=== PATIENT | male | born 1930 | race Caucasian/White ===

== ENCOUNTER 2017-05-01 08:01 | Inpatient (IN) | payer MEDICARE, OTHER ==
[2017-05-01] VITALS (17 sets, daily range): BP systolic 125–164; BP diastolic 66–96
[~2017-05-01] VITALS: Ht 180.3 cm; Wt 80.3 kg
[~2017-05-01 08:01] MED LIST: AMLODIPINE10 MG PO; ASPIRIN 81MG TA81 MG PO; DAILY MULTIPLE1 T11 PO; IMDUR 30MG. TAB30 MG PO; LEVAQUIN500 MG PO; METOPROLOL25 MG PO; PLAVIX75 M1 PO
[2017-05-01 08:20] LABS: HEMOGLOBIN 11.6 g/dL (14.1-18.0); LYMPH # 1.7 K/mm3 (0.7-4.5); LYMPH % 12.5 % (10-50)
[2017-05-01] MEDS ORDERED: AMLO5TAB PO (08:28)
--- NOTE | 2017-05-01 08:33 | Emergency Room Report ---
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 PER PT REPORT FELL OUTSIDE MONDAY, STATED PT WAS ON THE COUCH AT HIS HOUSE UNTIL EARLY THIS MORNING WHEN HE "SLID" OFF THE COUCH WHILE FAMILY WAS HELPING HIM CHANGE HIS CLOTHES. PT REPORTS R HIP PAIN SINCE INITIAL FALL MONDAY. 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 N Clinical Suspician of Infection? N Mental Status: 1 - Regular (Normal Baseline) Sepsis Risk:Low Sepsis Risk Have you (or family members/close friends) recently traveled outside the [place]? N If Yes, where/when: Have you had exposure to infectious disease within the past month? N TB? Other? Specify: Patient accidentally tripped and fell outside his home 2.5 days ago with negative LOC, landing on his right hip. He has had pain, a rotated and shortened RLE since that time, and is unable to bear weight. His sons carried him inside and placed him on the sofa. He slid off the sofa this morning. He has been urinating using a bedside urinal but has not moved his bowels. He is [place]. He denies any numbness or tingling. He does not have a PCP, and was last seen by Dr. Schumacher. ALLERGIES Coded Allergies: BANANAS (FOOD) (05/01/17) Home Medications Reported Medications ASPIRIN (Aspirin) 81 MG PO DAILY MULTIVITAMIN (Daily Multiple Vitamin) 1 TAB PO DAILY Amlodipine Besylate (Amlodipine) 5 MG PO DAILY History Medical History General CAD? No Angina: No [place]: No Hypertension? Yes Hyperlipidemia? No CHF? No DVT? No PE? No COPD? No Asthma? No Anemia? No GERD? No Gastric ulcers? No GI Bleed? No Hernia? No Thyroid Problems? No Hypothyroidism? No CVA? No Seizures? No Diabetes? No Renal Insuffiency? No End Stage Renal Disease? No UTI? No Stones? No BPH? No GB Disease: No Nephritic Syndrome? No Asplenia? No Hepatitis? No Sickle Cell Disease? No Arthritis? No Migraines? No Cataracts? No Glaucoma? No MRSA? No HIV? No TB? No Anxiety? No Depression? No Cancer? No More? No Immunization Hx DT/Tetanus Unknown Flu Refused Pneumonia Refuses Surgical Hx Previous Surgery?Y MASTOID CAROTID CARDIAC STENTS X3 Family History Family Hx Diabetes Yes CAD Yes Hypertension Yes Hyperlipidemia Yes Cancer Yes TB No Social History Smoking Hx Smoker: Never Smoker Tobacco: No Alcohol Alcohol: No Review of Systems All Other Systems Reviewed and Negative Cardiovascular denies no symptoms reported (hx cardiac stents) Gastrointestinal see HPI, constipation Musculoskeletal see HPI, denies back pain, joint pain, denies neck pain Physical Exam Vital Signs Vital Signs Date Time Temp Pulse Resp B/P Pulse O2 O2 Flow FiO2 Ox Delivery Rate 05/01 1044 98.2 74 18 157/101 96 05/01 0935 67 18 153/87 95 05/01 0824 73 18 146/91 94 05/01 0820 18 05/01 0801 97.9 71 18 164/96 94 General Appearance normal appearance, WD/WN, no apparent distress Eye Exam - bilateral eye normal exam, bilateral eye PERRL, bilateral eye EOMI Neck normal inspection, non-tender, supple, full range of motion Respiratory Status Yes: trachea midline, chest symmetrical, non tender chest. No: respiratory distress, tender on palpation, use of accessory muscles, pain on inspiration, pain on expiration, productive cough, non productive cough. Lung Sounds bilateral: normal breath sounds, lungs clear. Cardiovascular normal exam, regular rate/rhythm, no peripheral edema, no gallop, no JVD, no murmur, no rub Peripheral Pulses Peripheral Pulses 2+ dorsalis pedis (R), 2+ dorsalis pedis (L) (DP and PT pulses full B) Gastrointestinal normal bowel sounds, normal exam, non tender, soft, no organomegaly, no pulsatile mass, no guarding, no rebound Back normal inspection, no vertebral tenderness, bowel/bladder continent, no vertebral tenderness, crepitus, deformity, or stepoffs noted. Patient arrived immobilized and backboarded per EMS. Extremities pelvis stable, Exquisite point tenderness, right trochanteric region ; RLE shortened and externally rotated; ROM not checked on right hip due to shortened/rotated limb and pain level, has good ROM distally with well perfused limbs. Strength 4 Lower Ext (R), 5 Upper Ext (L), 5 Upper Ext (R), 5 Lower Ext (L) Neurologic alert, normal exam, oriented x 3, Alert, conversant, very [place] baseline, diminished ROM right hip due to fall but otherwise nonfocal exam; speech clear and fluent. Glascow Coma Scale Glascow Coma Scale Response Value EYE response: 4 Spontaneously 4 MOTOR response: 6 OBEYS 6 VERBAL response: 5 Oriented & Converses 5 Total 15 Skin intact, normal color, warm/dry Lymphatic no adenopathy Medical Decision Making LABS/Meds/Orders Pt receiving controlled substance in ED? No Results/Orders Laboratory Tests 05/01/17 0930: Urine Color YELLOW, Urine Appearance CLEAR, Urine pH 5.5, Ur Specific [place] 1.025, Urine Protein 2+ H, Urine Ketones NEGATIVE, Urine Blood 2+ H, Urine Nitrate NEGATIVE, Urine Bilirubin NEGATIVE, Urine Urobilinogen 0.2, Ur Leukocyte Esterase NEGATIVE, Urine RBC 3-5, Urine WBC OCC, Ur Squamous Epith Cells OCC, Urine Bacteria 2+, Urine Glucose NEGATIVE 05/01/17 0810: Sodium 138, Potassium 4.1, Chloride 102, Carbon Dioxide 24, BUN 42 H, Creatinine 2.9 H, Estimated Creat Clear 23 L, Estimated GFR (MDRD) 21, Glucose 112 H, Calcium 9.2, Total Bilirubin 1.0, AST 56 H, ALT 19, Alkaline Phosphatase 78, Total Protein 8.1, Albumin 3.5, Globulin 4.6 H, Albumin/ Globulin Ratio 0.8 L, WBC 13.5 H, RBC 3.76 L, Hgb 11.6 L, Hct 34.4 L, MCV 91.7, RDW 14.5, Plt Count 229, MPV 8.0, Gran % 77.8, Gran # 10.5 H, Lymphocytes % 12.5, Monocytes % 6.4, Eosinophils % 2.4, Basophils % 0.8, Lymphocytes # 1.7, Monocytes # 0.9, Eosinophils # 0.3, Basophils # 0.1, PUBS MCHC 33.8, MCH 31.0 Current Medication Orders Sig/David Start time Last Medication Dose Route Stop Time Status Admin Amlodipine Besylate 5 MG DAILY 05/02 0900 DC PO Morphine Sulfate 2 MG Q2HP PRN 05/01 1015 DC 05/01 IV 1115 Ondansetron HCl 4 MG Q6HP PRN 05/01 1015 DC IV Sodium Chloride 10 ML PRN PRN 05/01 1015 DC IV Sodium Chloride 1,000 ML .[id number] 05/01 1015 AC 05/01 IV 05/01 2334 1119 Morphine Sulfate 2 MG ONCE ONE 05/01 0830 DC 05/01 IV 05/01 0831 0820 Ondansetron HCl 4 MG ONCE ONE 05/01 0830 DC 05/01 IV 05/01 0831 0821 Morphine Sulfate 0 .STK-MED ONE 05/01 08 DC .ROUTE Ondansetron HCl 0 .STK-MED ONE 05/01 0819 DC .ROUTE Sodium Chloride 10 ML PRN PRN 05/01 0815 DC IV 05/02 0803 Orders Procedure Date/time Status CULTURE, URINE 05/01 930 Active ECHO ADULT 05/01 09 Active Decision to admit 05/01 09 Active ELECTROCARDIOGRAM REQUEST 05/01 0853 Active URINARY CATHETER INSERT 05/01 0853 Active URINALYSIS/COMPLETE 05/01 0853 Complete IV SALINE LOCK 05/01 0804 Active CBC WITH AUTO DIFF 05/01 0804 Complete CHEM 12 PROFILE 05/01 0804 Complete ADMIT PATIENT 05/01 UNK Active 12 LEAD EKG-LISA (INITIAL) 05/01 UNK Active VITAL SIGNS 05/01 UNK Active IV SALINE LOCK 05/01 UNK Active GEN NSG/PT REQ (NOT FOR MEDS!) 05/01 UNK Active URINARY CATHETER INSERT 05/01 UNK Active CODE STATUS 05/01 UNK Active PATIENT ACTIVITY ORDER 05/01 UNK Active [facility] PHYS CONSULT 05/01 UNK Active CM/EKG CM/EKG EKG rate, NSR, rhythm, no evid. of ischemic chgs, no ectopy (rate 77;), normal QRS, normal AR, normal EKG (LVH, NSR w occ APC) XRAY/CT/US XRAY/CT/US XRAY chest, femur, hip XR interpretation by reviewed by me, discussed w/radiologist Xray Results intertrochanteric fracture with vertical extension to lesser trochanter Consult MD Physician Consult 1 Consult/PCP Dr. Caldwell recommending admit to PCP and consult cardiology for preop. Time Called 08 Reason Orthopedic eval/care Physician Consult 2 Time Called 907 Physician Consult 3 Consult/PCP Uday Ponce: obtain ECHO this AM;will see on floor. Time Called 911 Reason Cardiology eval/care Comments Cardiology preop consult per request from Dr. Caldwell prior to anticipated repair of intertrochanteric fracture on right. Progress ED Progress Notes Date 05/01/17 Time 1931 Comment Patient has apparently been seen by Dr. Sexton in the past, although he had stated he had no PCP. Admitting MD changed after update following admission with Dr. Sexton and Dr. Goldstein aware. Departure Departure Time of Disposition 912 Disposition Still a Patient Clinical Impression Primary Impression: Fracture, intertrochanteric, right femur Qualifiers: Encounter type: initial encounter Fracture type: closed Condition STABLE Referrals NO REFERRAL (PCP) ED Critical Care Critical Care No at [phone]
--- NOTE | 2017-05-01 09:27 | RADIOLOGY REPORT PS360 ---
CHEST-AP VIEW ONLY Ordering physician: Gayathri Hummel MD Age: 86 years Male INDICATION: chest symptomsFX HIP. Fall. Hip fracture Chest injury PROCEDURE: CHEST-AP VIEW ONLY/ AP portable CXR p FINDINGS: Prior P CXR 11/14/[address] obscuring detail particularly at chest wall. No rib fractures evident. No pneumothorax. No pleural effusion. . Granulomatous calcified hilar nodes bilaterally similar to prior studies. Lungs are clear with no active disease... No acute findings Borderline-mild cardiomegaly. Normal pulmonary vascularity. Hilar and mediastinal structures appear stable & satisfactory. Chest wall unremarkable... I would note that the right aspect of T10 vertebra is not is well delineated as adjacent vertebra however this appearance is unchanged since at 11/13/2016 portable chest film, may merely be projectional & related to the other changes at this level including the prominent marginal osteophytes to the right at T10-11. However there is back pain a would recommend a T-spine series long-standing significant lower thoracic pain consider further evaluation with CT chest/ CT T-spine Postsurgical changes base of right neck likely from previous thyroid surgery. IMPRESSION . lungs clear with nothing definitely acute. Patient on backboard Borderline -mild cardio megaly Cortex along Right aspect of T10 is not as well delineated as other vertebral bodies but I suspect this is stable since October. Question some vague soft tissue density along the right aspect of T10.. However if there should be lower back pain additional evaluation with at least a thoracic spine series when can be tolerated;, with low threshold for pursuing CT of chest or T-spine would be appropriate.--particularly If this appearance seems real and persist persist follow-up plain films T-spine
--- NOTE | 2017-05-01 09:27 | RADIOLOGY REPORT PS360 ---
FEMUR-RT-2 VIEWS HISTORY: fell, has shortened/externally rotated RLE;can't bear wt Right hip pain/fracture. Patient Age: 86 years: Male Ordering Physician: Gayathri Hummel MD TECHNIQUE: Limited AP view of proximal femur a lateral view of distal femur obtained. Patient on backboard. COMPARISON :Single view right hip from today FINDINGS Intertrochanteric fracture right hip, which extends oblique fashion patient to the cortex medial subtrochanteric region,, inferior to the lesser trochanter. Comminuted fracture of the lesser trochanter. Current views are limited not optimal. The right femoral head appears intact the hip joint spaces intact. IMPRESSION: Intertrochanteric fracture which extends to the subtrochanteric region medially , inferior to the comminuted lesser trochanteric fracture. Likely it is the vertical fracture line passing through the base of comminuted lesser trochanter fracture that extends to the subtrochanteric region.. . additional views of right hip pending
[2017-05-01 09:49] LABS: URINE BILIRUBIN - DIPSTICK NEGATIVE (NEG); URINE BLOOD 2+ (NEG)
[2017-05-01 10:15] LABS: URINE SQUAMOUS CELLS OCC #/hpf (OCC)
--- NOTE | 2017-05-01 12:06 | CONSULT NOTE ---
Standard Demographics Patient Demo Date of Consultation: 05/01/17 Referring Provider: Pepper Goldstein MD Reason for Consultation: Pre-op evaluation PRIMARY DIAGNOSIS: RIGHT HIP FRACTURE Problem list Problem list: 1. HTN A. Echocardiogram 11/14/16 EF 40-45% with moderate to severe MR 2. JESÚS A. Right CEA, about [id number] B. Carotid ultrasound, 11/14/16, 50-69%LICA stenosis, less than 20% RCA stenosis 3. Remote tobacco use, stopped about 40 yrs ago 4. Hyperlipidemia A. LDL 146, 10/2016 5. CKD, stage 4 with Cr 3.0 and GFR 20 6. Abdominal aortic aneurysm, 5 cm, aorta ultrasound 10/2016 7. Coronary artery disease A. Non-ST elevation myocardial infarction, 11/15/16 B. Cardiac catheterization 11/15/2016 showing distal 50-60 percent stenosis of the LEFT main, proximal 50-60 percent stenosis of the left anterior descending, mid vessel 40-50 percent stenosis, very distal sequential 80 percent stenosis with the left anterior descending wrapping around the apex. Nondominant circumflex gives rise to a large ramus with a proximal 30-40 percent nonflow limiting stenosis while the true circumflex has 30 percent mid vessel stenosis. RIGHT coronary artery is large dominant vessel with critical 90 percent ostial stenosis followed by complex 60-70 percent stenosis followed by additional complex long 90 percent stenosis both proximal and distal to the RV marginal followed by the additional complex 90 percent stenosis and distal 40 percent stenosis. LEFT atrial ejection fraction 55 percent. C. 3 drug-eluting stents placed to the RIGHT coronary artery, 11/15/2016. D. Patient initially placed on dual antiplatelet therapy but patient discontinued Plavix and is only taking an aspirin daily 8. Peripheral arterial disease A. RIGHT renal artery stenosis of 40-50 percent proximally, nonflow limiting. LEFT renal artery singular with a severe proximal complex long 80-90 percent stenosis. History of present illness: History of present illness: 86-year-old white male with multiple medical conditions including coronary artery disease, carotid artery stenosis, stage IV chronic kidney disease and abdominal aortic aneurysm was admitted through the emergency department today for RIGHT hip fracture. Patient states he fell on Monday without loss of consciousness and continued to have pain through yesterday. He did not want a running about his weekend but haven't come into the hospital so he waited until today. He denies any recent chest pain or shortness of breath with activity. Patient is admitted with plans for surgery today with cardiology consulted for preop evaluation. Past Medical History: General: Hypertension Yes CVA No Seizures Yes TB No COPD No Asthma No Diabetes No Angina No [place] No Hyperlipidemia No Urinary No Cancer No Rheumatic H.D. No Ulcers No MRSA No GB Disease No Past Surgical HX: Previous Surgery?Y MASTOID CAROTID CARDIAC STENTS X3 Allergies Coded Allergies: BANANAS (FOOD) (11/14/16) Home medications: Reported Medications ASPIRIN (Aspirin) 81 MG PO DAILY MULTIVITAMIN (Daily Multiple Vitamin) 1 TAB PO DAILY Amlodipine Besylate (Amlodipine) 5 MG PO DAILY Current Medications: Current Medications Amlodipine Besylate 5 MG DAILY PO Morphine Sulfate 0 .STK-MED ONE .ROUTE (DC) Sodium Chloride 1,000 ML .STK-MED ONE IV (DC) Morphine Sulfate 2 MG Q2HP PRN IV Ondansetron HCl 4 MG Q6HP PRN IV Sodium Chloride 10 ML PRN PRN IV Sodium Chloride 1,000 ML .[id number] IV Morphine Sulfate 2 MG ONCE ONE IV (DC) Ondansetron HCl 4 MG ONCE ONE IV (DC) Morphine Sulfate 0 .STK-MED ONE .ROUTE (DC) Ondansetron HCl 0 .STK-MED ONE .ROUTE (DC) Sodium Chloride 10 ML PRN PRN IV Immunization HX DT/Tetanus Unknown Flu Refused Pneumonia Refuses Family history Family HX Family Hx Insignificant No Diabetes Yes CAD Yes Hypertension Yes Hyperlipidemia Yes Cancer Yes TB No Social Hx: Smoking HX Tobacco No Are you/the child exposed to second-hand smoke: No Alcohol Alcohol: No Hx of Drug Use Drug Use? No Patien't marital status is Patient's support system is good Review of systems: Constitutional No: no symptoms reported. Respiratory No: no symptoms reported. Cardiovascular No no symptoms reported Gastrointestinal/Abdominal No no symptoms reported Genitourinary No: no symptoms reported. Musculoskeletal see HPI. Neurological Yes: seizure disorder. Exam: Admission Vital Signs: 1ST Vital Signs Result Date Time Pulse Ox 94 05/01 0801 B/P 164/96 05/01 0801 Temp 97.9 05/01 0801 Pulse 71 05/01 0801 Resp 18 05/01 0801 O2 Delivery ROOM AIR 05/01 1126 Last Vital Signs: Vital Signs Result Date Time Pulse Ox 96 05/01 1141 B/P 154/77 05/01 1141 O2 Delivery ROOM AIR 05/01 1141 Temp 97.1 05/01 1141 Pulse 75 05/01 114 Resp 20 05/01 1141 Exam General appearance: alert, awake, no acute distress Neck: carotid bruit Cardiovascular: regular rate & rhythm, regular rate and rhythm with frequent ectopy. Patient has a holosystolic grade 2 to 3/6 systolic ejection murmur noted at the apex.patient also has a murmur in the aortic area grade 2/6. Respiratory: clear to auscultation ABD: soft, no tenderness Extremities: RIGHT leg in traction. Trace edema with good pulses noted of the LEFT lower extremity. Neuro: alert, intact, oriented Laboratory data: Laboratory Tests 05/01/17929: Urine Color YELLOW, Urine Appearance CLEAR, Urine pH 5.5, Ur Specific [place] 1.025, Urine Protein 2+ H, Urine Ketones NEGATIVE, Urine Blood 2+ H, Urine Nitrate NEGATIVE, Urine Bilirubin NEGATIVE, Urine Urobilinogen 0.2, Ur Leukocyte Esterase NEGATIVE, Urine RBC 3-5, Urine WBC OCC, Ur Squamous Epith Cells OCC, Urine Bacteria 2+, Urine Glucose NEGATIVE 05/01/17 0810: Sodium 138, Potassium 4.1, Chloride 102, Carbon Dioxide 24, BUN 42 H, Creatinine 2.9 H, Estimated Creat Clear 23 L, Estimated GFR (MDRD) 21, Glucose 112 H, Calcium 9.2, Total Bilirubin 1.0, AST 56 H, ALT 19, Alkaline Phosphatase 78, Total Protein 8.1, Albumin 3.5, Globulin 4.6 H, Albumin/ Globulin Ratio 0.8 L, WBC 13.5 H, RBC 3.76 L, Hgb 11.6 L, Hct 34.4 L, MCV 91.7, RDW 14.5, Plt Count 229, MPV 8.0, Gran % 77.8, Gran # 10.5 H, Lymphocytes % 12.5, Monocytes % 6.4, Eosinophils % 2.4, Basophils % 0.8, Lymphocytes # 1.7, Monocytes # 0.9, Eosinophils # 0.3, Basophils # 0.1, PUBS MCHC 33.8, MCH 31.0 Microbiology Date/Time Procedure - Status Source Growth 05/01 930 Urine Culture - RECD URINE CATH Plan: Assessment: 1. RIGHT hip fracture with plans for surgical correction. 2. Coronary artery disease as noted above with recent drug-eluting stents placed in the RIGHT coronary artery in October of this year. Patient has been stable on aspirin therapy. Electrocardiogram today is sinus rhythm without acute ST segment changes. He has left ventricular hypertrophy with repolarization abnormalities. 3. Chronic kidney disease, stage IV 4. Carotid artery stenosis, moderate 5. Abdominal aortic aneurysm, 5 cm, clinically stable 6. Hypertension 7. History of medication noncompliance Recommendations: 1. Patient is at an increased but acceptable risk to proceed with surgical correction of his RIGHT hip fracture. Preliminary echocardiogram results shows preserved ejection fraction with continued moderate to severe mitral regurgitation without evidence of significant aortic stenosis. 2. Would recommend continuing aspirin and Norvasc. Pt's states he has not been taking coreg or isosorbide dinitrate for some time. at 1205
--- NOTE | 2017-05-01 12:42 | CONSULT NOTE ---
Consultation findings: Referring physician: Emergency department Date of examination: 05/01/17 Time of examination: 1100 Exam findings: The patient is an 86-year-old gentleman who fell while at home Monday. He states that he noted his "RIGHT leg did not look quite RIGHT" but decided not to come to the hospital until his family prompted him to today. The patient presents medical history of having had a non-STEMI cardio infarction back in October. He was given a stent at that time by Dr. Figueroa. The family states that the patient self discontinued Plavix but continued aspirin. He also has a history of having had multiple seizures and has been seen at [facility] for this but again, seems to self discontinued his seizure medications. He also gives a history of having had an abdominal aneurysm. This is believed to be 5 cm in size. The emergency department physician has documented this quite well as has his cardiology consult. These are reviewed and are not repeated here. Fred Cabrera shows the patient to be alert cooperative and fully cognizant. His RIGHT hip is shortened and externally rotated. He has 1+ pedal pulses bilaterally in the dorsalis pedis and posterior tibialis pulses. He is sensate to light touch. Mild edema present in the RIGHT foot. I protuberant abdomen is noted. I do not detect a pulsatile mass on exam. X-rays the RIGHT hip are reviewed. These show a three-part intertrochanteric hip fracture of the RIGHT. Femoral cortical bone appears excellent as far as mass.. Impression: Subtrochanteric RIGHT hip fracture Seizure disorder Non-STEMI myocardial infarction in October Medication noncompliance The laboratory studies show evidence of a urinary tract infection. Renal function is quite depressed as well. Recommendations: We like to proceed with the hip stabilization using a short gamma nail if possible. Interestingly, the patient's noncompliance with his anticoagulation medicines creates a window of opportunity here we could stabilize her fracture and getting back on his Plavix or other anticoagulants as his attending feels is appropriate. We'll plan on 2 g of Ancef secondary to the patient's size but will likely space the Ancef out much further than normally secondary to the renal clearance issues. I've spoken with the family regarding the surgical and nonsurgical options. They are in agreement that surgical treatment is indicated. at 1242
--- NOTE | 2017-05-01 12:48 | RADIOLOGY REPORT PS360 ---
HIP RT 2- view HISTORY: FALL, OUTWARD ROTATION OF RLE Patient Age: 86 years: Male Ordering Physician: Nasreen Goldstein MD TECHNIQUE: AP and crosstable lateral view of right hip performed. No AP pelvis was imaged as per typical protocol. COMPARISON :Right femur from today FINDINGS The intertrochanteric fracture is again identified as discussed on right femur study. In addition to the oblique fracture through the trochanteric region there is a vertical fracture to the base of the lesser trochanter ; with a mildly comminuted fracture involving the lesser trochanter. Slight medial displacement of the large entire lesser trochanteric fragment noted. The crosstable lateral view suggests mild angulation apex of fracture directed posteriorly. The right femoral head and neck remain intact. Right hip joint space well maintained. What is seen at the partially imaged right hemipelvis unremarkable. Sacrum is not well visualized and cannot exclude abnormalities sacrum on the current studies. IMPRESSION: Intertrochanteric fracture right hip Fracture line extends vertically through the base of the lesser trochanter to the subtrochanteric region Comminuted fracture involving the the lesser trochanter.
--- NOTE | 2017-05-01 15:15 | Anesthesia Record ---
Anesthesia Record Part I Total IV fluids: 1100 EBL (ml): 100 Urine Output: 400 Units of blood given: 0 B/P: 151/65 % SaO2: 94 Pulse: 83 Resps: 10 Temp: 98.1 Patient is: Awake, Stable Stable to PACU at: 1505 at 1510
--- NOTE | 2017-05-01 15:16 | Anesthesia Record ---
Anesthesia Record Part II Discharge time: 1535 Destination: Second Floor PACU nurse assessment review? Yes Patient is: Awake, Stable Anesthesia complications? No at 2473
--- NOTE | 2017-05-01 16:25 | HISTORY AND PHYSICAL REPORT ---
Demographics: Admit date: 05/01/17 Chief complaint: RIGHT hip pain PRIMARY DIAGNOSIS: RIGHT HIP FRACTURE Allergies: Coded Allergies: BANANAS (FOOD) (05/01/17) History of present illness: History of present illness: 86-year-old white male with multiple medical conditions including coronary artery disease, carotid artery stenosis, stage IV chronic kidney disease and abdominal aortic aneurysm was admitted through the emergency department today for RIGHT hip fracture. Patient states he fell on Monday without loss of consciousness and continued to have pain through yesterday. He did not want a running about his weekend but haven't come into the hospital so he waited until today. He denies any recent chest pain or shortness of breath with activity. Patient is admitted with plans for surgery today. The above per cardiology service Patient is now postop from RIGHT hip fracture repair. He denies pain. Notes have been reviewed and confirmed that the patient has not been taking medications as prescribed at discharge from his last hospitalization. Past medical history: Family HX Family Hx Insignificant No Diabetes No CAD Yes Hypertension Yes Hyperlipidemia Yes Cancer No TB No Immunization HX DT/Tetanus Unknown Flu Refused Pneumonia Refuses TB Test in last year No General CAD? No Angina: No PA: No Hypertension? Yes Hyperlipidemia? No CHF? No DVT? No PE? No COPD? No Asthma? No Anemia? No GERD? No Gastric ulcers? No GI Bleed? No Hernia? No Thyroid Problems? No Hypothyroidism? No CVA? No Seizures? Yes Diabetes? No Renal Insuffiency? No UTI? No Stones? No BPH? No GB Disease: No Nephritic Syndrome? No Asplenia? No Hepatitis? No Sickle Cell Disease? No Arthritis? No Migraines? No Cataracts? No Glaucoma? No MRSA? No HIV? No TB? No Anxiety? No Depression? No Cancer? No More? No Past Surgical HX Previous Surgery?Y MASTOID CAROTID CARDIAC STENTS X3 Current home meds: Reported Medications ASPIRIN (Aspirin) 81 MG PO DAILY MULTIVITAMIN (Daily Multiple Vitamin) 1 TAB PO DAILY Amlodipine Besylate (Amlodipine) 5 MG PO DAILY Social Hx: Smoking HX Tobacco No Are you/the child exposed to second-hand smoke: No Alcohol Alcohol: No Hx of Drug Use Drug Use? No Patien't marital status is Patient's support system is good Review of systems: Constitutional no symptoms reported. Respiratory no symptoms reported. Cardiovascular no symptoms reported Gastrointestinal/Abdominal no symptoms reported Genitourinary no symptoms reported. Musculoskeletal see HPI. Neurological Yes: no symptoms reported. Exam: Lab data for last 24 hours: Laboratory Tests 05/01/17929: Urine Color YELLOW, Urine Appearance CLEAR, Urine pH 5.5, Ur Specific [place] 1.025, Urine Protein 2+ H, Urine Ketones NEGATIVE, Urine Blood 2+ H, Urine Nitrate NEGATIVE, Urine Bilirubin NEGATIVE, Urine Urobilinogen 0.2, Ur Leukocyte Esterase NEGATIVE, Urine RBC 3-5, Urine WBC OCC, Ur Squamous Epith Cells OCC, Urine Bacteria 2+, Urine Glucose NEGATIVE 05/01/17809: Sodium 138, Potassium 4.1, Chloride 102, Carbon Dioxide 24, BUN 42 H, Creatinine 2.9 H, Estimated Creat Clear 23 L, Estimated GFR (MDRD) 21, Glucose 112 H, Calcium 9.2, Total Bilirubin 1.0, AST 56 H, ALT 19, Alkaline Phosphatase 78, Total Protein 8.1, Albumin 3.5, Globulin 4.6 H, Albumin/ Globulin Ratio 0.8 L, WBC 13.5 H, RBC 3.76 L, Hgb 11.6 L, Hct 34.4 L, MCV 91.7, RDW 14.5, Plt Count 229, MPV 8.0, Gran % 77.8, Gran # 10.5 H, Lymphocytes % 12.5, Monocytes % 6.4, Eosinophils % 2.4, Basophils % 0.8, Lymphocytes # 1.7, Monocytes # 0.9, Eosinophils # 0.3, Basophils # 0.1, PUBS MCHC 33.8, MCH 31.0 Microbiology 05/01 930 URINE CATH: Urine Culture - RECD Admission vital signs: 1ST Vital Signs Result Date Time Pulse Ox 94 05/01 801 B/P 164/96 05/01 801 Temp 97.9 05/01 801 Pulse 71 05/01 801 Resp 18 05/01 801 O2 Delivery ROOM AIR 05/01 1126 Exam General appearance: alert, active, awake, no acute distress Eyes: anicteric Cardiovascular: regular rate & rhythm Respiratory: clear to auscultation ABD: soft, no tenderness Extremities: neurovascularly intact in both feet Plan: Problem List 1. Fracture, intertrochanteric, right femur 2. Status post coronary artery stent placement Onset Date 11/15/16 3. Abdominal aortic aneurysm 4. Moderate mitral regurgitation 5. Chronic kidney disease 6. History of myocardial infarction 7. Medical non-compliance Plan: 1. Patient will be placed on his home medications. A statin and Plavix will be restarted. 2. PT and OT evaluations in a.m.
--- NOTE | 2017-05-01 17:38 | RADIOLOGY REPORT PS360 ---
HIP RT 2-3V W/PELVIS IF PERFOR HISTORY: Follow-up right hip ORIF. Follow-up fracture fx ORDERING PHYSICIAN: Flavio Sexton MD PATIENT AGE: 86 years COMPARISON: EXAM from the same day FINDINGS: Status post ORIF of the right hip. A gamma narrowing short intramedullary roland has been placed stabilizing the comminuted intertrochanteric fracture with mandaen of anatomic alignment and no significant displacement. Postsurgical changes are present with postsurgical gas and clips. IMPRESSION: Good alignment status post ORIF right comminuted intertrochanteric hip fracture
--- NOTE | 2017-05-01 17:38 | RADIOLOGY REPORT PS360 ---
HIP RT 2-3V W/PELVIS IF PERFOR HISTORY: Follow-up right hip ORIF. Follow-up fracture fx ORDERING PHYSICIAN: Flavio Sexton MD PATIENT AGE: 86 years COMPARISON: EXAM from the same day FINDINGS: Status post ORIF of the right hip. A gamma narrowing short intramedullary roland has been placed stabilizing the comminuted intertrochanteric fracture with confucianism of anatomic alignment and no significant displacement. Postsurgical changes are present with postsurgical gas and clips. IMPRESSION: Good alignment status post ORIF right comminuted intertrochanteric hip fracture
--- NOTE | 2017-05-01 17:40 | RADIOLOGY REPORT PS360 ---
FLUOROSCOPY CHARGE(<1 HR) CLINICAL INDICATION: RIGHT HIP GAMMA NAIL PLACEMENT ORDERING PHYSICIAN: Flavio Sexton MD PATIENT AGE: 86 years COMPARISON: Prereduction film of the same day FINDINGS: 4 images are submitted with the C-arm showing interval placement of a gamma nail and short intramedullary roland stabilizing comminuted right intertrochanteric hip fracture with good alignment. IMPRESSION: Good alignment status post ORIF right hip fracture
--- NOTE | 2017-05-01 21:42 | Operative Note ---
Procedure/Operative Record Date of Procedure: 05/01/17 Pre-op diagnosis: Right hip intertrochanteric fracture Post-op diagnosis: same Procedure performed: Gamma nail stabililzation of Right hip intertrochanteric fracture Surgeon: Castro Caldwell Anesthesia: spinal Indications: Pt presents with 3-part right hip intertrochanteric fracture. Surgical stabilization is considered standard of care and a life saving intervention to improve ambulation, decrease pain and morbidity/mortality associated with the fracture. Description of procedure: Pt was taken to the OR and a spinal administered. He was placed in the fracture table and traction and internal rotation used to reduce the hip fracture. He was then prepped and draped and C-arm used to locate the appropriate entry point for the guidewire for the [place] short gamma nail. The entry awl was placed followed by the wire, soft tissue protector and reamer. A 125 degree gamma nail was placed to provide stabililzation of the right hip intertrochanteric fracture , followed by lag screw placement, set screw placement, and crosslocking. C-arm confirmed appropriate placement of the gamma nail. Incisions (3) were irrigated and closed and dressings applied. The patient was transported to the recovery room in good condition. EBL (ml): 100 Implant: [place] 125 degree titanium Gamma nail with 100mm lag screw, set screw and crosslock screw Complications: none at 3711
--- NOTE | 2017-05-01 21:42 | Operative Note ---
Procedure/Operative Record Date of Procedure: 05/01/17 Pre-op diagnosis: Right hip intertrochanteric fracture Post-op diagnosis: same Procedure performed: Gamma nail stabililzation of Right hip intertrochanteric fracture Surgeon: Castro Caldwell Anesthesia: spinal Indications: Pt presents with 3-part right hip intertrochanteric fracture. Surgical stabilization is considered standard of care and a life saving intervention to improve ambulation, decrease pain and morbidity/mortality associated with the fracture. Description of procedure: Pt was taken to the OR and a spinal administered. He was placed in the fracture table and traction and internal rotation used to reduce the hip fracture. He was then prepped and draped and C-arm used to locate the appropriate entry point for the guidewire for the [place] short gamma nail. The entry awl was placed followed by the wire, soft tissue protector and reamer. A 125 degree gamma nail was placed to provide stabililzation of the right hip intertrochanteric fracture , followed by lag screw placement, set screw placement, and crosslocking. C-arm confirmed appropriate placement of the gamma nail. Incisions (3) were irrigated and closed and dressings applied. The patient was transported to the recovery room in good condition. EBL (ml): 100 Implant: [place] 125 degree titanium Gamma nail with 100mm lag screw, set screw and crosslock screw Complications: none at 5896
--- NOTE | 2017-05-01 21:46 | ACUTE CARE PROGRESS NOTE ---
Progress note Date: 05/01/17 Assessment: Seen at 2130 for post op check Sleeping but arouses easily. Coherent and states in minimal pain, but "wants morphine to sleep." Doesn't understant nurse call button and bed controller. Pedal pulses intact, moves both feet, sensate to light touch. Dressing clean and dry. Impression: 1. Fracture, intertrochanteric, right femur Qualifiers Encounter type: initial encounter Fracture type: closed 2. Status post coronary artery stent placement Onset Date: 11/15/16 3. Abdominal aortic aneurysm 4. Moderate mitral regurgitation 5. Chronic kidney disease 6. History of myocardial infarction 7. Medical non-compliance Plan: WBAT in a.m. Instructed on foot ankle movement tonight. OK to have SCD on both legs. Recommend strict decubitus precautions (anesthesia noted early breakdown of skin on buttocks during the spinal) at 7074
--- NOTE | 2017-05-01 21:55 | RADIOLOGY REPORT PS360 ---
PROCEDURE: 2-D M-mode and color Doppler study INDICATIONS FOR THE TEST: Chest pain COPD Heart Murmur Tobacco Smoking Palpitations Fatigue Syncope Edema HypertensionXDiabetes Mellitus Rheumatic Fever SOBXDOE Obesity Hyperlipidemia Family History HD Additional History PRE-OP HIP FX,CAD PATIENT INFORMATION HEIGHT: 70 WEIGHT:200 GENDER: Male B/P:153/87 2-D/M-MODE INTERPRETATION: 2-D MEASUREMENTS OBSERVED VALUES IN CMS Right Ventricular Dimension (RVDd) 1.8 Interventricular Septum (Thickness)(IVsd) 1.4 Left Ventricular Internal Dimensions(LVIDd) 5.7 Left Ventricular Posterior Wall (Thickness)(LVPWd) 1.2 Aortic Root 3.4 Aortic Cusp Separation .9 Left Atrial Dimensions (LAD) 4.4 2D 1. Left atrium is mildly enlarged, left ventricle is normal size, there is mild concentric left ventricular hypertrophy present, visually estimated ejection fraction approximately 50%, there appears to be mild hypokinesis involving the inferobasal and posterobasal wall, endocardial surfaces are somewhat poorly visualized. 2. The right atrium and right ventricle are normal size and contractility. 3. The aortic valve is thickened and calcified leaflet continue to display mobility. 4. The mitral valve has mitral calcification, which extends and both anterior and posterior mitral leaflet. 5. The pulmonic valve is poorly visualized. 6. No significant pericardial effusion noted. DOPPLER INTERROGATION: Doppler interrogation of the aortic, mitral and tricuspid valvular presence of moderate mitral and mild tricuspid regurgitation, tricuspid and jet velocity insufficient for calculation of the right ventricular systolic pressure, grade 2 diastolic dysfunction seen with tissue Doppler evidence of raised left atrial pressure. CONCLUSION: 1. Mildly enlarged left atrium, normal left ventricular size, mild concentric left ventricular hypertrophy, visually estimated ejection fraction 50% with segmental wall motion abnormality described above, grade 2 diastolic dysfunction seen with tissue Doppler evidence of raised left atrial pressure. 2. Thickened and calcified aortic valve without Doppler evidence of significant aortic stenosis, or aortic insufficiency. 3. Moderate mitral and mild tricuspid regurgitation. 4. No significant pericardial effusion noted.
[2017-05-02 03:56] VITALS: BP 150/70
--- NOTE | 2017-05-02 07:05 | ACUTE CARE PROGRESS NOTE (QUA) ---
Progress Notes Subjective Date 05/02/17 Time 0703 Note Patient has slept off and on overnight. His pain is well controlled. Vital signs reviewed. Patient appears comfortable. Lungs are clear. Heart has a regular rate and rhythm with a systolic murmur at the apex. Await labs this morning. Care management consult for post hospital care. PT OT consults today. Objective Findings Last VS-Temp:98.6 B/P:150/70 Pulse:76 Resp:20 SaO2:97 OXYGEN Last weight lbs:177 oz:1 K.315 Method:Bed Scales Assessment/Plan Problem List 1. Fracture, intertrochanteric, right femur Qualifiers: Encounter type: initial encounter Fracture type: closed 2. Status post coronary artery stent placement Onset Date: 11/15/16 3. Abdominal aortic aneurysm 4. Moderate mitral regurgitation 5. Chronic kidney disease 6. History of myocardial infarction 7. Medical non-compliance Patient condition Stable Plan: continue current care This inpt stay is expected to cross 2 MNs from start of care Yes at 0704
[2017-05-02 07:08] LABS: LYMPH # 1.7 K/mm3 (0.7-4.5); LYMPH % 13.4 % (10-50)
[2017-05-02 07:09] LABS: HEMOGLOBIN 9.7 g/dL (14.1-18.0)
[2017-05-02 07:47] VITALS: BP 153/67
[2017-05-02 08:30] VITALS: BP 140/72
--- NOTE | 2017-05-02 09:04 | ACUTE CARE PROGRESS NOTE (QUA) ---
Progress Notes Subjective Date 05/02/17 Time 0915 Note 86 yo WM in chair in NAD. Sore at surgery site. No chest pains. Objective Findings Last VS-Temp:98.3 B/P:153/67 Pulse:82 Resp:18 SaO2:98 OXYGEN Last weight lbs:177 oz:1 K.315 Method:Bed Scales Exam General appearance: alert, awake, no acute distress Cardiovascular: regular rate & rhythm Respiratory: clear to auscultation Reviewed: medications, vital signs, lab results Assessment/Plan Problem List 1. Fracture, intertrochanteric, right femur Qualifiers: Encounter type: initial encounter Fracture type: closed 2. Status post coronary artery stent placement Onset Date: 11/15/16 3. Abdominal aortic aneurysm 4. Moderate mitral regurgitation 5. Chronic kidney disease 6. History of myocardial infarction 7. Medical non-compliance Patient condition Stable Plan: continue current medications This inpt stay is expected to cross 2 MNs from start of care Yes at 0909
--- NOTE | 2017-05-02 09:09 | PHARMACY CLINIC NOTE ---
Patient Demographics Patient Demographics Admission date: 05/01/17 Date: 05/02/17 Time: 0909 Allergies Coded Allergies: BANANAS (FOOD) (05/01/17) HEIGHT- FT: 5 IN: 11.00 K.315 VTE General Information Labs: Laboratory Tests 05/02 0610 Hematology Hgb (14.1 - 18.0 g/dL) 9.7 L Hct (42.0 - 52.0 %) 29.5 L Plt Count (142 - 424 K/mm3) 198 Disclaimer The following section includes nursing documentation that has been pulled in for pharmacy review. Patient's VTE score: 1 Patient's VTE Risk: VERY LOW RISK Clinical trial participant? No VTE prophylaxis NQF [id number] VTE prophylaxis ordered? Yes Type of prophylaxis/treatment: NATALIIA at 0909
--- NOTE | 2017-05-02 11:37 | ACUTE CARE PROGRESS NOTE ---
Progress note Date: 05/02/17 Assessment: Patient is postop day #1--he is undergone short gamma nail stabilization for a three-part intertrochanteric RIGHT hip fracture. On examination he is awake, coherent, and appropriate. Complains of minimal pain. Pedal pulses intact RIGHT lower extremity. He is sensate to light touch. Moves foot and ankle to command. Hematocrit 29 percent, creatinine 3.1. Kay catheter in place. Decubitus precautions in place. Physical therapy seeing the patient now Impression: 1. Fracture, intertrochanteric, right femur Qualifiers Encounter type: initial encounter Fracture type: closed 2. Status post coronary artery stent placement Onset Date: 11/15/16 3. Abdominal aortic aneurysm 4. Moderate mitral regurgitation 5. Chronic kidney disease 6. History of myocardial infarction 7. Medical non-compliance Plan: Mobilize with weightbearing as tolerated. Cases been discussed with Dr. Goldstein who advises Dr. Sexton is the attending. From an orthopedic standpoint, he can be discharged at any time but likely will need rehabilitation. The Kay catheter can be discontinued unless it is desirable to keep it from a urinary tract infection point of view. We'll discuss merits of repeating Ancef with pharmacy based on his renal function. Also, from an orthopedic standpoint, DVT prophylaxis pharmaceutically would be appropriate as well. Typically ASA 325 daily would be sufficient or if reinstitution initiation of Plavix+ ASA 81 mg is warranted that would be satisfactory as well. at 0347
[2017-05-02 11:41] VITALS: BP 140/72
[2017-05-02 15:37] VITALS: BP 132/53
[2017-05-02 19:14] VITALS: BP 145/59
[2017-05-03 06:01] VITALS: BP 145/73
--- NOTE | 2017-05-03 06:36 | ACUTE CARE PROGRESS NOTE (QUA) ---
Progress Notes Subjective Date 05/03/17 Time 0634 Note Patient has no new complaints. He denies pain in the hip. His appetite is poor. He tells me it took him 30 minutes to ambulate about 10 feet yesterday. He was evaluated by both occupational therapy and physical therapy. He is awake and alert. Lungs are clear. Heart has a regular rate and rhythm with previously noted murmur. Abdomen is soft and nontender. Continue current care. Anticipate discharge to [facility] tomorrow. Await complete blood count this morning Objective Findings Last VS-Temp:98.4 B/P:145/73 Pulse:81 Resp:20 SaO2:96 ROOM AIR Last weight lbs:177 oz:1 K.315 Method:Bed Scales Assessment/Plan Problem List 1. Fracture, intertrochanteric, right femur Qualifiers: Encounter type: initial encounter Fracture type: closed 2. Status post coronary artery stent placement Onset Date: 11/15/16 3. Abdominal aortic aneurysm 4. Moderate mitral regurgitation 5. Chronic kidney disease 6. History of myocardial infarction 7. Medical non-compliance Patient condition Stable Plan: continue current care This inpt stay is expected to cross 2 MNs from start of care Yes at 0635
[2017-05-03 06:38] LABS: LYMPH # 1.3 K/mm3 (0.7-4.5); LYMPH % 10.4 % (10-50)
[2017-05-03 08:00] VITALS: BP 140/70
[2017-05-03 08:56] VITALS: BP 140/70
--- NOTE | 2017-05-03 11:26 | ACUTE CARE PROGRESS NOTE (QUA) ---
Progress Notes Subjective Date 05/03/17 Time 0915 Note 86 yo WM in chair in NAD. Denies any chest pains. Ambulating some in room with help. Objective Findings Last VS-Temp:98.5 B/P:140/70 Pulse:80 Resp:16 SaO2:93 ROOM AIR Last weight lbs:177 oz:1 K.315 Method:Bed Scales Exam General appearance: alert, awake, no acute distress Cardiovascular: regular rate & rhythm, murmur Respiratory: clear to auscultation Reviewed: medications, vital signs, lab results Assessment/Plan Problem List 1. Fracture, intertrochanteric, right femur Qualifiers: Encounter type: initial encounter Fracture type: closed 2. Status post coronary artery stent placement Onset Date: 11/15/16 3. Abdominal aortic aneurysm 4. Moderate mitral regurgitation 5. Chronic kidney disease 6. History of myocardial infarction 7. Medical non-compliance Patient condition Stable Plan: continue current care This inpt stay is expected to cross 2 MNs from start of care Yes at 8882
[2017-05-03 16:00] VITALS: BP 151/71
--- NOTE | 2017-05-03 16:01 | ACUTE CARE PROGRESS NOTE ---
Progress note Date: 05/03/17 Assessment: Awake alert no apparent distress. He does note that physical therapy is tiring. He moves his ankle and toes to command. Sensate to light touch. Pedal pulses intact. His calves are nontender no evidence of blood clots or DVT. Kay catheter is still in place and nursing staff says her about removing it. Dressings clean and dry. Hematocrit 27 percent. Impression: 1. Fracture, intertrochanteric, right femur Qualifiers Encounter type: initial encounter Fracture type: closed 2. Status post coronary artery stent placement Onset Date: 11/15/16 3. Abdominal aortic aneurysm 4. Moderate mitral regurgitation 5. Chronic kidney disease 6. History of myocardial infarction 7. Medical non-compliance Plan: Remove Kay today. Please change dressing when the patient is up out of the chair. Orthopedically will plan on seeing him back in 10-12 days at 1601
[2017-05-03 19:00] VITALS: BP 144/67
[2017-05-03 21:30] VITALS: BP 144/67
[2017-05-04 03:59] VITALS: BP 129/72
--- NOTE | 2017-05-04 07:03 | ACUTE CARE PROGRESS NOTE (QUA) ---
Progress Notes Subjective Date 05/04/17 Time 0701 Note Patient has no complaints. He preferred to sleep in the recliner overnight as this helped with overall musculoskeletal stiffness. Patient appears well. Lungs are clear. Heart has a regular rate and rhythm. Patient be discharged from [facility] today to continue rehab after hip fracture. Objective Findings Last VS-Temp:97.7 B/P:129/72 Pulse:78 Resp:16 SaO2:96 ROOM AIR Last weight lbs:177 oz:1 K.315 Method:Bed Scales Assessment/Plan Problem List 1. Fracture, intertrochanteric, right femur Qualifiers: Encounter type: initial encounter Fracture type: closed 2. Status post coronary artery stent placement Onset Date: 11/15/16 3. Abdominal aortic aneurysm 4. Moderate mitral regurgitation 5. Chronic kidney disease 6. History of myocardial infarction 7. Medical non-compliance Patient condition Improving Plan: initiate discharge plan This inpt stay is expected to cross 2 MNs from start of care Yes at 0702
--- NOTE | 2017-05-04 07:05 | Discharge Summary ---
Demographics Admit date: 05/01/17 Discharge date: 05/04/17 Discharge diagnoses Problem List 1. Fracture, intertrochanteric, right femur 2. Status post coronary artery stent placement Onset Date 11/15/16 3. Abdominal aortic aneurysm 4. Moderate mitral regurgitation 5. Chronic kidney disease 6. History of myocardial infarction 7. Medical non-compliance History of present illness History of present illness 86-year-old white male with multiple medical conditions including coronary artery disease, carotid artery stenosis, stage IV chronic kidney disease and abdominal aortic aneurysm was admitted through the emergency department today for RIGHT hip fracture. Patient states he fell on Monday without loss of consciousness and continued to have pain through yesterday. He did not want a running about his weekend but haven't come into the hospital so he waited until today. He denies any recent chest pain or shortness of breath with activity. Patient is admitted with plans for surgery today. The above per cardiology service Patient was admitted and underwent RIGHT hip fracture repair on the afternoon of May 01. Postoperative course was uncomplicated. On the second day of admission physical therapy and occupational therapy evaluated and began working with the patient. Patient had twice daily sessions with physical therapy the remainder of hospitalization. H and H was followed and trended down. Discharge hemoglobin was 9. On May 04 patient was discharged [facility] to continue rehab before returning home. Patient has a history of medical noncompliance. He has known coronary artery disease and with previous non-STEMI earlier this year. While platelet was supposed to be on dual antiplatelet therapy he stopped taking his Plavix a few months after discharge. He will remain on aspirin. Patient had also stopped taking his statin but atorvastatin will be continued at discharge. Rehab potential: Good Prognosis: Good Mental status: Average Medications Medications: Discharge meds are as noted. Follow up Follow up in office in: 2 WEEKS with: Castro Caldwell MD at 0705
[2017-05-04] MEDS ORDERED: NORCO 325 MG-51 TAB PO (07:07)
[2017-05-04] MEDS ORDERED: LIPITOR40 MG PO (07:07)
[2017-05-04 07:53] VITALS: BP 129/72; BP 149/73
[2017-05-04 08:08] VITALS: BP 149/73
[2017-05-04 10:19] VITALS: BP 149/73
== END 2017-05-04 10:20 | DRG 481 ==
LOC: ER 08:01 → 2ND 09:24 → ER 09:24 → 2ND 11:00
PROVIDERS: Emergency Medicine; Family Medicine; Orthopaedic Surgery
PROC: 0QH634Z Insertion of Internal Fixation Device into Right Upper Femur, Percutaneous Approach (ICD-10-PCS; principal; 2017-05-01 12:00)
DX: S72.141A Displaced intertrochanteric fracture of right femur, initial encounter for closed fracture (principal); N18.4 Chronic kidney disease, stage 4 (severe); Z95.1 Presence of aortocoronary bypass graft; I34.0 Nonrheumatic mitral (valve) insufficiency; W17.89XA Other fall from one level to another, initial encounter; I25.10 Atherosclerotic heart disease of native coronary artery without angina pectoris; I12.9 Hypertensive chronic kidney disease with stage 1 through stage 4 chronic kidney disease, or unspecified chronic kidney disease; Z87.891 Personal history of nicotine dependence; I71.4 Abdominal aortic aneurysm, without rupture; T45.526A Underdosing of antithrombotic drugs, initial encounter; Z91.128 Patient's intentional underdosing of medication regimen for other reason
CPT/HCPCS: C1713; J2405

== ENCOUNTER 2017-05-10 01:11 | Inpatient (IN) | payer MEDICARE, OTHER ==
[~2017-05-10] VITALS: Ht 180.3 cm; Wt 78.3 kg
[2017-05-10] VITALS (7 sets, daily range): BP systolic 114–138; BP diastolic 49–73
[~2017-05-10 01:11] MED LIST changes: +AMLO5TAB PO; +LIPITOR40 MG PO; +NORCO 325 MG-51 TAB PO
--- NOTE | 2017-05-10 01:40 | Emergency Room Report ---
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 STARTED ON FLAGYL RECENTLY. 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 N Clinical Suspician of Infection? N Mental Status: 1 - Regular (Normal Baseline) Sepsis Risk:Possible Sepsis Risk Have you (or family members/close friends) recently traveled outside the [place]? N If Yes, where/when: Have you had exposure to infectious disease within the past month? N TB? Other? Specify: Source patient, RN notes reviewed, family, EMS, long term records, old records Exam Limitations no limitations Comment pt with recent fall with fx femur and had orif and was at [facility] for rehab - tonight had reported t/c activity at [facility] and then was postictal- pt w/o chest pain but had recent stent in october - pt at baseline at this time - he also with recent dx of c diff and family reports had sz like activity in 04/06 and was at Cardiac Chest Pain Chest pain indicative of cardiac No Timing/Duration this evening Severity moderate ALLERGIES Coded Allergies: BANANAS (FOOD) (05/01/17) Home Medications Active Scripts Atorvastatin Calcium (Atorvastatin) 40 MG PO QHS #30 TAB Ref 11 Prov: 05/04/17 HYDROCODONE/ACETAMINOPHEN ([place] 5-325 Tablet) 1 TAB PO Q4HP PRN MODERATE TO SEVERE PAIN #120 TAB Prov: 05/04/17 Reported Medications ASPIRIN (Aspirin) 81 MG PO DAILY MULTIVITAMIN (Daily Multiple Vitamin) 1 TAB PO DAILY Amlodipine Besylate (Amlodipine) 5 MG PO DAILY History Medical History General CAD? No Angina: No [place]: No Hypertension? Yes Hyperlipidemia? No CHF? No DVT? No PE? No COPD? No Asthma? No Anemia? No GERD? No Gastric ulcers? No GI Bleed? No Hernia? No Thyroid Problems? No Hypothyroidism? No CVA? No Seizures? Yes Diabetes? No Renal Insuffiency? No End Stage Renal Disease? No UTI? No Stones? No BPH? No GB Disease: No Nephritic Syndrome? No Asplenia? No Hepatitis? No Sickle Cell Disease? No Arthritis? No Migraines? No Cataracts? No Glaucoma? No MRSA? No HIV? No TB? No Anxiety? No Depression? No Cancer? No More? No Immunization Hx DT/Tetanus Unknown Flu Refused Pneumonia Refuses Surgical Hx Previous Surgery?Y MASTOID CAROTID CARDIAC STENTS X3 Family History Family Hx Diabetes No CAD Yes Hypertension Yes Hyperlipidemia Yes Cancer No TB No Social History Smoking Hx Smoker: Former Smoker Tobacco: No Type Cigarettes Alcohol Alcohol: No Drugs none Review of Systems All Other Systems Reviewed and Negative Constitutional denies fever Eyes denies drainage ENT denies: ear discharge. Respiratory denies cough, denies shortness of breath Cardiovascular denies chest pain, denies syncope Gastrointestinal denies abdominal pain, denies diarrhea, denies vomiting Genitourinary denies: dysuria, frequency, hesitancy, hematuria. Musculoskeletal denies back pain, denies joint pain, denies joint swelling, denies neck pain Skin denies rash Psychiatric/Neurological see HPI, seizure Physical Exam Vital Signs Vital Signs Date Time Temp Pulse Resp B/P Pulse O2 O2 Flow FiO2 Ox Delivery Rate 05/10 0343 78 20 138/67 96 05/10 0308 14 05/10 0300 97.9 66 14 129/72 96 05/10 0221 66 20 116/63 96 05/10 0116 97.9 110 24 114/73 97 - WBC >12,000 or <4,000 or 10% bands? 2 or more SIRS Criteria Met? B/P:138/67 MAP:86 Creatinine >2.0? UA output<0.5ml/kg/hr for 2 hrs? Platelet count >100,000? Lactate >2.0mmol/1? INR >1.2 or PTT > than 60 sec? Evidence of Organ Dysfunction? Provider documented clinical suspician of infection? N Sepsis Criteria Count: 2 Sepsis Risk: Possible Sepsis Risk General Appearance no apparent distress Eye Exam Comment no acute changes Ear, Nose, Throat normal ENT inspection, no evid of tongue biting Neck limited range of motion Respiratory Status No: respiratory distress. Lung Sounds bilateral: decreased breath sounds. 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 No Results/Orders Laboratory Tests 05/10/17 0210: Sodium 135 L, Potassium 3.0 L, Chloride 103, Carbon Dioxide 22, BUN 56 H, Creatinine 3.0 H, Estimated Creat Clear 19 L, Estimated GFR (MDRD) 20, Glucose 116 H, Calcium 8.5, Total Bilirubin 0.9, AST 15, ALT 13, Alkaline Phosphatase 78, Creatine Kinase 48, CK-MB (CK-2) Rel Index 6.7 H, CK and CKMB Interp 3.2, Troponin I 0.61 H, Total Protein 6.3 L, Albumin 2.4 L, Globulin 3.9 H, Albumin/Globulin Ratio 0.6 L, WBC 9.9, RBC 3.02 L, Hgb 9.1 L, Hct 28.0 L, MCV 92.6, RDW 14.5, Plt Count 367, MPV 7.7, Gran % 81.0 H, Gran # 8.0, Lymphocytes % 10.1, Monocytes % 8.2, Eosinophils % 0.5, Basophils % 0.2, Lymphocytes # 1.0, Monocytes # 0.8, Eosinophils # 0.1, Basophils # 0.0, PUBS MCHC 32.4, MCH 30.0 Current Medication Orders Sig/David Start time Last Medication Dose Route Stop Time Status Admin Hydrocodone Bitart/ 1 TAB ONCE ONE 05/10 0300 DC 05/10 Acetaminophen PO 05/10 030 0308 Hydrocodone Bitart/ 0 .STK-MED ONE 05/10 025 DC Acetaminophen PO Hydrocodone Bitart/ 0 .STK-MED ONE 05/10 0255 DC Acetaminophen PO Sodium Chloride 10 ML PRN PRN 05/10 0130 AC IV 05/11 0120 Orders Procedure Date/time Status DIET-NOTHING BY MOUTH 05/10 B Active Decision to admit 05/10 0353 Active ANTI HIV (SUDS) 05/10 0340 Active ANTI HIV 05/10 034 Active HEPATITUS C VIRUS AB 05/10 034 Active HEPATITUS B SURFACE ANTIGEN 05/10 034 Active HEPATITUS B COR AB 05/10 034 Active ELECTROCARDIOGRAM REQUEST 05/[address] HEAD W/O CONTRAST 05/[address] SCAN REQ 05/10 012 Complete IV SALINE LOCK 05/10 012 Active URINALYSIS/COMPLETE 05/10 120 Active COMPLETE METABOLIC PANEL 05/10 120 Complete CBC WITH AUTO DIFF 05/10 120 Complete CARDIAC ENZYMES 05/10 120 Complete 12 LEAD EKG-LISA (INITIAL) 05/10 UNK Active CM/EKG CM/padder cushion Rhythm Normal Sinus Rhythm EKG compared w/(date of old), non-spec. ST/Twave chgs XRAY/CT/US XRAY/CT/US CT head CT interpretation by discussed w/radiologist Time results known: 030 CT Results normal/NAD Departure Departure Time of Disposition 0407 Disposition Still a Patient Clinical Impression Primary Impression: Non-STEMI (non-ST elevated myocardial infarction) Secondary Impressions: Anemia Qualifiers: Anemia type: unspecified type Qualified Code: D64.9 - Anemia, unspecified C. difficile colitis CRF (chronic renal failure) Qualifiers: Chronic kidney disease stage: unspecified stage Qualified Code: N18.9 - Chronic kidney disease, unspecified Seizure Condition STABLE ED Critical Care Critical Care No at 0409
--- NOTE | 2017-05-10 01:40 | Emergency Room Report ---
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 STARTED ON FLAGYL RECENTLY. 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 N Clinical Suspician of Infection? N Mental Status: 1 - Regular (Normal Baseline) Sepsis Risk:Possible Sepsis Risk Have you (or family members/close friends) recently traveled outside the [place]? N If Yes, where/when: Have you had exposure to infectious disease within the past month? N TB? Other? Specify: Source patient, RN notes reviewed, family, EMS, halfway records, old records Exam Limitations no limitations Comment pt with recent fall with fx femur and had orif and was at [facility] for rehab - tonight had reported t/c activity at [facility] and then was postictal- pt w/o chest pain but had recent stent in october - pt at baseline at this time - he also with recent dx of c diff and family reports had sz like activity in 04/06 and was at Cardiac Chest Pain Chest pain indicative of cardiac No Timing/Duration this evening Severity moderate ALLERGIES Coded Allergies: BANANAS (FOOD) (05/01/17) Home Medications Active Scripts Atorvastatin Calcium (Atorvastatin) 40 MG PO QHS #30 TAB Ref 11 Prov: 05/04/17 HYDROCODONE/ACETAMINOPHEN ([place] 5-325 Tablet) 1 TAB PO Q4HP PRN MODERATE TO SEVERE PAIN #120 TAB Prov: 05/04/17 Reported Medications ASPIRIN (Aspirin) 81 MG PO DAILY MULTIVITAMIN (Daily Multiple Vitamin) 1 TAB PO DAILY Amlodipine Besylate (Amlodipine) 5 MG PO DAILY History Medical History General CAD? No Angina: No [place]: No Hypertension? Yes Hyperlipidemia? No CHF? No DVT? No PE? No COPD? No Asthma? No Anemia? No GERD? No Gastric ulcers? No GI Bleed? No Hernia? No Thyroid Problems? No Hypothyroidism? No CVA? No Seizures? Yes Diabetes? No Renal Insuffiency? No End Stage Renal Disease? No UTI? No Stones? No BPH? No GB Disease: No Nephritic Syndrome? No Asplenia? No Hepatitis? No Sickle Cell Disease? No Arthritis? No Migraines? No Cataracts? No Glaucoma? No MRSA? No HIV? No TB? No Anxiety? No Depression? No Cancer? No More? No Immunization Hx DT/Tetanus Unknown Flu Refused Pneumonia Refuses Surgical Hx Previous Surgery?Y MASTOID CAROTID CARDIAC STENTS X3 Family History Family Hx Diabetes No CAD Yes Hypertension Yes Hyperlipidemia Yes Cancer No TB No Social History Smoking Hx Smoker: Former Smoker Tobacco: No Type Cigarettes Alcohol Alcohol: No Drugs none Review of Systems All Other Systems Reviewed and Negative Constitutional denies fever Eyes denies drainage ENT denies: ear discharge. Respiratory denies cough, denies shortness of breath Cardiovascular denies chest pain, denies syncope Gastrointestinal denies abdominal pain, denies diarrhea, denies vomiting Genitourinary denies: dysuria, frequency, hesitancy, hematuria. Musculoskeletal denies back pain, denies joint pain, denies joint swelling, denies neck pain Skin denies rash Psychiatric/Neurological see HPI, seizure Physical Exam Vital Signs Vital Signs Date Time Temp Pulse Resp B/P Pulse O2 O2 Flow FiO2 Ox Delivery Rate 05/10 0343 78 20 138/67 96 05/10 0308 14 05/10 0300 97.9 66 14 129/72 96 05/10 0221 66 20 116/63 96 05/10 0116 97.9 110 24 114/73 97 - WBC >12,000 or <4,000 or 10% bands? 2 or more SIRS Criteria Met? B/P:138/67 MAP:86 Creatinine >2.0? UA output<0.5ml/kg/hr for 2 hrs? Platelet count >100,000? Lactate >2.0mmol/1? INR >1.2 or PTT > than 60 sec? Evidence of Organ Dysfunction? Provider documented clinical suspician of infection? N Sepsis Criteria Count: 2 Sepsis Risk: Possible Sepsis Risk General Appearance no apparent distress Eye Exam Comment no acute changes Ear, Nose, Throat normal ENT inspection, no evid of tongue biting Neck limited range of motion Respiratory Status No: respiratory distress. Lung Sounds bilateral: decreased breath sounds. 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 No Results/Orders Laboratory Tests 05/10/17 0210: Sodium 135 L, Potassium 3.0 L, Chloride 103, Carbon Dioxide 22, BUN 56 H, Creatinine 3.0 H, Estimated Creat Clear 19 L, Estimated GFR (MDRD) 20, Glucose 116 H, Calcium 8.5, Total Bilirubin 0.9, AST 15, ALT 13, Alkaline Phosphatase 78, Creatine Kinase 48, CK-MB (CK-2) Rel Index 6.7 H, CK and CKMB Interp 3.2, Troponin I 0.61 H, Total Protein 6.3 L, Albumin 2.4 L, Globulin 3.9 H, Albumin/Globulin Ratio 0.6 L, WBC 9.9, RBC 3.02 L, Hgb 9.1 L, Hct 28.0 L, MCV 92.6, RDW 14.5, Plt Count 367, MPV 7.7, Gran % 81.0 H, Gran # 8.0, Lymphocytes % 10.1, Monocytes % 8.2, Eosinophils % 0.5, Basophils % 0.2, Lymphocytes # 1.0, Monocytes # 0.8, Eosinophils # 0.1, Basophils # 0.0, PUBS MCHC 32.4, MCH 30.0 Current Medication Orders Sig/David Start time Last Medication Dose Route Stop Time Status Admin Hydrocodone Bitart/ 1 TAB ONCE ONE 05/10 0300 DC 05/10 Acetaminophen PO 05/10 030 0308 Hydrocodone Bitart/ 0 .STK-MED ONE 05/10 025 DC Acetaminophen PO Hydrocodone Bitart/ 0 .STK-MED ONE 05/10 0255 DC Acetaminophen PO Sodium Chloride 10 ML PRN PRN 05/10 0130 AC IV 05/11 0120 Orders Procedure Date/time Status DIET-NOTHING BY MOUTH 05/10 B Active Decision to admit 05/10 0353 Active ANTI HIV (SUDS) 05/10 0340 Active ANTI HIV 05/10 034 Active HEPATITUS C VIRUS AB 05/10 034 Active HEPATITUS B SURFACE ANTIGEN 05/10 034 Active HEPATITUS B COR AB 05/10 034 Active ELECTROCARDIOGRAM REQUEST 05/[address] HEAD W/O CONTRAST 05/[address] SCAN REQ 05/10 012 Complete IV SALINE LOCK 05/10 012 Active URINALYSIS/COMPLETE 05/10 120 Active COMPLETE METABOLIC PANEL 05/10 120 Complete CBC WITH AUTO DIFF 05/10 120 Complete CARDIAC ENZYMES 05/10 120 Complete 12 LEAD EKG-LISA (INITIAL) 05/10 UNK Active CM/EKG CM/mica sizer Rhythm Normal Sinus Rhythm EKG compared w/(date of old), non-spec. ST/Twave chgs XRAY/CT/US XRAY/CT/US CT head CT interpretation by discussed w/radiologist Time results known: 030 CT Results normal/NAD Departure Departure Time of Disposition 0407 Disposition Still a Patient Clinical Impression Primary Impression: Non-STEMI (non-ST elevated myocardial infarction) Secondary Impressions: Anemia Qualifiers: Anemia type: unspecified type Qualified Code: D64.9 - Anemia, unspecified C. difficile colitis CRF (chronic renal failure) Qualifiers: Chronic kidney disease stage: unspecified stage Qualified Code: N18.9 - Chronic kidney disease, unspecified Seizure Condition STABLE ED Critical Care Critical Care No at 0409
[2017-05-10 02:44] LABS: HEMOGLOBIN 9.1 g/dL (14.1-18.0); LYMPH % 10.1 % (10-50)
--- NOTE | 2017-05-10 05:32 | RADIOLOGY REPORT PS360 ---
CT HEAD W/O CONTRAST HISTORY: POSSIBLE SZ ORDERING PHYSICIAN: Flavio Sexton MD PATIENT AGE: 86 years COMPARISON: 09/19/2010 TECHNIQUE: Axial images obtained without contrast. Brain and bone windows reviewed. FINDINGS: No midline shift, mass effect, intracranial hemorrhage, hydrocephalus, or extra-axial fluid collection is evident. There is atrophy with diffuse periventricular and subcortical hypoattenuation consistent with ischemic gliotic change from microvascular disease. 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 Mild mucosal thickening paranasal sinuses. IMPRESSION: 1. Atrophy with chronic ischemic changes. 2. No acute intracranial findings. 3. Left mastoid sinus disease. Suspect prior left mastoid surgery with opacification of the left mastoid sinus and left middle ear
[2017-05-10] MEDS ORDERED: FLAGYL 500MG.500 MG PO (05:43)
[2017-05-10] MEDS ORDERED: CARVEDILOL3.125 M1 PO (06:09)
[2017-05-10] MEDS ORDERED: PLAVIX75 M1 PO (06:09)
--- NOTE | 2017-05-10 07:18 | PHARMACY CLINIC NOTE ---
Patient Demographics Patient Demographics Admission date: 05/10/17 Date: 05/10/17 Time: 0718 Allergies Coded Allergies: BANANAS (FOOD) (05/01/17) HEIGHT- FT: 5 IN: 11.00 K.274 VTE General Information Labs: Laboratory Tests 05/10 021 Hematology Hgb (14.1 - 18.0 g/dL) 9.1 L Hct (42.0 - 52.0 %) 28.0 L Plt Count (142 - 424 K/mm3) 367 Disclaimer The following section includes nursing documentation that has been pulled in for pharmacy review. Patient's VTE score: 2 Patient's VTE Risk: VERY LOW RISK Clinical trial participant? No VTE prophylaxis NQF [id number] VTE prophylaxis ordered? Yes Type of prophylaxis/treatment: NATALIIA Charles at 0718
--- NOTE | 2017-05-10 07:27 | HISTORY AND PHYSICAL REPORT ---
Demographics: Admit date: 05/10/17 Chief complaint: Confusion PRIMARY DIAGNOSIS: NON STEMI Allergies: Coded Allergies: BANANAS (FOOD) (05/01/17) Cantaloupe (05/10/17) watermelon (05/10/17) History of present illness: History of present illness: 86-year-old male who is a current resident at [facility] rehabilitating from recent RIGHT hip fracture was brought to the emergency department early this morning after the patient was found confused. There was some concern over an unwitnessed seizure and it was believed he may be post ictal. He was brought to the emergency department for evaluation. The patient cannot provide any additional information. He does confirm he was taken to the [facility] approximately a month ago when he had what he describes as a syncopal event. Patient was evaluated at and released the same day. On his workup in the emergency department he was found to have an elevated troponin. He has been admitted for cardiology consultation. Patient has recently been diagnosed with C. difficile contamination in his stool and is currently on Flagyl. Patient has known coronary artery disease with non-STEMI and subsequent stenting in October of this year. Drug-eluting stents were used but patient discontinued his Plavix after a few months due to noncompliance. Past medical history: Family HX Diabetes No CAD Yes Hypertension Yes Hyperlipidemia Yes Cancer No TB No Immunization HX DT/Tetanus Unknown Flu Refused Pneumonia Refuses TB Test in last year Yes Result Negative General CAD? No Angina: No [place]: No Hypertension? Yes Hyperlipidemia? No CHF? No DVT? No PE? No COPD? No Asthma? No Anemia? No GERD? No Gastric ulcers? No GI Bleed? No Hernia? No Thyroid Problems? No Hypothyroidism? No CVA? No Seizures? Yes Diabetes? No Renal Insuffiency? No UTI? No Stones? No BPH? No GB Disease: No Nephritic Syndrome? No Asplenia? No Hepatitis? No Sickle Cell Disease? No Arthritis? No Migraines? No Cataracts? No Glaucoma? No MRSA? No HIV? No TB? No Anxiety? No Depression? No Cancer? No More? No Past Surgical HX Previous Surgery?Y MASTOID CAROTID CARDIAC STENTS X3 Current home meds: Active Scripts Atorvastatin Calcium (Atorvastatin) 40 MG PO QHS #30 TAB Ref 11 Prov: 05/04/17 HYDROCODONE/ACETAMINOPHEN ([place] 5-325 Tablet) 1 TAB PO Q4HP PRN MODERATE TO SEVERE PAIN #120 TAB Prov: 05/04/17 Reported Medications METRONIDAZOLE (Metronidazole) 500 MG PO TID ASPIRIN (Aspirin) 81 MG PO DAILY MULTIVITAMIN (Daily Multiple Vitamin) 1 TAB PO DAILY Amlodipine Besylate (Amlodipine) 5 MG PO DAILY Social Hx: Smoking HX Tobacco No Type Cigarettes Packs/day < 1 PACK Are you/the child exposed to second-hand smoke: No Alcohol Alcohol: No Hx of Drug Use Drug Use? No Patien't marital status is Patient's support system is good Review of systems: Constitutional No: chills, diaphoresis, fever. Respiratory no symptoms reported. Cardiovascular No chest pain, No palpitations Gastrointestinal/Abdominal no symptoms reported Genitourinary no symptoms reported. Musculoskeletal joint pain (RIGHT hip). Neurological Yes: no symptoms reported. Exam: Lab data for last 24 hours: Laboratory Tests 05/10/17 0435: HIV 1&2 Antibody NEGATIVE 05/10/17 0210: Triglycerides 57, Cholesterol 98, LDL Cholesterol 50.6, VLDL Cholesterol 11.4, HDL Cholesterol 36.0 L 05/10/17 0210: Sodium 135 L, Potassium 3.0 L, Chloride 103, Carbon Dioxide 22, BUN 56 H, Creatinine 3.0 H, Estimated Creat Clear 19 L, Estimated GFR (MDRD) 20, Glucose 116 H, Calcium 8.5, Total Bilirubin 0.9, AST 15, ALT 13, Alkaline Phosphatase 78, Creatine Kinase 48, CK-MB (CK-2) Rel Index 6.7 H, CK and CKMB Interp 3.2, Troponin I 0.61 H, Total Protein 6.3 L, Albumin 2.4 L, Globulin 3.9 H, Albumin/Globulin Ratio 0.6 L, WBC 9.9, RBC 3.02 L, Hgb 9.1 L, Hct 28.0 L, MCV 92.6, RDW 14.5, Plt Count 367, MPV 7.7, Gran % 81.0 H, Gran # 8.0, Lymphocytes % 10.1, Monocytes % 8.2, Eosinophils % 0.5, Basophils % 0.2, Lymphocytes # 1.0, Monocytes # 0.8, Eosinophils # 0.1, Basophils # 0.0, PUBS MCHC 32.4, MCH 30.0 Admission vital signs: 1ST Vital Signs Result Date Time Pulse Ox 97 05/10 116 B/P 114/73 05/10 116 Temp 97.9 05/10 0116 Pulse 110 05/10 0116 Resp 24 05/10 116 O2 Delivery ROOM AIR 05/10 0455 Additional information: Patient appears tired. 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 Oropharynx is moist. Heart has a regular rate and rhythm with a 3/6 systolic murmur heard at the apex. Lungs are clear to auscultation. Abdomen is soft, nontender with mild distention and active bowel sounds. RIGHT hip incision is clean dry and intact. Patient is neurovascularly intact in the RIGHT foot. He has no focal neurologic deficits. Plan: Problem List 1. Status post coronary artery stent placement Onset Date 11/15/16 2. C. difficile colitis 3. Anemia 4. CRF (chronic renal failure) 5. Medical non-compliance 6. History of myocardial infarction 7. Non-ST elevation myocardial infarction (NSTEMI) 8. Chronic kidney disease Plan: 1. Patient has been admitted for cardiology consultation. I have given the patient loading dose of Plavix. His atorvastatin has been ordered. Due to his noncompliance medical management is likely the best course of action. I do not believe he has had obstruction of his stent as he is symptom-free. 2. Continue by mouth Flagyl
--- NOTE | 2017-05-10 09:06 | CONSULT NOTE ---
Standard Demographics Patient Demo Date of Consultation: 05/10/17 Referring Provider: Flavio Sexton MD Reason for Consultation: NSTEMI PRIMARY DIAGNOSIS: NON STEMI Problem list Problem list: 1. HTN A. Echocardiogram, 11/14/16, EF 40-45% with moderate to severe MR B. Echo, 05/01/2017, Mildly enlarged left atrium, normal left ventricular size, mild concentric left ventricular hypertrophy, visually estimated ejection fraction 50% with segmental wall motion abnormality described above, grade 2 diastolic dysfunction seen with tissue Doppler evidence of raised left atrial pressure. Thickened and calcified aortic valve without Doppler evidence of significant aortic stenosis, or aortic insufficiency. Moderate mitral and mild tricuspid regurgitation. No significant pericardial effusion noted. 2. JESÚS A. Right CEA, about [id number] B. Carotid ultrasound, 11/14/16, 50-69% LICA stenosis, less than 20% RCA stenosis 3. Remote tobacco use, stopped about 40 yrs ago 4. Hyperlipidemia A. LDL 146, 10/2016 5. CKD, stage 4 with Cr 3.0 and GFR 20 6. Abdominal aortic aneurysm, 5 cm, aorta ultrasound 10/2016 7. Coronary artery disease A. Non-ST elevation myocardial infarction, 11/15/16 B. Cardiac catheterization 11/15/2016 showing distal 50-60 percent stenosis of the LEFT main, proximal 50-60 percent stenosis of the left anterior descending, mid vessel 40-50 percent stenosis, very distal sequential 80 percent stenosis with the left anterior descending wrapping around the apex. Nondominant circumflex gives rise to a large ramus with a proximal 30-40 percent nonflow limiting stenosis while the true circumflex has 30 percent mid vessel stenosis. RIGHT coronary artery is large dominant vessel with critical 90 percent ostial stenosis followed by complex 60-70 percent stenosis followed by additional complex long 90 percent stenosis both proximal and distal to the RV marginal followed by the additional complex 90 percent stenosis and distal 40 percent stenosis. LEFT atrial ejection fraction 55 percent. C. 3 drug-eluting stents placed to the RIGHT coronary artery, 11/15/2016. D. Patient initially placed on dual antiplatelet therapy but patient discontinued Plavix and is only taking an aspirin daily 8. Peripheral arterial disease A. RIGHT renal artery stenosis of 40-50% proximally, nonflow limiting. LEFT renal artery singular with a severe proximal complex long 80-90% stenosis. 9. Right hip Fx and fall, s/p surgical correction, 04/2017 History of present illness: History of present illness: 86-year-old male who is a current resident [place] [facility] [place] recent RIGHT hip fracture was brought to the emergency department early this morning after the patient was found confused. There was some concern over an unwitnessed seizure and it was believed he may be post ictal. He was brought to the emergency department for evaluation. The patient cannot provide any additional information. He does confirm he was taken to the [facility] approximately a month ago when he had what he describes as a syncopal event. Patient was evaluated at and released the same day. On his workup in the emergency department he was found to have an elevated troponin. He has been admitted for cardiology consultation. Patient has recently been diagnosed with C. difficile contamination in his stool and is currently on Flagyl. Patient has known coronary artery disease with non-STEMI and subsequent stenting in October of this year. Drug-eluting stents were used but patient discontinued his Plavix after a few months due to noncompliance. The above per Dr. Sexton Pt is difficult historian due to hard of hearing. Main complaint is increased right hip and leg pain over the last 48 hrs and just not feeling well. Denies any chest pain specifically but states he is "tired of feeling bad...can't you just give me a shot and let me go." Past Medical History: General: Hypertension Yes CVA No Seizures Yes TB No COPD No Asthma No Diabetes No Angina No AR No Hyperlipidemia No Urinary No Cancer No Rheumatic H.D. No Ulcers No MRSA No GB Disease No Past Surgical HX: Previous Surgery?Y MASTOID CAROTID CARDIAC STENTS X3 Allergies Coded Allergies: BANANAS (FOOD) (05/01/17) Home medications: Active Scripts Atorvastatin Calcium (Atorvastatin) 40 MG PO QHS #30 TAB Ref 11 Prov: 05/04/17 HYDROCODONE/ACETAMINOPHEN ([place] 5-325 Tablet) 1 TAB PO Q4HP PRN MODERATE TO SEVERE PAIN #120 TAB Prov: 05/04/17 Reported Medications METRONIDAZOLE (Metronidazole) 500 MG PO TID ASPIRIN (Aspirin) 81 MG PO DAILY MULTIVITAMIN (Daily Multiple Vitamin) 1 TAB PO DAILY Amlodipine Besylate (Amlodipine) 5 MG PO DAILY Current Medications: Current Medications Atorvastatin Calcium 40 MG QHS PO Amlodipine Besylate 5 MG DAILY PO Enoxaparin Sodium 80 MG DAILY SC Levetiracetam 500 MG BID PO Polyethylene Glycol 17 GM DAILY PO Sodium Chloride 10 ML PRN PRN IV Clopidogrel Bisulfate 300 MG ONCE ONE PO (DC) Metronidazole 500 MG Q8 PO Acetaminophen 650 MG Q4HP PRN PO Hydrocodone Bitart/Acetaminophen 1 TAB Q4HP PRN PO Ondansetron HCl 4 MG Q6HP PRN IV Sodium Chloride 1,000 ML .Q20H IV Aspirin 0 .STK-MED ONE .ROUTE (DC) Aspirin 324 MG ONCE ONE PO (DC) Hydrocodone Bitart/Acetaminophen 1 TAB ONCE ONE PO (DC) Hydrocodone Bitart/Acetaminophen 0 .STK-MED ONE PO (DC) Hydrocodone Bitart/Acetaminophen 0 .STK-MED ONE PO (DC) Sodium Chloride 10 ML PRN PRN IV Immunization HX DT/Tetanus Unknown Flu Refused Pneumonia Refuses TB Test in last year Yes Result Negative Family history Family HX Family Hx Insignificant No Diabetes No CAD Yes Hypertension Yes Hyperlipidemia Yes Cancer No TB No Social Hx: Smoking HX Tobacco No Type Cigarettes Packs/day < 1 PACK Are you/the child exposed to second-hand smoke: No Alcohol Alcohol: No Hx of Drug Use Drug Use? No Patien't marital status is Review of systems: Constitutional weakness. Respiratory SOB with excertion. Cardiovascular No no symptoms reported Gastrointestinal/Abdominal No no symptoms reported Genitourinary No: no symptoms reported. Musculoskeletal see HPI. Neurological Yes: seizure disorder. Exam: Admission Vital Signs: 1ST Vital Signs Result Date Time Pulse Ox 97 05/10 0116 B/P 114/73 05/10 0116 Temp 97.9 05/10 0116 Pulse 110 05/10 0116 Resp 24 05/10 0116 O2 Delivery ROOM AIR 05/10 0455 Last Vital Signs: Vital Signs Result Date Time Pulse Ox 99 05/10 0742 B/P 133/55 05/10 0742 Temp 97.1 05/10 0742 Pulse 71 05/10 0742 Resp 20 05/10 0742 O2 Delivery ROOM AIR 05/10 0513 Exam General appearance: awake, no acute distress Neck: carotid bruit Cardiovascular: regular rate & rhythm, murmur Respiratory: Fair effort without rales or wheezing appreciated. ABD: soft, no tenderness Extremities: moves all, no peripheral edema Neuro: awakens to verbal but drifts to sleep easily. Laboratory data: Laboratory Tests 05/10/17 0435: HIV 1&2 Antibody NEGATIVE 05/10/17 0210: Triglycerides 57, Cholesterol 98, LDL Cholesterol 50.6, VLDL Cholesterol 11.4, HDL Cholesterol 36.0 L 05/10/17 0210: Sodium 135 L, Potassium 3.0 L, Chloride 103, Carbon Dioxide 22, BUN 56 H, Creatinine 3.0 H, Estimated Creat Clear 19 L, Estimated GFR (MDRD) 20, Glucose 116 H, Calcium 8.5, Total Bilirubin 0.9, AST 15, ALT 13, Alkaline Phosphatase 78, Creatine Kinase 48, CK-MB (CK-2) Rel Index 6.7 H, CK and CKMB Interp 3.2, Troponin I 0.61 H, Total Protein 6.3 L, Albumin 2.4 L, Globulin 3.9 H, Albumin/Globulin Ratio 0.6 L, WBC 9.9, RBC 3.02 L, Hgb 9.1 L, Hct 28.0 L, MCV 92.6, RDW 14.5, Plt Count 367, MPV 7.7, Gran % 81.0 H, Gran # 8.0, Lymphocytes % 10.1, Monocytes % 8.2, Eosinophils % 0.5, Basophils % 0.2, Lymphocytes # 1.0, Monocytes # 0.8, Eosinophils # 0.1, Basophils # 0.0, PUBS MCHC 32.4, MCH 30.0 Plan: Assessment: 1. Elevated troponin consistent with NSTEMI. Will repeat cardiac enzymes but plan medical therapy due to confusion and CKD stage 4 with declining health. Add plavix and continue ASA and statin. No ELINOR due to CKD. Previously stopped beta marie due to fatigue. Only continued norvasc for BP due to no side effects. 2. CAD with recent PANCHITO in 10/2016 with noncompliance with DAPT after 2-3 months 3. Confusion 4. Hypokalemia 5. CKD, stage 4 with Cr 3.0 and GFR 19 6. Cardiac murmurs due to Aortic calcification without stenosis and Moderate MR by echo this month 7. Recent traumatic hip fx with surgical correction Recommendations: Discussed with Dr. Figueroa. See above. at 1200
[2017-05-11 00:02] VITALS: BP 132/65
[2017-05-11 03:56] VITALS: BP 135/57
[2017-05-11 06:57] LABS: LYMPH # 1.1 K/mm3 (0.7-4.5); LYMPH % 13.8 % (10-50)
[2017-05-11 07:25] VITALS: BP 136/57
--- NOTE | 2017-05-11 07:50 | ACUTE CARE PROGRESS NOTE (QUA) ---
Progress Notes Subjective Date 05/11/17 Time 0748 Note Patient denies complaints. He denies chest pain or shortness of breath. Nursing staff reports patient slept in a chair overnight. He is in no distress. Lungs are clear. Heart has a regular rate and rhythm with previously mentioned murmur. Abdomen is soft and nontender with active bowel sounds. Discharge back to [facility] today to continue rehabilitation for his RIGHT hip fracture. New Medications are carvedilol and Plavix. Patient will also be given potassium Objective Findings Last VS-Temp:97.7 B/P:136/57 Pulse:66 Resp:18 SaO2:97 ROOM AIR Last weight lbs:172 oz:9 K.[id number] Method:Bed Scales Assessment/Plan Problem List 1. Status post coronary artery stent placement Onset Date: 11/15/16 2. C. difficile colitis 3. Anemia Qualifiers: Anemia type: unspecified type Qualified Code: D64.9 - Anemia, unspecified 4. CRF (chronic renal failure) Qualifiers: Chronic kidney disease stage: unspecified stage Qualified Code: N18.9 - Chronic kidney disease, unspecified 5. Medical non-compliance 6. History of myocardial infarction 7. Non-ST elevation myocardial infarction (NSTEMI) 8. Chronic kidney disease Patient condition Improving This inpt stay is expected to cross 2 MNs from start of care Yes at 0749
--- NOTE | 2017-05-11 07:51 | ACUTE CARE PROGRESS NOTE (QUA) ---
Progress Notes Subjective Date 05/11/17 Time 0749 Note 86-year-old white male in bed in no acute distress. Denies any chest pain, pressure or tightness. Objective Findings Last VS-Temp:97.7 B/P:136/57 Pulse:66 Resp:18 SaO2:97 ROOM AIR Last weight lbs:172 oz:9 K.274 Method:Bed Scales Exam General appearance: alert, awake, no acute distress Cardiovascular: regular rate & rhythm, murmur Respiratory: clear to auscultation Extremities: moves all, no peripheral edema Neuro: alert, non-focal Reviewed: medications, vital signs, lab results Assessment/Plan Problem List 1. Status post coronary artery stent placement Onset Date: 11/15/16 2. C. difficile colitis 3. Anemia Qualifiers: Anemia type: unspecified type Qualified Code: D64.9 - Anemia, unspecified 4. CRF (chronic renal failure) Qualifiers: Chronic kidney disease stage: unspecified stage Qualified Code: N18.9 - Chronic kidney disease, unspecified 5. Medical non-compliance 6. History of myocardial infarction 7. Non-ST elevation myocardial infarction (NSTEMI) Assessment/Plan: Medical therapy recommended due to multiple comorbidities. Plavix has been restarted in conjunction with continuing his aspirin therapy. 8. Chronic kidney disease Patient condition Guarded Plan: continue current care, agree with discharge or transfer back to nursing facility. This inpt stay is expected to cross 2 MNs from start of care Yes at 0751
--- NOTE | 2017-05-11 07:51 | Discharge Summary ---
Demographics Admit date: 05/10/17 Discharge date: 05/11/17 Discharge diagnoses Problem List 1. Non-ST elevation myocardial infarction (NSTEMI) 2. Status post coronary artery stent placement Onset Date 11/15/16 3. C. difficile colitis 4. Anemia 5. CRF (chronic renal failure) 6. Medical non-compliance 7. History of myocardial infarction 8. Chronic kidney disease History of present illness History of present illness 86-year-old male who is a current resident at [facility] rehabilitating from recent RIGHT hip fracture was brought to the emergency department early this morning after the patient was found confused. There was some concern over an unwitnessed seizure and it was believed he may be post ictal. He was brought to the emergency department for evaluation. The patient cannot provide any additional information. He does confirm he was taken to the [facility] approximately a month ago when he had what he describes as a syncopal event. Patient was evaluated at and released the same day. On his workup in the emergency department he was found to have an elevated troponin. He has been admitted for cardiology consultation. Patient has recently been diagnosed with C. difficile contamination in his stool and is currently on Flagyl. Patient has known coronary artery disease with non-STEMI and subsequent stenting in October of this year. Drug-eluting stents were used but patient discontinued his Plavix after a few months due to noncompliance. The above per Dr. Sexton Pt is difficult historian due to hard of hearing. Main complaint is increased right hip and leg pain over the last 48 hrs and just not feeling well. Denies any chest pain specifically but states he is "tired of feeling bad...can't you just give me a shot and let me go." Patient was admitted. Serial troponins were performed both of which were abnormal with troponin being 0.9. Cardiology was consult to. They felt it was best for medical management of this patient due to underlying comorbidities. Patient was started on Plavix and carvedilol. Renal function will prohibited use of ELINOR inhibitor. Patient was continued on Flagyl while an inpatient because of his C. difficile. Patient remained stable over his 24-hour admission. He was discharged back to [facility] on the . He will need to continue rehabilitation for his recent RIGHT hip fracture. Rehab potential: Fair Prognosis: Fair Mental status: Average Medications Medications: Discharge meds are as noted. Follow up Follow up in office in: one month with: Flavio Sexton MD at 0756
[2017-05-11] MEDS ORDERED: KLOR-CON M2020 ME1 PO (07:52)
[2017-05-11 08:41] VITALS: BP 136/57
[2017-05-11 08:46] LABS: HBsAg Screen Negative (Negative); HIV Screen 4th Generation wRfx Non Reactive (Non Reactive); Hep B Core Ab, Tot Negative (Negative); Hep C Virus Ab <0.1 (0.0-0.9)
[2017-05-11 10:57] VITALS: BP 136/57
== END 2017-05-11 10:45 | DRG 281 ==
LOC: ER 01:11 → 2ND 03:59
PROVIDERS: Emergency Medicine
DX: I21.3 ST elevation (STEMI) myocardial infarction of unspecified site (principal); A04.7 Enterocolitis due to Clostridium difficile; D64.9 Anemia, unspecified; I10 Essential (primary) hypertension; I25.2 Old myocardial infarction; Z72.0 Tobacco use; Z95.5 Presence of coronary angioplasty implant and graft; I12.9 Hypertensive chronic kidney disease with stage 1 through stage 4 chronic kidney disease, or unspecified chronic kidney disease; N18.9 Chronic kidney disease, unspecified; Z91.19 Patient's noncompliance with other medical treatment and regimen
CPT/HCPCS: G0432

== ENCOUNTER → 2017-05-19 | Outpatient (CLI) | payer MEDICARE, OTHER ==
--- NOTE | 2017-05-19 12:30 | RADIOLOGY REPORT PS360 ---
HIP RT 2-3V W/PELVIS IF PERFOR HISTORY: Follow-up ORIF/fracture POST OP A ORDERING PHYSICIAN: Castro Caldwell MD PATIENT AGE: 86 years FINDINGS: Femoral decompression screw and short intramedullary roland remains in place stabilizing the comminuted right humeral neck fracture which remains in good alignment. There is some medial displacement of the lesser trochanteric fracture fragment. Skin clips are once again noted. No evidence of dislocation. No significant callus formation. IMPRESSION: Status post ORIF right intertrochanteric fracture with good alignment
== END ==
LOC: RAD 09:43
DX: Z48.89 Encounter for other specified surgical aftercare (principal); M25.551 Pain in right hip

== ENCOUNTER 2017-05-27 22:40 | Emergency (ER) | payer MEDICARE, OTHER ==
[~2017-05-27] VITALS: Ht 180.3 cm; Wt 74.8 kg
[~2017-05-27 22:40] MED LIST changes: +CARVEDILOL3.125 M1 PO; +FLAGYL 500MG.500 MG PO; +KLOR-CON M2020 ME1 PO
--- NOTE | 2017-05-27 23:28 | Emergency Room Report ---
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 N Clinical Suspician of Infection? N Mental Status: 1 - Regular (Normal Baseline) Sepsis Risk:Low Sepsis Risk Have you (or family members/close friends) recently traveled outside the [place]? N If Yes, where/when: Have you had exposure to infectious disease within the past month? N TB? Other? Specify: Source patient, RN notes reviewed, family, EMS, assisted records, old records Exam Limitations no limitations Comment wm who was sent from f with change in mental status with confusion has been on new med- buspar- no trauma/rash/fever/ no other neuro sx Cardiac Chest Pain Chest pain indicative of cardiac No Timing/Duration this evening Severity moderate ALLERGIES Coded Allergies: BANANAS (FOOD) (05/01/17) Cantaloupe (05/10/17) watermelon (05/10/17) Home Medications Active Scripts Atorvastatin Calcium (Atorvastatin) 40 MG PO QHS #30 TAB Ref 11 Prov: 05/04/17 HYDROCODONE/ACETAMINOPHEN ([place] 5-325 Tablet) 1 TAB PO Q4HP PRN MODERATE TO SEVERE PAIN #120 TAB Prov: 05/04/17 Carvedilol 3.125 MG PO BID #60 TAB Ref 2 Prov: 05/10/17 Clopidogrel Bisulfate (Plavix) 75 MG PO DAILY #30 TAB Ref 5 Prov: 05/10/17 Potassium Chloride (Klor-Con M20) 20 MEQ PO BID #60 TER Ref 2 Prov: 05/11/17 Reported Medications METRONIDAZOLE (Metronidazole) 500 MG PO TID ASPIRIN (Aspirin) 81 MG PO DAILY MULTIVITAMIN (Daily Multiple Vitamin) 1 TAB PO DAILY Amlodipine Besylate (Amlodipine) 5 MG PO DAILY History Medical History General CAD? No Angina: No AR: No Hypertension? Yes Hyperlipidemia? No CHF? No DVT? No PE? No COPD? No Asthma? No Anemia? No GERD? No Gastric ulcers? No GI Bleed? No Hernia? No Thyroid Problems? No Hypothyroidism? No CVA? No Seizures? Yes Diabetes? No Renal Insuffiency? No End Stage Renal Disease? No UTI? No Stones? No BPH? No GB Disease: No Nephritic Syndrome? No Asplenia? No Hepatitis? No Sickle Cell Disease? No Arthritis? No Migraines? No Cataracts? No Glaucoma? No MRSA? No HIV? No TB? No Anxiety? No Depression? No Cancer? No More? No Immunization Hx DT/Tetanus Unknown Flu Refused Pneumonia Refuses Surgical Hx Previous Surgery?Y MASTOID CAROTID CARDIAC STENTS X3 Family History Family Hx Diabetes No CAD Yes Hypertension Yes Hyperlipidemia Yes Cancer No TB No Social History Smoking Hx Smoker: Never Smoker Tobacco: No Type Cigarettes Packs/day < 1 Pack Alcohol Alcohol: No Drugs none Review of Systems All Other Systems Reviewed and Negative Constitutional see HPI, denies fever, other Eyes denies drainage ENT denies: ear discharge, epistaxis, throat pain. Respiratory denies cough, denies shortness of breath, denies wheezing Cardiovascular denies chest pain, denies palpitations, denies syncope Gastrointestinal denies abdominal pain, denies diarrhea, denies vomiting Genitourinary denies: dysuria, frequency, hesitancy, hematuria. Musculoskeletal denies back pain, denies joint pain, denies joint swelling, denies neck pain Skin denies rash Psychiatric/Neurological see HPI, denies seizure, other Physical Exam Vital Signs Vital Signs Date Time Temp Pulse Resp B/P Pulse O2 O2 Flow FiO2 Ox Delivery Rate 05/28 0136 79 20 146/62 96 05/28 0053 77 20 142/59 96 05/27 2331 71 20 146/67 97 05/27 2245 97.9 72 20 128/46 96 - WBC >12,000 or <4,000 or 10% bands? 2 or more SIRS Criteria Met? B/P:146/62 MAP:73 Creatinine >2.0? UA output<0.5ml/kg/hr for 2 hrs? Platelet count >100,000? Lactate >2.0mmol/1? INR >1.2 or PTT > than 60 sec? Evidence of Organ Dysfunction? Provider documented clinical suspician of infection? N Sepsis Criteria Count: 1 Sepsis Risk: Low Sepsis Risk General Appearance no apparent distress Eye Exam - bilateral eye PERRL, bilateral eye EOMI Ear, Nose, Throat normal ENT inspection, no tongue biting Neck non-tender Respiratory Status No: respiratory distress. Lung Sounds bilateral: decreased breath sounds. 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 No Results/Orders Laboratory Tests 05/28/17 0020: Sodium 139, Potassium 4.8, Chloride 108 H, Carbon Dioxide 20 L, BUN 39 H, Creatinine 2.5 H, Estimated Creat Clear 22 L, Estimated GFR (MDRD) 25, Glucose 107 H, Calcium 8.7, Total Bilirubin 0.5, AST 27, ALT 14, Alkaline Phosphatase 108, Creatine Kinase 28 L, CK-MB (CK-2) Rel Index 3.6, CK and CKMB Interp 1.0, Troponin I 0.59 H, Total Protein 6.5, Albumin 2.6 L, Globulin 3.9 H, Albumin/ Globulin Ratio 0.7 L, WBC 7.3, RBC 2.99 L, Hgb 9.1 L, Hct 28.9 L, MCV 96.7, RDW 15.5, Plt Count 189, MPV 9.2, Gran % 67.0, Gran # 4.9, Lymphocytes % 18.1, Monocytes % 9.1, Eosinophils % 4.8, Basophils % 1.0, Lymphocytes # 1.3, Monocytes # 0.7, Eosinophils # 0.4, Basophils # 0.1, PUBS MCHC 31.5 L, MCH 30.5 Current Medication Orders Sig/David Start time Last Medication Dose Route Stop Time Status Admin Sodium Chloride 10 ML PRN PRN 05/27 2330 AC IV 05/28 2317 Orders Procedure Date/time Status ELECTROCARDIOGRAM REQUEST 05/28 143 Active IV SALINE LOCK 05/27 2317 Active URINALYSIS/COMPLETE 05/27 2317 Active COMPLETE METABOLIC PANEL 05/27 2317 Complete CBC WITH AUTO DIFF 05/27 2317 Complete CARDIAC ENZYMES 05/27 2317 Complete CM/EKG 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 ST/Twave chgs Departure Departure Time of Disposition 0204 Disposition DC Home or Self Care(routine) Clinical Impression Primary Impression: Acute delirium Secondary Impressions: Anemia Qualifiers: Anemia type: unspecified type Qualified Code: D64.9 - Anemia, unspecified Elevated troponin Renal insufficiency Condition STABLE Referrals Ameena BAUTISTA,Nicanor Nava (Family) discussed with dr schwartz Patient Instructions Delirium Additional Instructions stop buspar and resume prev treatment Discharge Counseling Counseled pt/family regarding diagnosis, test results, follow up needs ED Critical Care Critical Care No at 0211
--- NOTE | 2017-05-27 23:28 | Emergency Room Report ---
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 N Clinical Suspician of Infection? N Mental Status: 1 - Regular (Normal Baseline) Sepsis Risk:Low Sepsis Risk Have you (or family members/close friends) recently traveled outside the [place]? N If Yes, where/when: Have you had exposure to infectious disease within the past month? N TB? Other? Specify: Source patient, RN notes reviewed, family, EMS, alf records, old records Exam Limitations no limitations Comment wm who was sent from f with change in mental status with confusion has been on new med- buspar- no trauma/rash/fever/ no other neuro sx Cardiac Chest Pain Chest pain indicative of cardiac No Timing/Duration this evening Severity moderate ALLERGIES Coded Allergies: BANANAS (FOOD) (05/01/17) Cantaloupe (05/10/17) watermelon (05/10/17) Home Medications Active Scripts Atorvastatin Calcium (Atorvastatin) 40 MG PO QHS #30 TAB Ref 11 Prov: 05/04/17 HYDROCODONE/ACETAMINOPHEN (Friend 5-325 Tablet) 1 TAB PO Q4HP PRN MODERATE TO SEVERE PAIN #120 TAB Prov: 05/04/17 Carvedilol 3.125 MG PO BID #60 TAB Ref 2 Prov: 05/10/17 Clopidogrel Bisulfate (Plavix) 75 MG PO DAILY #30 TAB Ref 5 Prov: 05/10/17 Potassium Chloride (Klor-Con M20) 20 MEQ PO BID #60 TER Ref 2 Prov: 05/11/17 Reported Medications METRONIDAZOLE (Metronidazole) 500 MG PO TID ASPIRIN (Aspirin) 81 MG PO DAILY MULTIVITAMIN (Daily Multiple Vitamin) 1 TAB PO DAILY Amlodipine Besylate (Amlodipine) 5 MG PO DAILY History Medical History General CAD? No Angina: No [place]: No Hypertension? Yes Hyperlipidemia? No CHF? No DVT? No PE? No COPD? No Asthma? No Anemia? No GERD? No Gastric ulcers? No GI Bleed? No Hernia? No Thyroid Problems? No Hypothyroidism? No CVA? No Seizures? Yes Diabetes? No Renal Insuffiency? No End Stage Renal Disease? No UTI? No Stones? No BPH? No GB Disease: No Nephritic Syndrome? No Asplenia? No Hepatitis? No Sickle Cell Disease? No Arthritis? No Migraines? No Cataracts? No Glaucoma? No MRSA? No HIV? No TB? No Anxiety? No Depression? No Cancer? No More? No Immunization Hx DT/Tetanus Unknown Flu Refused Pneumonia Refuses Surgical Hx Previous Surgery?Y MASTOID CAROTID CARDIAC STENTS X3 Family History Family Hx Diabetes No CAD Yes Hypertension Yes Hyperlipidemia Yes Cancer No TB No Social History Smoking Hx Smoker: Never Smoker Tobacco: No Type Cigarettes Packs/day < 1 Pack Alcohol Alcohol: No Drugs none Review of Systems All Other Systems Reviewed and Negative Constitutional see HPI, denies fever, other Eyes denies drainage ENT denies: ear discharge, epistaxis, throat pain. Respiratory denies cough, denies shortness of breath, denies wheezing Cardiovascular denies chest pain, denies palpitations, denies syncope Gastrointestinal denies abdominal pain, denies diarrhea, denies vomiting Genitourinary denies: dysuria, frequency, hesitancy, hematuria. Musculoskeletal denies back pain, denies joint pain, denies joint swelling, denies neck pain Skin denies rash Psychiatric/Neurological see HPI, denies seizure, other Physical Exam Vital Signs Vital Signs Date Time Temp Pulse Resp B/P Pulse O2 O2 Flow FiO2 Ox Delivery Rate 05/28 0136 79 20 146/62 96 05/28 0053 77 20 142/59 96 05/27 2331 71 20 146/67 97 05/27 2245 97.9 72 20 128/46 96 - WBC >12,000 or <4,000 or 10% bands? 2 or more SIRS Criteria Met? B/P:146/62 MAP:73 Creatinine >2.0? UA output<0.5ml/kg/hr for 2 hrs? Platelet count >100,000? Lactate >2.0mmol/1? INR >1.2 or PTT > than 60 sec? Evidence of Organ Dysfunction? Provider documented clinical suspician of infection? N Sepsis Criteria Count: 1 Sepsis Risk: Low Sepsis Risk General Appearance no apparent distress Eye Exam - bilateral eye PERRL, bilateral eye EOMI Ear, Nose, Throat normal ENT inspection, no tongue biting Neck non-tender Respiratory Status No: respiratory distress. Lung Sounds bilateral: decreased breath sounds. 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 No Results/Orders Laboratory Tests 05/28/17 0020: Sodium 139, Potassium 4.8, Chloride 108 H, Carbon Dioxide 20 L, BUN 39 H, Creatinine 2.5 H, Estimated Creat Clear 22 L, Estimated GFR (MDRD) 25, Glucose 107 H, Calcium 8.7, Total Bilirubin 0.5, AST 27, ALT 14, Alkaline Phosphatase 108, Creatine Kinase 28 L, CK-MB (CK-2) Rel Index 3.6, CK and CKMB Interp 1.0, Troponin I 0.59 H, Total Protein 6.5, Albumin 2.6 L, Globulin 3.9 H, Albumin/ Globulin Ratio 0.7 L, WBC 7.3, RBC 2.99 L, Hgb 9.1 L, Hct 28.9 L, MCV 96.7, RDW 15.5, Plt Count 189, MPV 9.2, Gran % 67.0, Gran # 4.9, Lymphocytes % 18.1, Monocytes % 9.1, Eosinophils % 4.8, Basophils % 1.0, Lymphocytes # 1.3, Monocytes # 0.7, Eosinophils # 0.4, Basophils # 0.1, PUBS MCHC 31.5 L, MCH 30.5 Current Medication Orders Sig/David Start time Last Medication Dose Route Stop Time Status Admin Sodium Chloride 10 ML PRN PRN 05/27 2330 AC IV 05/28 2317 Orders Procedure Date/time Status ELECTROCARDIOGRAM REQUEST 05/28 143 Active IV SALINE LOCK 05/27 2317 Active URINALYSIS/COMPLETE 05/27 2317 Active COMPLETE METABOLIC PANEL 05/27 2317 Complete CBC WITH AUTO DIFF 05/27 2317 Complete CARDIAC ENZYMES 05/27 2317 Complete CM/EKG CM/green chain marker Rhythm Normal Sinus Rhythm EKG compared w/(date of old), non-spec. ST/Twave chgs Departure Departure Time of Disposition 0204 Disposition DC Home or Self Care(routine) Clinical Impression Primary Impression: Acute delirium Secondary Impressions: Anemia Qualifiers: Anemia type: unspecified type Qualified Code: D64.9 - Anemia, unspecified Elevated troponin Renal insufficiency Condition STABLE Referrals Ameena BAUTISTA,Nicanor Nava (Family) discussed with dr schwartz Patient Instructions Delirium Additional Instructions stop buspar and resume prev treatment Discharge Counseling Counseled pt/family regarding diagnosis, test results, follow up needs ED Critical Care Critical Care No at 0211
[2017-05-28 00:33] LABS: HEMOGLOBIN 9.1 g/dL (14.1-18.0); LYMPH # 1.3 K/mm3 (0.7-4.5); LYMPH % 18.1 % (10-50)
[2017-05-28 02:49] VITALS: BP 141/63
--- OUTSIDE RECORDS SUMMARY | 2017-06-02 17:07 | External Medical Summary Rpt | CCD ---
Author Author , MARIA Organization MARIA Address Unknown Phone [email or web address] Purpose Continuity of Care Document - 03-29-2017 through 2016 Results Labs Lab Lab Date Result Refere Interp Status Commen Order Detail nces retati t Range on Urinalysis dipstick W Reflex Microscopic panel in Urine (05-01-2017 09:30) Bacteri 2+ O complet a 017 ed [Presen 09:30 ce] in Urine sedimen t by Light microsc opy Erythro 3-5 0 complet cytes 017 ed [Presen 09:30 ce] in Urine sedimen t by Light microsc opy Epithel OCC OCC complet ial 017 ed cells.s 09:30 quamous [Presen ce] in Urine sedimen t by Microsc opy high power field Urinalysis dipstick W Reflex Microscopic panel in Urine (05-01-2017 09:30) Appeara CLEAR CLEAR complet nce of 017 ed Urine 09:30 Bilirub NEGATIV NEG complet in 017 E ed [Presen 09:30 ce] in Urine by Test strip Erythro 2+ NEG Abnorma complet cytes 017 l ed [Presen 09:30 ce] in Urine Color YELLOW YELLOW complet of 017 ed Urine 09:30 Ketones NEGATIV NEG complet 017 E ed [Presen 09:30 ce] in Urine by Automat ed test strip Mucus NEGATIV NEG complet [Presen 017 E ed ce] in 09:30 Urine sedimen t by Light microsc opy Nitrite NEGATIV NEG complet 017 E ed [Presen 09:30 ce] in Urine by Test strip Urobili 0.2 NEG complet nogen 017 ed [Presen 09:30 ce] in Urine by Test strip CK SerPl-cCnc (03-30-2017 15:26) CK 77 U/L 49-320 complet SerPl-c 017 ed Cnc 15:26 NT-proBNP SerPl-mCnc (03-29-2017 10:53) NT-proB 4620 0-1799 complet POLICE RESERVES COMMANDER 017 pg/mL ed SerPl-m 10:53 Cnc Lipase SerPl-cCnc (03-29-2017 10:53) Lipase 28 U/L 19-63 complet SerPl-c 017 ed Cnc 10:53
--- OUTSIDE RECORDS SUMMARY | 2017-06-02 17:07 | External Medical Summary Rpt | Continuity of Care Document ---
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
--- OUTSIDE RECORDS SUMMARY | 2017-06-02 17:07 | External Medical Summary Rpt | Continuity of Care Document ---
Author Author Organization Address Unknown Phone Unavailable Care Team Providers Care Analog Ic Design Architect Name Role Phone , Unavailable Unavailable EMS Current Medications Section EMS Allergies and Adverse Reactions EMS Past Medical History Medications Administered Section EMS Procedures Performed EMS Vital Signs EMS Patient Care Report Narrative EC-[address] [facility] for a patient that is unresponsive. Upon arrival EC-2 found an 86 year old male sitting up in the bed. Nursing staff on scene stated that the patient had seizure like activity non stop for two to three minutes and then went unresponsive. Anatomy And Physiology Instructor Christiano asked the nursing staff how long the patient has been unresponsive and they stated he still is unresponsive while EMS was present. Patient is a resident of this facility receiving manager long term care care. Patient has a history of a recent right femur fracture, AAA, SD and mitral regurgitation. Patient was alert and orientated times four, gcs of 15, PERRLA, skin was pink, warm and dry, lung sounds were clear and equal bilaterally, abdomen was soft and non tender and all four extremities were unremarkable. Patient was placed on EMS stretcher via draw sheet, placed in a position of comfort and secured with seat belts. Patient was placed in ambulance and 4 lead, 12 lead and base lines vitals were all obtained. IV was established for possible medication and fluid administration. 4 lead showed a sinus rhythm and 12 lead showed a sinus rhythm with LVH. No SD was suspected. Patient was transported without incident to [facility] ER. Upon arrival, patient was placed on ER facility bed via draw sheet and secured with side rails up. Care, report and paperwork were all transferred to Sharmin Hull RN. All times in this report are approximate. End report. LorrieAlvarado NRKeanu Patient was transported by EMS in an emergent situation due to possible sepsis that required possible hospital admission. [facility] and a higher level of care was required.
--- OUTSIDE RECORDS SUMMARY | 2017-06-02 17:07 | External Medical Summary Rpt | CCD ---
Demographics Preferred Language Kinyarwanda Marital Status Unknown Restorationism Affiliation Unknown Race Unknown Ethnic Group Unknown Author Author , VIOLETTA SHIPLEY Address Unknown Phone Immunization No patient found.
--- OUTSIDE RECORDS SUMMARY | 2017-06-02 17:07 | External Medical Summary Rpt | Continuity of Care Document ---
Author Author Organization Address Unknown Phone Unavailable Care Team Providers Care Network Developer Name Role Phone , Unavailable Unavailable EMS Current Medications Section EMS Allergies and Adverse Reactions EMS Past Medical History Medications Administered Section EMS Procedures Performed EMS Vital Signs EMS Patient Care Report Narrative EMS DISPATCHED TO RESPOND TO RESIDENCE OF MALE WHO COULDN'T GET UP OUT OF BED UPON ARRIVAL CURTIS CO BONER MEAT ON SCENE WITH PATIENT PATIENT LAYING IN [...] CARE AND REPORT OVER TO STAFF AT [facility]
--- OUTSIDE RECORDS SUMMARY | 2017-06-02 17:07 | External Medical Summary Rpt | CCD ---
Demographics Preferred Language Lithuanian Marital Status Unknown Gnosticist Affiliation Unknown Race Unknown Ethnic Group Unknown Author Author , VIOLETTA SHIPLEY Address Unknown Phone Immunization No patient found.
--- OUTSIDE RECORDS SUMMARY | 2017-06-02 17:07 | External Medical Summary Rpt | Continuity of Care Document ---
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
--- OUTSIDE RECORDS SUMMARY | 2017-06-02 17:07 | External Medical Summary Rpt | Continuity of Care Document ---
Author Author Organization Address Unknown Phone Unavailable Care Team Providers Care Speech Therapist Technician Name Role Phone , Unavailable Unavailable EMS Current Medications Section EMS Allergies and Adverse Reactions EMS Past Medical History Medications Administered Section EMS Procedures Performed EMS Vital Signs EMS Patient Care Report Narrative EMS DISPATCHED TO RESPOND TO RESIDENCE OF MALE WHO COULDN'T GET UP OUT OF BED UPON ARRIVAL CURTIS CO DETONATOR MAKER ON SCENE WITH PATIENT PATIENT LAYING IN [...] CARE AND REPORT OVER TO STAFF AT [facility]
--- OUTSIDE RECORDS SUMMARY | 2017-06-02 17:07 | External Medical Summary Rpt | CCD ---
Author Author , MARIA Organization MARIA Address Unknown Phone [email or web address] Purpose Continuity of Care Document - 03-29-2017 [...] SerPl-mCnc (03-29-2017 10:53) NT-proB 4620 0-1799 complet DEPUTY EDITOR IN CHIEF 017 pg/mL ed SerPl-m 10:53 Cnc Lipase SerPl-cCnc (03-29-2017 10:53) Lipase 28 U/L 19-63 complet SerPl-c 017 ed Cnc 10:53
--- OUTSIDE RECORDS SUMMARY | 2017-06-02 17:07 | External Medical Summary Rpt | Continuity of Care Document ---
Author Author Organization Address Unknown Phone Unavailable Care Team Providers Care Structural Steel Fitter Name Role Phone , Unavailable Unavailable EMS Current Medications Section EMS Allergies and Adverse Reactions EMS Past Medical History Medications Administered Section EMS Procedures Performed EMS Vital Signs EMS Patient Care Report Narrative EMS DISPATCHED TO RESPOND TO RESIDENCE OF MALE WHO COULDN'T GET UP OUT OF BED UPON ARRIVAL CURTIS CO CALL CENTER SUPPORT REPRESENTATIVE ON SCENE WITH PATIENT PATIENT LAYING IN [...] CARE AND REPORT OVER TO STAFF AT [facility]
--- OUTSIDE RECORDS SUMMARY | 2017-06-02 17:07 | External Medical Summary Rpt | Continuity of Care Document ---
Author Author Organization Address Unknown Phone Unavailable Care Team Providers Care Lead Pharmacy Technician Name Role Phone , Unavailable Unavailable EMS Current Medications Section EMS Allergies and Adverse Reactions EMS Past Medical History Medications Administered Section EMS Procedures Performed EMS Vital Signs EMS Patient Care Report Narrative EMS DISPATCHED TO RESPOND TO RESIDENCE OF MALE WHO COULDN'T GET UP OUT OF BED UPON ARRIVAL CURTIS CO FENCE LABORER ON SCENE WITH PATIENT PATIENT LAYING IN [...] CARE AND REPORT OVER TO STAFF AT [facility]
--- OUTSIDE RECORDS SUMMARY | 2017-06-02 17:07 | External Medical Summary Rpt | Continuity of Care Document ---
Author Author Organization Address Unknown Phone Unavailable Care Team Providers Care Sheet Metal Operator Name Role Phone , Unavailable Unavailable EMS Current Medications Section EMS Allergies and Adverse Reactions EMS Past Medical History Medications Administered Section EMS Procedures Performed EMS Vital Signs EMS Patient Care Report Narrative EMS DISPATCHED TO RESPOND TO RESIDENCE OF MALE WHO COULDN'T GET UP OUT OF BED UPON ARRIVAL CURTIS CO PUMPING STATION SUPERVISOR ON SCENE WITH PATIENT PATIENT LAYING IN [...] CARE AND REPORT OVER TO STAFF AT [facility]
--- OUTSIDE RECORDS SUMMARY | 2017-06-02 17:07 | External Medical Summary Rpt | Continuity of Care Document ---
Author Author Organization Address Unknown Phone Unavailable Care Team Providers Care Manager School Name Role Phone , Unavailable Unavailable EMS Current Medications Section EMS Allergies and Adverse Reactions EMS Past Medical History Medications Administered Section EMS Procedures Performed EMS Vital Signs EMS Patient Care Report Narrative EMS DISPATCHED TO RESPOND TO RESIDENCE OF MALE WHO COULDN'T GET UP OUT OF BED UPON ARRIVAL CURTIS CO CHARGE POSTER ON SCENE WITH PATIENT PATIENT LAYING IN [...] REPORT OVER TO STAFF AT [facility]
--- OUTSIDE RECORDS SUMMARY | 2017-06-02 17:07 | External Medical Summary Rpt | Continuity of Care Document ---
Author Author Organization Address Unknown Phone Unavailable Care Team Providers Care Aquatic Habitat Biologist Name Role Phone , Unavailable Unavailable EMS Current Medications Section EMS Allergies and Adverse Reactions EMS Past Medical History Medications Administered Section EMS Procedures Performed EMS Vital Signs EMS Patient Care Report Narrative EC-2 was dispatched to [facility] for a patient that is unresponsive. Upon arrival EC-2 found an 86 year old male sitting up in the bed. Nursing staff on scene stated that the patient had seizure like activity non stop for two to three minutes and then went unresponsive. Assistant Professor Of Drama Christiano asked the nursing staff how long the patient has been unresponsive and they stated he still is unresponsive while EMS was present. 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 Patient has a history of a recent right femur fracture, AAA, IA and mitral regurgitation. Patient was alert and [...] showed a sinus rhythm with LVH. No IA was suspected. Patient was transported without incident to [facility] ER. Upon arrival, patient was placed [...] possible hospital admission. Tests were unavailable at half-way and a higher level of care was required.
--- OUTSIDE RECORDS SUMMARY | 2017-06-02 17:08 | External Medical Summary Rpt ---
Author Author ARMENYON Elissa, [employer] Address Unknown Phone Unavailable Results Basic metabolic panel in Blood Observa Value Referen Units Interpr Notes Date tion ce etation Range Urea 7 - 18 mg/dL High No Sep 21 nitrogen informati 2017 6:30 [Mass/vol on in AM ume] in source Serum or data Plasma Calcium 8.5 - mg/dL Low No Sep 21 [Mass/vol 10.1 informati 2017 6:30 ume] in on in AM Serum or source Plasma data Chloride 98 - 107 mmoL/L Normal No Sep 21 [Moles/vo informati 2017 6:30 lume] in on in AM Serum or source Plasma data Carbon 21.0 - mmoL/L Low No Sep 21 dioxide, 32.0 informati 2017 6:30 total on in AM [Moles/vo source lume] in data Serum or Plasma Creatinin 0.70 - mg/dL High No Sep 21 e 1.30 informati 2017 6:30 [Mass/vol on in AM ume] in source Serum or data Plasma Creatinin 50 - 200 ML/MIN Low No Sep 21 e renal informati 2017 6:30 clearance on in AM source predicted data by Cockcroft -Gault formula Estimated >60 ML/MIN No REFERENCE Sep 21 informati RANGE: 2017 6:30 glomerula on in >60 AM r source ML/MIN/1. filtratio data 73 SQUARE n rate METERSIf (GF this patient is -A merican, then multiply theresult by 1.210. Glucose 74 - 106 mg/dL Normal No Sep 21 [Mass/vol informati 2017 6:30 ume] in on in AM Serum or source Plasma data Potassium 3.5 - 5.1 mmoL/L Low alert Sep 21 2017 6:30 [Moles/vo CRITICAL AM lume] in RESULTS Serum or Plasma RESU LTS CALLED TO: RAHUL 05/11/17 0707 Nasreen Forrest e Sodium 136 - 145 mmoL/L Normal No Sep 21 [Moles/vo informati 2017 6:30 lume] in on in AM Serum or source Plasma data CBC W Auto Differential panel in Blood Observa Value Referen Units Interpr Notes Date tion ce etation Range Basophils 0 - 0.2 K/MM3 Normal No Sep 21 informati 2017 6:30 [#/volume on in AM ] in source Blood by data Automated count Basophils 0.1 - 2.0 % Normal No Sep 21 /100 informati 2017 6:30 leukocyte on in AM s in source Blood by data Automated count Eosinophi 0.0 - 0.4 K/mm3 Normal No Sep 21 ls informati 2017 6:30 [#/volume on in AM ] in source Blood by data Automated count Eosinophi 0.1 - % Normal No Sep 21 ls/100 12.0 informati 2017 6:30 leukocyte on in AM s in source Blood by data Automated count Granulocy 1.3 - 8.0 K/mm3 Normal No Sep 21 jefe informati 2017 6:30 [#/volume on in AM ] in source Blood by data Automated count Granulocy 37.0 - % Normal No Sep 21 jefe/100 80.0 informati 2017 6:30 leukocyte on in AM s in source Blood by data Automated count Hematocri 42.0 - % Low No Sep 21 t [Volume 52.0 informati 2017 6:30 on in AM Fraction] source of Blood data Hemoglobi 14.1 - g/dL Low No Sep 21 n 18.0 informati 2017 6:30 [Mass/vol on in AM ume] in source Blood data Lymphocyt 0.7 - 4.5 K/mm3 Normal No Sep 21 es informati 2017 6:30 [#/volume on in AM ] in source Unspecifi data ed specimen by Automated count Lymphocyt 10 - 50 % Normal No Sep 21 es informati 2017 6:30 [#/volume on in AM ] in source Unspecifi data ed specimen by Automated count Erythrocy 27 - 31.2 pg Normal No Sep 21 te mean informati 2017 6:30 corpuscul on in AM ar source hemoglobi data n [Entitic mass] Erythrocy 31.8 - g/dl Normal No Sep 21 te mean 35.4 informati 2016 6:30 corpuscul on in AM ar source hemoglobi data n concentra tion [Mass/vol ume] by Automated count Erythrocy 82.2 - fl Normal No Sep 21 te mean 97.8 informati 2016 6:30 corpuscul on in AM ar volume source [Entitic data volume] by Automated count Monocytes 0.1 - 1.0 K/mm3 Normal No Sep 21 informati 2016 6:30 [#/volume on in AM ] in source Blood by data Automated count Monocytes 1.7 - 9.3 % Normal No Sep 21 /100 informati 2017 6:30 leukocyte on in AM s in source Blood by data Automated count Platelet 7.4 - fl Normal No Sep 21 mean 10.4 informati 2017 6:30 volume on in AM [Entitic source volume] data in Blood by Automated count Platelets 142 - 424 K/mm3 Normal No Sep 21 informati 2017 6:30 [#/volume on in AM ] in source Blood data Erythrocy 4.6 - 6.2 M/mm3 Low No Sep 21 jefe informati 2016 6:30 [#/volume on in AM ] in source Amniotic data fluid Erythrocy 11.5 - % Normal No Sep 21 te 17.5 informati 2016 6:30 distribut on in AM ion width source [Entitic data volume] by Automated count Leukocyte 4.8 - K/MM3 Normal No Sep 21 s 10.8 informati 2016 6:30 [#/volume on in AM ] in source Blood data Cardiac enzymes Observa Value Referen Units Interpr Notes Date tion ce etation Range Creatine 0 - 4.0 U/L High No Sep 20 kinase.MB alert informati 2017 8:50 /Creatine on in AM source kinase.to data natalie [Ratio] in Serum or Plasma Creatine 0.0 - 3.6 ng/mL High No Sep 20 kinase.MB informati 2017 8:50 on in AM [Mass/vol source ume] in data Serum or Plasma Creatine 39 - 308 U/L Normal No Sep 20 kinase informati 2017 8:50 [Enzymati on in AM c source activity/ data volume] in Serum or Plasma Troponin 0.00 - ng/mL High Sep 20 I.cardiac 0.06 2016 8:50 CRITICAL AM [Mass/vol RESULTS ume] in Serum or RESU Plasma LTS CALLED TO: BRIGHT 05/10/17 0937 Jacinta Elo> 0.5 IS CONSISTEN T WITH MYOCARDIA L ISCHEMIA OR INFARCTIO N Lipid 1996 panel in Serum or Plasma Observa Value Referen Units Interpr Notes Date tion ce etation Range COMMENTS TO SANITARIAN AIDE: PER MT PROTOCOL Cholester < 200 mg/dL No No Sep 20 ol informati informati 2017 2:10 [Moles/vo on in on in AM lume] in source source Unspecifi data data ed specimen Cholester 40 - 60 MG/DL Low No Sep 20 ol in HDL informati 2017 2:10 on in AM [Mass/vol source ume] in data Serum or Plasma Cholester 0 - 130 mg/dL Normal No Sep 20 ol in LDL informati 2017 2:10 on in AM [Mass/vol source ume] in data Serum or Plasma by calculati on Triglycer 30 - 200 mg/dL Normal No Sep 20 jaja informati 2017 2:10 [Moles/vo on in AM lume] in source Serum or data Plasma Cholester 0 - 40 No Normal No Sep 20 ol in informati informati 2017 2:10 VLDL on in on in AM [Mass/vol source source ume] in data data Serum or Plasma Cardiac enzymes Observa Value Referen Units Interpr Notes Date tion ce etation Range Creatine 0 - 4.0 U/L High No Sep 20 kinase.MB informati 2017 2:10 /Creatine on in AM source kinase.to data natalie [Ratio] in Serum or Plasma Creatine 0.0 - 3.6 ng/mL Normal No Sep 20 kinase.MB informati 2017 2:10 on in AM [Mass/vol source ume] in data Serum or Plasma Creatine 39 - 308 U/L Normal No Sep 20 kinase informati 2017 2:10 [Enzymati on in AM c source activity/ data volume] in Serum or Plasma Troponin 0.00 - ng/mL High Sep 20 I.cardiac 0.06 2016 2:10 CRITICAL AM [Mass/vol RESULTS ume] in Serum or RESU Plasma LTS CALLED TO: ADDIS Rose 05/10/17 0320 Harshil,V ictoria> 0.5 IS CONSISTEN T WITH MYOCARDIA L ISCHEMIA OR INFARCTIO N Comprehensive metabolic 2000 panel in Serum or Plasma Observa Value Referen Units Interpr Notes Date tion ce etation Range Albumin/G 1.1 - 1.8 No Low No Sep 20 lobulin informati informati 2017 2:10 [Mass on in on in AM ratio] in source source Serum or data data Plasma Albumin 3.4 - 5.0 gm/dL Low No Sep 20 [Mass/vol informati 2017 2:10 ume] in on in AM Serum or source Plasma data Alkaline 46 - 116 U/L Normal No Sep 20 phosphata informati 2017 2:10 se on in AM [Enzymati source c data activity/ volume] in Serum or Plasma Bilirubin 0.2 - 1.0 mg/dL Normal No Sep 20 .total informati 2017 2:10 [Mass/vol on in AM ume] in source Serum or data Plasma Urea 7 - 18 mg/dL High No Sep 20 nitrogen informati 2017 2:10 [Mass/vol on in AM ume] in source Serum or data Plasma Calcium 8.5 - mg/dL Normal No Sep 20 [Mass/vol 10.1 informati 2017 2:10 ume] in on in AM Serum or source Plasma data Chloride 98 - 107 mmoL/L Normal No Sep 20 [Moles/vo informati 2017 2:10 lume] in on in AM Serum or source Plasma data Carbon 21.0 - mmoL/L Normal No Sep 20 dioxide, 32.0 informati 2017 2:10 total on in AM [Moles/vo source lume] in data Serum or Plasma Creatinin 0.70 - mg/dL High No Sep 20 e 1.30 informati 2017 2:10 [Mass/vol on in AM ume] in source Serum or data Plasma Creatinin 50 - 200 ML/MIN Low No Sep 20 e renal informati 2017 2:10 clearance on in AM source predicted data by Cockcroft -Gault formula Estimated >60 ML/MIN No REFERENCE Sep 20 informati RANGE: 2016 2:10 glomerula on in >60 AM r source ML/MIN/1. filtratio data 73 SQUARE n rate METERSIf (GF this patient is -A merican, then multiply theresult by 1.210. Globulin 1.3 - 3.2 gm/dL High No Sep 20 [Mass/vol informati 2017 2:10 ume] in on in AM Serum source data Glucose 74 - 106 mg/dL High No Sep 20 [Mass/vol informati 2017 2:10 ume] in on in AM Serum or source Plasma data Potassium 3.5 - 5.1 mmoL/L Low Sep 20 2016 2:10 [Moles/vo CRITICAL AM lume] in RESULTS Serum or Plasma RESU LTS CALLED TO: ADDIS Rose 05/10/17 0320 Rita Chua ictoria Sodium 136 - 145 mmoL/L Low No Sep 20 [Moles/vo informati 2017 2:10 lume] in on in AM Serum or source Plasma data Aspartate 15 - 37 U/L Normal No Sep 20 informati 2016 2:10 aminotran on in AM sferase source [Enzymati data c activity/ volume] in Serum or Plasma Alanine 12 - 78 U/L Normal No Sep 20 aminotran 2016 2:10 sferase on in AM [Enzymati source c data activity/ volume] in Serum or Plasma Protein 6.4 - 8.2 gm/dL Low No Sep 20 [Mass/vol informati 2016 2:10 ume] in on in AM Serum or source Plasma data CBC W Auto Differential panel in Blood Observa Value Referen Units Interpr Notes Date tion ce etation Range Basophils 0 - 0.2 K/MM3 Normal No Sep 20 informati 2016 2:10 [#/volume on in AM ] in source Blood by data Automated count Basophils 0.1 - 2.0 % Normal No Sep 20 /100 informati 2016 2:10 leukocyte on in AM s in source Blood by data Automated count Eosinophi 0.0 - 0.4 K/mm3 Normal No Sep 20 ls informati 2016 2:10 [#/volume on in AM ] in source Blood by data Automated count Eosinophi 0.1 - % Normal No Sep 20 ls/100 12.0 informati 2016 2:10 leukocyte on in AM s in source Blood by data Automated count Granulocy 1.3 - 8.0 K/mm3 Normal No Sep 20 jefe informati 2016 2:10 [#/volume on in AM ] in source Blood by data Automated count Granulocy 37.0 - % High No Sep 20 jefe/100 80.0 informati 2017 2:10 leukocyte on in AM s in source Blood by data Automated count Hematocri 42.0 - % Low No Sep 20 t [Volume 52.0 informati 2017 2:10 on in AM Fraction] source of Blood data Hemoglobi 14.1 - g/dL Low No Sep 20 n 18.0 informati 2017 2:10 [Mass/vol on in AM ume] in source Blood data Lymphocyt 0.7 - 4.5 K/mm3 Normal No Sep 20 es informati 2017 2:10 [#/volume on in AM ] in source Unspecifi data ed specimen by Automated count Lymphocyt 10 - 50 % Normal No Sep 20 es informati 2017 2:10 [#/volume on in AM ] in source Unspecifi data ed specimen by Automated count Erythrocy 27 - 31.2 pg Normal No Sep 20 te mean informati 2017 2:10 corpuscul on in AM ar source hemoglobi data n [Entitic mass] Erythrocy 31.8 - g/dl Normal No Sep 20 te mean 35.4 informati 2017 2:10 corpuscul on in AM ar source hemoglobi data n concentra tion [Mass/vol ume] by Automated count Erythrocy 82.2 - fl Normal No Sep 20 te mean 97.8 informati 2017 2:10 corpuscul on in AM ar volume source [Entitic data volume] by Automated count Monocytes 0.1 - 1.0 K/mm3 Normal No Sep 20 informati 2017 2:10 [#/volume on in AM ] in source Blood by data Automated count Monocytes 1.7 - 9.3 % Normal No Sep 20 /100 informati 2017 2:10 leukocyte on in AM s in source Blood by data Automated count Platelet 7.4 - fl Normal No Sep 20 mean 10.4 informati 2017 2:10 volume on in AM [Entitic source volume] data in Blood by Automated count Platelets 142 - 424 K/mm3 No No Sep 20 informati informati 2017 2:10 [#/volume on in on in AM ] in source source Blood data data Erythrocy 4.6 - 6.2 M/mm3 Low No Sep 20 jefe informati 2017 2:10 [#/volume on in AM ] in source Amniotic data fluid Erythrocy 11.5 - % Normal No Sep 20 te 17.5 informati 2017 2:10 distribut on in AM ion width source [Entitic data volume] by Automated count Leukocyte 4.8 - K/MM3 Normal No Sep 20 s 10.8 informati 2017 2:10 [#/volume on in AM ] in source Blood data CBC W Auto Differential panel in Blood Observa Value Referen Units Interpr Notes Date tion ce etation Range Basophils 0 - 0.2 K/MM3 Normal No Sep 13 informati 2017 6:00 [#/volume on in AM ] in source Blood by data Automated count Basophils 0.1 - 2.0 % Normal No Sep 13 /100 informati 2017 6:00 leukocyte on in AM s in source Blood by data Automated count Eosinophi 0.0 - 0.4 K/mm3 Normal No Sep 13 ls informati 2017 6:00 [#/volume on in AM ] in source Blood by data Automated count Eosinophi 0.1 - % Normal No Sep 13 ls/100 12.0 informati 2016 6:00 leukocyte on in AM s in source Blood by data Automated count Granulocy 1.3 - 8.0 K/mm3 High No Sep 13 jefe informati 2017 6:00 [#/volume on in AM ] in source Blood by data Automated count Granulocy 37.0 - % High No Sep 13 jefe/100 80.0 informati 2016 6:00 leukocyte on in AM s in source Blood by data Automated count Hematocri 42.0 - % Low No Sep 13 t [Volume 52.0 informati 2017 6:00 on in AM Fraction] source of Blood data Hemoglobi 14.1 - g/dL Low No Sep 13 n 18.0 informati 2016 6:00 [Mass/vol on in AM ume] in source Blood data Lymphocyt 0.7 - 4.5 K/mm3 Normal No Sep 13 es informati 2016 6:00 [#/volume on in AM ] in source Unspecifi data ed specimen by Automated count Lymphocyt 10 - 50 % Normal No Sep 13 es informati 2016 6:00 [#/volume on in AM ] in source Unspecifi data ed specimen by Automated count Erythrocy 27 - 31.2 pg Normal No Sep 13 te mean informati 2016 6:00 corpuscul on in AM ar source hemoglobi data n [Entitic mass] Erythrocy 31.8 - g/dl Normal No Sep 13 te mean 35.4 informati 2016 6:00 corpuscul on in AM ar source hemoglobi data n concentra tion [Mass/vol ume] by Automated count Erythrocy 82.2 - fl Normal No Sep 13 te mean 97.8 informati 2016 6:00 corpuscul on in AM ar volume source [Entitic data volume] by Automated count Monocytes 0.1 - 1.0 K/mm3 Normal No Sep 13 informati 2017 6:00 [#/volume on in AM ] in source Blood by data Automated count Monocytes 1.7 - 9.3 % Normal No Sep 13 /100 informati 2017 6:00 leukocyte on in AM s in source Blood by data Automated count Platelet 7.4 - fl Normal No Sep 13 mean 10.4 informati 2017 6:00 volume on in AM [Entitic source volume] data in Blood by Automated count Platelets 142 - 424 K/mm3 Normal No Sep 13 informati 2017 6:00 [#/volume on in AM ] in source Blood data Erythrocy 4.6 - 6.2 M/mm3 Low No Sep 13 jefe informati 2016 6:00 [#/volume on in AM ] in source Amniotic data fluid Erythrocy 11.5 - % Normal No Sep 13 te 17.5 informati 2016 6:00 distribut on in AM ion width source [Entitic data volume] by Automated count Leukocyte 4.8 - K/MM3 High No Sep 13 s 10.8 informati 2016 6:00 [#/volume on in AM ] in source Blood data Basic metabolic panel in Blood Observa Value Referen Units Interpr Notes Date tion ce etation Range Urea 7 - 18 mg/dL High No Sep 13 nitrogen informati 2017 6:00 [Mass/vol on in AM ume] in source Serum or data Plasma Calcium 8.5 - mg/dL Low No Sep 13 [Mass/vol 10.1 informati 2017 6:00 ume] in on in AM Serum or source Plasma data Chloride 98 - 107 mmoL/L Normal No Sep 13 [Moles/vo informati 2017 6:00 lume] in on in AM Serum or source Plasma data Carbon 21.0 - mmoL/L Normal No Sep 13 dioxide, 32.0 informati 2017 6:00 total on in AM [Moles/vo source lume] in data Serum or Plasma Creatinin 0.70 - mg/dL High No Sep 13 e 1.30 informati 2016 6:00 [Mass/vol on in AM ume] in source Serum or data Plasma Creatinin 50 - 200 ML/MIN Low No Sep 13 e renal informati 2017 6:00 clearance on in AM source predicted data by Cockcroft -Gault formula Estimated >60 ML/MIN No REFERENCE Sep 13 informati RANGE: 2017 6:00 glomerula on in >60 AM r source ML/MIN/1. filtratio data 73 SQUARE n rate METERSIf (GF this patient is -A merican, then multiply theresult by 1.210. Glucose 74 - 106 mg/dL Normal No Sep 13 [Mass/vol informati 2017 6:00 ume] in on in AM Serum or source Plasma data Potassium 3.5 - 5.1 mmoL/L Normal No Sep 13 informati 2017 6:00 [Moles/vo on in AM lume] in source Serum or data Plasma Sodium 136 - 145 mmoL/L Low No Sep 13 [Moles/vo informati 2017 6:00 lume] in on in AM Serum or source Plasma data Basic metabolic panel in Blood Observa Value Referen Units Interpr Notes Date tion ce etation Range Urea 7 - 18 mg/dL High No Sep 12 nitrogen informati 2017 6:10 [Mass/vol on in AM ume] in source Serum or data Plasma Calcium 8.5 - mg/dL Low No Sep 12 [Mass/vol 10.1 informati 2017 6:10 ume] in on in AM Serum or source Plasma data Chloride 98 - 107 mmoL/L Normal No Sep 12 [Moles/vo informati 2017 6:10 lume] in on in AM Serum or source Plasma data Carbon 21.0 - mmoL/L Normal No Sep 12 dioxide, 32.0 informati 2017 6:10 total on in AM [Moles/vo source lume] in data Serum or Plasma Creatinin 0.70 - mg/dL High No Sep 12 e 1.30 informati 2017 6:10 [Mass/vol on in AM ume] in source Serum or data Plasma Creatinin 50 - 200 ML/MIN Low No Sep 12 e renal informati 2017 6:10 clearance on in AM source predicted data by Cockcroft -Gault formula Estimated >60 ML/MIN No REFERENCE Sep 12 informati RANGE: 2016 6:10 glomerula on in >60 AM r source ML/MIN/1. filtratio data 73 SQUARE n rate METERSIf (GF this patient is -A merican, then multiply theresult by 1.210. Glucose 74 - 106 mg/dL Normal No Sep 12 [Mass/vol informati 2017 6:10 ume] in on in AM Serum or source Plasma data Potassium 3.5 - 5.1 mmoL/L Normal No Sep 12 informati 2017 6:10 [Moles/vo on in AM lume] in source Serum or data Plasma Sodium 136 - 145 mmoL/L Normal No Sep 12 [Moles/vo informati 2017 6:10 lume] in on in AM Serum or source Plasma data CBC W Auto Differential panel in Blood Observa Value Referen Units Interpr Notes Date tion ce etation Range Basophils 0 - 0.2 K/MM3 Normal No Sep 12 informati 2017 6:10 [#/volume on in AM ] in source Blood by data Automated count Basophils 0.1 - 2.0 % Normal No Sep 12 /100 informati 2017 6:10 leukocyte on in AM s in source Blood by data Automated count Eosinophi 0.0 - 0.4 K/mm3 Normal No Sep 12 ls informati 2017 6:10 [#/volume on in AM ] in source Blood by data Automated count Eosinophi 0.1 - % Normal No Sep 12 ls/100 12.0 informati 2017 6:10 leukocyte on in AM s in source Blood by data Automated count Granulocy 1.3 - 8.0 K/mm3 High No Sep 12 jefe informati 2017 6:10 [#/volume on in AM ] in source Blood by data Automated count Granulocy 37.0 - % Normal No Sep 12 jefe/100 80.0 informati 2017 6:10 leukocyte on in AM s in source Blood by data Automated count Hematocri 42.0 - % Low No Sep 12 t [Volume 52.0 informati 2017 6:10 on in AM Fraction] source of Blood data Hemoglobi 14.1 - g/dL Low No Sep 12 n 18.0 informati 2017 6:10 [Mass/vol on in AM ume] in source Blood data Lymphocyt 0.7 - 4.5 K/mm3 Normal No Sep 12 es informati 2017 6:10 [#/volume on in AM ] in source Unspecifi data ed specimen by Automated count Lymphocyt 10 - 50 % Normal No Sep 12 es informati 2017 6:10 [#/volume on in AM ] in source Unspecifi data ed specimen by Automated count Erythrocy 27 - 31.2 pg Normal No Sep 12 te mean informati 2017 6:10 corpuscul on in AM ar source hemoglobi data n [Entitic mass] Erythrocy 31.8 - g/dl Normal No Sep 12 te mean 35.4 informati 2017 6:10 corpuscul on in AM ar source hemoglobi data n concentra tion [Mass/vol ume] by Automated count Erythrocy 82.2 - fl Normal No Sep 12 te mean 97.8 informati 2017 6:10 corpuscul on in AM ar volume source [Entitic data volume] by Automated count Monocytes 0.1 - 1.0 K/mm3 Normal No Sep 12 informati 2017 6:10 [#/volume on in AM ] in source Blood by data Automated count Monocytes 1.7 - 9.3 % Normal No Sep 12 /100 informati 2017 6:10 leukocyte on in AM s in source Blood by data Automated count Platelet 7.4 - fl Normal No Sep 12 mean 10.4 informati 2017 6:10 volume on in AM [Entitic source volume] data in Blood by Automated count Platelets 142 - 424 K/mm3 Normal No Sep 12 informati 2017 6:10 [#/volume on in AM ] in source Blood data Erythrocy 4.6 - 6.2 M/mm3 Low No Sep 12 jefe informati 2017 6:10 [#/volume on in AM ] in source Amniotic data fluid Erythrocy 11.5 - % Normal No Sep 12 te 17.5 informati 2017 6:10 distribut on in AM ion width source [Entitic data volume] by Automated count Leukocyte 4.8 - K/MM3 High No Sep 12 s 10.8 informati 2016 6:10 [#/volume on in AM ] in source Blood data Urinalysis dipstick W Reflex Microscopic panel in Urine Observa Value Referen Units Interpr Notes Date tion ce etation Range Appeara CLEAR CLEAR No No No Sep 11 nce of informa informa informa 2017 Urine tion in tion in tion in 9:30 AM source source source data data data Bacteri 2+ O No No No Sep 11 a informa informa informa 2017 [Presen tion in tion in tion in 9:30 AM ce] in source source source Urine data data data sedimen t by Light microsc opy Bilirub NEGATIV NEG No No No Sep 11 in E informa informa informa 2017 [Presen tion in tion in tion in 9:30 AM ce] in source source source Urine data data data by Test strip Erythro 2+ NEG No Abnorma No Sep 11 cytes informa l informa 2017 [Presen tion in tion in 9:30 AM ce] in source source Urine data data Color YELLOW YELLOW No No No Sep 11 of informa informa informa 2017 Urine tion in tion in tion in 9:30 AM source source source data data data Glucose NEG No No No Sep 11 [Mass/vol informati informati informati 2017 9:30 ume] in on in on in on in AM Urine by source source source Test data data data strip Ketones NEGATIV NEG mg/dL No No Sep 11 E informa informa 2017 [Presen tion in tion in 9:30 AM ce] in source source Urine data data by Automat ed test strip Mucus NEGATIV NEG No No No Sep 11 [Presen E informa informa informa 2016 ce] in tion in tion in tion in 9:30 AM Urine source source source sedimen data data data t by Light microsc opy Nitrite NEGATIV NEG No No No Sep 11 E informa informa informa 2016 [Presen tion in tion in tion in 9:30 AM ce] in source source source Urine data data data by Test strip pH of 5.0 - 8.5 No Normal No Sep 11 Urine informati informati 2017 9:30 on in on in AM source source data data Protein NEG mg/dL High No Sep 11 [Mass/vol informati 2017 9:30 ume] in on in AM Urine by source Automated data test strip Erythro 3-5 0 rbc/hpf No No Sep 11 cytes informa informa 2017 [Presen tion in tion in 9:30 AM ce] in source source Urine data data sedimen t by Light microsc opy Specific 1.005 - No Normal No Sep 11 gravity 1.030 informati informati 2017 9:30 of Urine on in on in AM source source data data Epithel OCC OCC #/hpf No No Sep 11 ial informa informa 2017 cells.s tion in tion in 9:30 AM quamous source source data data [Presen ce] in Urine sedimen t by Microsc opy high power field Urobili 0.2 NEG E.U./dL No No Sep 11 nogen informa informa 2017 [Presen tion in tion in 9:30 AM ce] in source source Urine data data by Test strip Leukocyte O wbc/hpf No No Sep 11 s informati informati 2017 9:30 [#/volume on in on in AM ] in source source Urine data data Urinalysis dipstick W Reflex Microscopic panel in Urine Observa Value Referen Units Interpr Notes Date tion ce etation Range Appeara CLEAR CLEAR No No No Sep 11 nce of informa informa informa 2017 Urine tion in tion in tion in 9:30 AM source source source data data data Bilirub NEGATIV NEG No No No Sep 11 in E informa informa informa 2017 [Presen tion in tion in tion in 9:30 AM ce] in source source source Urine data data data by Test strip Erythro 2+ NEG No Abnorma No Sep 11 cytes informa l informa 2016 [Presen tion in tion in 9:30 AM ce] in source source Urine data data Color YELLOW YELLOW No No No Sep 11 of informa informa informa 2017 Urine tion in tion in tion in 9:30 AM source source source data data data Glucose NEG No No No Sep 11 [Mass/vol informati informati informati 2017 9:30 ume] in on in on in on in AM Urine by source source source Test data data data strip Ketones NEGATIV NEG mg/dL No No Sep 11 E informa informa 2017 [Presen tion in tion in 9:30 AM ce] in source source Urine data data by Automat ed test strip Mucus NEGATIV NEG No No No Sep 11 [Presen E informa informa informa 2017 ce] in tion in tion in tion in 9:30 AM Urine source source source sedimen data data data t by Light microsc opy Nitrite NEGATIV NEG No No No Sep 11 E informa informa informa 2017 [Presen tion in tion in tion in 9:30 AM ce] in source source source Urine data data data by Test strip pH of 5.0 - 8.5 No Normal No Sep 11 Urine informati informati 2017 9:30 on in on in AM source source data data Protein NEG mg/dL High No Sep 11 [Mass/vol informati 2017 9:30 ume] in on in AM Urine by source Automated data test strip Specific 1.005 - No Normal No Sep 11 gravity 1.030 informati informati 2017 9:30 of Urine on in on in AM source source data data Urobili 0.2 NEG E.U./dL No No Sep 11 nogen informa informa 2017 [Presen tion in tion in 9:30 AM ce] in source source Urine data data by Test strip Comprehensive metabolic 2000 panel in Serum or Plasma Observa Value Referen Units Interpr Notes Date tion ce etation Range Albumin/G 1.1 - 1.8 No Low No Sep 11 lobulin informati informati 2017 8:10 [Mass on in on in AM ratio] in source source Serum or data data Plasma Albumin 3.4 - 5.0 gm/dL Normal No Sep 11 [Mass/vol informati 2017 8:10 ume] in on in AM Serum or source Plasma data Alkaline 46 - 116 U/L Normal No Sep 11 phosphata informati 2017 8:10 se on in AM [Enzymati source c data activity/ volume] in Serum or Plasma Bilirubin 0.2 - 1.0 mg/dL Normal No Sep 11 .total informati 2017 8:10 [Mass/vol on in AM ume] in source Serum or data Plasma Urea 7 - 18 mg/dL High No Sep 11 nitrogen informati 2017 8:10 [Mass/vol on in AM ume] in source Serum or data Plasma Calcium 8.5 - mg/dL Normal No Sep 11 [Mass/vol 10.1 informati 2017 8:10 ume] in on in AM Serum or source Plasma data Chloride 98 - 107 mmoL/L Normal No Sep 11 [Moles/vo informati 2017 8:10 lume] in on in AM Serum or source Plasma data Carbon 21.0 - mmoL/L Normal No Sep 11 dioxide, 32.0 informati 2017 8:10 total on in AM [Moles/vo source lume] in data Serum or Plasma Creatinin 0.70 - mg/dL High No Sep 11 e 1.30 informati 2017 8:10 [Mass/vol on in AM ume] in source Serum or data Plasma Creatinin 50 - 200 ML/MIN Low No Sep 11 e renal informati 2017 8:10 clearance on in AM source predicted data by Cockcroft -Gault formula Estimated >60 ML/MIN No REFERENCE Sep 11 informati RANGE: 2016 8:10 glomerula on in >60 AM r source ML/MIN/1. filtratio data 73 SQUARE n rate METERSIf (GF this patient is -A merican, then multiply theresult by 1.210. Globulin 1.3 - 3.2 gm/dL High No Sep 11 [Mass/vol informati 2017 8:10 ume] in on in AM Serum source data Glucose 74 - 106 mg/dL High No Sep 11 [Mass/vol informati 2016 8:10 ume] in on in AM Serum or source Plasma data Potassium 3.5 - 5.1 mmoL/L Normal No Sep 11 inform2016 8:10 [Moles/vo on in AM lume] in source Serum or data Plasma Sodium 136 - 145 mmoL/L Normal No Sep 11 [Moles/vo informati 2016 8:10 lume] in on in AM Serum or source Plasma data Aspartate 15 - 37 U/L High No Sep 11 informati 2016 8:10 aminotran on in AM sferase source [Enzymati data c activity/ volume] in Serum or Plasma Alanine 12 - 78 U/L Normal No Sep 11 aminotran informati 2016 8:10 sferase on in AM [Enzymati source c data activity/ volume] in Serum or Plasma Protein 6.4 - 8.2 gm/dL Normal No Sep 11 [Mass/vol informati 2016 8:10 ume] in on in AM Serum or source Plasma data CBC W Auto Differential panel in Blood Observa Value Referen Units Interpr Notes Date tion ce etation Range Basophils 0 - 0.2 K/MM3 Normal No Sep 11 informati 2016 8:10 [#/volume on in AM ] in source Blood by data Automated count Basophils 0.1 - 2.0 % Normal No Sep 11 /100 informati 2016 8:10 leukocyte on in AM s in source Blood by data Automated count Eosinophi 0.0 - 0.4 K/mm3 Normal No Sep 11 ls informati 2016 8:10 [#/volume on in AM ] in source Blood by data Automated count Eosinophi 0.1 - % Normal No Sep 11 ls/100 12.0 informati 2017 8:10 leukocyte on in AM s in source Blood by data Automated count Granulocy 1.3 - 8.0 K/mm3 High No Sep 11 jefe informati 2017 8:10 [#/volume on in AM ] in source Blood by data Automated count Granulocy 37.0 - % Normal No Sep 11 jefe/100 80.0 informati 2017 8:10 leukocyte on in AM s in source Blood by data Automated count Hematocri 42.0 - % Low No Sep 11 t [Volume 52.0 informati 2016 8:10 on in AM Fraction] source of Blood data Hemoglobi 14.1 - g/dL Low No Sep 11 n 18.0 informati 2017 8:10 [Mass/vol on in AM ume] in source Blood data Lymphocyt 0.7 - 4.5 K/mm3 Normal No Sep 11 es informati 2017 8:10 [#/volume on in AM ] in source Unspecifi data ed specimen by Automated count Lymphocyt 10 - 50 % Normal No Sep 11 es informati 2016 8:10 [#/volume on in AM ] in source Unspecifi data ed specimen by Automated count Erythrocy 27 - 31.2 pg Normal No Sep 11 te mean informati 2017 8:10 corpuscul on in AM ar source hemoglobi data n [Entitic mass] Erythrocy 31.8 - g/dl Normal No Sep 11 te mean 35.4 informati 2016 8:10 corpuscul on in AM ar source hemoglobi data n concentra tion [Mass/vol ume] by Automated count Erythrocy 82.2 - fl Normal No Sep 11 te mean 97.8 informati 2016 8:10 corpuscul on in AM ar volume source [Entitic data volume] by Automated count Monocytes 0.1 - 1.0 K/mm3 Normal No Sep 11 informati 2016 8:10 [#/volume on in AM ] in source Blood by data Automated count Monocytes 1.7 - 9.3 % Normal No Sep 11 /100 informati 2016 8:10 leukocyte on in AM s in source Blood by data Automated count Platelet 7.4 - fl Normal No Sep 11 mean 10.4 informati 2016 8:10 volume on in AM [Entitic source volume] data in Blood by Automated count Platelets 142 - 424 K/mm3 Normal No Sep 11 informati 2016 8:10 [#/volume on in AM ] in source Blood data Erythrocy 4.6 - 6.2 M/mm3 Low No Sep 11 jefe informati 2017 8:10 [#/volume on in AM ] in source Amniotic data fluid Erythrocy 11.5 - % Normal No Sep 11 te 17.5 informati 2017 8:10 distribut on in AM ion width source [Entitic data volume] by Automated count Leukocyte 4.8 - K/MM3 High No Sep 11 s 10.8 informati 2017 8:10 [#/volume on in AM ] in source Blood data
--- OUTSIDE RECORDS SUMMARY | 2017-06-02 17:08 | External Medical Summary Rpt ---
[...] Date tion ce etation Range COMMENTS TO CAGE OPERATOR: PER CT PROTOCOL Cholester < 200 mg/dL No No [...]
== END 2017-05-28 02:59 | disposition home or self-care (01) ==
LOC: ER 22:40
PROVIDERS: Emergency Medicine
DX: F19.921 Other psychoactive substance use, unspecified with intoxication with delirium (principal); D64.9 Anemia, unspecified; N28.9 Disorder of kidney and ureter, unspecified; I10 Essential (primary) hypertension; Z79.82 Long term (current) use of aspirin; Z91.018 Allergy to other foods

== ENCOUNTER 2017-06-14 08:38 | Emergency (ER) | payer MEDICARE, OTHER ==
[~2017-06-14] VITALS: Ht 180.3 cm; Wt 81.6 kg
--- OUTSIDE RECORDS SUMMARY | 2017-06-14 08:50 | External Medical Summary Rpt | Continuity of Care Document ---
Author Author Organization Address Unknown Phone Unavailable Care Team Providers Care Gas Plant Worker Name Role Phone , Unavailable Unavailable EMS Current Medications Section EMS Allergies and Adverse Reactions EMS Past Medical History Medications Administered Section EMS Procedures Performed EMS Vital Signs EMS Patient Care Report Narrative EC-2 was dispatched to [facility] for a patient that is unresponsive. Upon arrival EC-2 found an 86 year old male sitting up in the bed. Nursing staff on scene stated that the patient had seizure like activity non stop for two to three minutes and then went unresponsive. Negative Cleaner Christiano asked the nursing staff how long the patient has been unresponsive and they stated he still is unresponsive while EMS was present. Patient is a resident of this facility receiving rodent exterminator care. Patient has a history of a recent right femur fracture, AAA, SC and mitral regurgitation. Patient was alert and [...] showed a sinus rhythm with LVH. No SC was suspected. Patient was transported without incident to [facility] ER. Upon arrival, patient was [...] possible hospital admission. Tests were unavailable at [facility] and a higher level of care was required.
--- OUTSIDE RECORDS SUMMARY | 2017-06-14 08:50 | External Medical Summary Rpt | Continuity of Care Document ---
Author Author Organization Address Unknown Phone Unavailable Care Team Providers Care Gravity Meter Operator Name Role Phone , Unavailable Unavailable EMS Current Medications Section EMS Allergies and Adverse Reactions EMS Past Medical History Medications Administered Section EMS Procedures Performed EMS Vital Signs EMS Patient Care Report Narrative DIRECT CALL IN FROM [facility] ER FOR A TRANSPORT TO [facility] WITH MR. GORE. PT IS RETURNING TO CONTINUE HIS REHAB AFTER BEING SEEN IN THE ER TONIGHT FOR AMS. PT REQUIRES TRANSPORT DUE TO BEING BED CONFINED DUE TO A RECENT NON HEALED RT FEMUR FX. PT IS NON WEIGHT BEARING ON HIS RT LEG. PT REQUIRES SPECIAL HANDLING AND POSITIONING DUE TO PAIN IN HIS RT LEG. UPON ARRIVAL TO PT HE WAS LAYING IN BED WITH FAMILY AT BEDSIDE. PT WAS 4-5-6, SKIN W/D, NORMA, L/S C=. PT CO RT LEG PAIN FROM HIS FX. LOADED PT ONTO COT VIA DRAW SHEET METHOD WITH A NURSE HOLDING HIS LEGS. LOADED PT INTO THE AMBULANCE. OBTAINED V/S AND MONITORED PT EN ROUTE TO [facility]. TRANSPORT WITH OUT INCIDENT. NO CHANGE IN STATUS. REPORT AND CARE GIVEN TO [facility] [facility] [place] LAW CLERK. Tracy SAMAYOA CCP.
--- OUTSIDE RECORDS SUMMARY | 2017-06-14 08:50 | External Medical Summary Rpt | Continuity of Care Document ---
Author Author Organization Address Unknown Phone Unavailable Care Team Providers Care Fast Food Cook Name Role Phone , Unavailable Unavailable EMS Current Medications Section EMS Allergies and Adverse Reactions EMS Past Medical History Medications Administered Section EMS Procedures Performed EMS Vital Signs EMS Patient Care Report Narrative DIRECT CALL IN FROM [facility] ER FOR A TRANSPORT TO [facility] WITH MR. GORE. [...] V/S AND MONITORED PT EN ROUTE TO [facility]. TRANSPORT WITH OUT INCIDENT. NO CHANGE IN STATUS. REPORT AND CARE GIVEN TO CONSULTING ACTUARY. Tracy SAMAYOA CCP.
--- OUTSIDE RECORDS SUMMARY | 2017-06-14 08:50 | External Medical Summary Rpt | Continuity of Care Document ---
Author Author Organization Address Unknown Phone Unavailable Care Team Providers Care Finishing Room Supervisor Name Role Phone , Unavailable Unavailable EMS Current Medications Section EMS Allergies and Adverse Reactions EMS Past Medical History Medications Administered Section EMS Procedures Performed EMS Vital Signs EMS Patient Care Report Narrative DIRECT CALL IN FROM [facility] ER FOR A TRANSPORT TO [facility] WITH MR. GORE. PT [...] V/S AND MONITORED PT EN ROUTE TO [facility]. TRANSPORT WITH OUT INCIDENT. NO CHANGE IN STATUS. REPORT AND CARE GIVEN TO PATTERN WORKER. Tracy SAMAYOA CCP.
--- OUTSIDE RECORDS SUMMARY | 2017-06-14 08:50 | External Medical Summary Rpt | Continuity of Care Document ---
Author Author Organization Address Unknown Phone Unavailable Care Team Providers Care Lay Out Machine Operator Name Role Phone , Unavailable Unavailable EMS Current Medications Section EMS Allergies and Adverse Reactions EMS Past Medical History Medications Administered Section EMS Procedures Performed EMS Vital Signs EMS Patient Care Report Narrative DIRECT CALL IN FROM [facility] ER FOR A TRANSPORT TO [facility] WITH MR. [...] V/S AND MONITORED PT EN ROUTE TO [facility]. TRANSPORT WITH OUT INCIDENT. NO CHANGE IN STATUS. REPORT AND CARE GIVEN TO JOGGER OPERATOR. Tracy SAMAYOA CCP.
--- OUTSIDE RECORDS SUMMARY | 2017-06-14 08:50 | External Medical Summary Rpt | Continuity of Care Document ---
Author Author Organization Address Unknown Phone Unavailable Care Team Providers Care Neurological Surgery Teacher Name Role Phone , Unavailable Unavailable EMS Current Medications Section EMS Allergies and Adverse Reactions EMS Past Medical History Medications Administered Section EMS Procedures Performed EMS Vital Signs EMS Patient Care Report Narrative EC-2 was dispatched to [facility] for a patient that is unresponsive. Upon arrival EC-2 found an 86 year old male sitting up in the bed. Nursing staff on scene stated that the patient had seizure like activity non stop for two to three minutes and then went unresponsive. Developmental Training Counselor Christiano asked the nursing staff how long the patient has been unresponsive and they stated he still is unresponsive while EMS was present. Patient is a resident of this facility receiving oil heaterman care. Patient has a history of a recent right femur fracture, AAA, MD and mitral regurgitation. Patient was alert and [...] showed a sinus rhythm with LVH. No MD was suspected. Patient was transported without incident to [facility] ER. Upon arrival, patient was [...] possible hospital admission. Tests were unavailable at [facility] and a higher level of care was required.
--- OUTSIDE RECORDS SUMMARY | 2017-06-14 08:51 | External Medical Summary Rpt | CCD ---
Author Author , VIOLETTA Organization VIOLETTA Address Unknown Phone [email or web address] Purpose Continuity of Care Document - 03-29-2017 through 2016 Results Labs Lab Lab Date Result Refere Interp Status Commen Order Detail nces retati t Range on Comprehensive metabolic panel (05-28-2017 00:20) Protein = 6.5 6.4-8.2 complet total 017 gm/dL ed ser/sadia 00:20 s ALT = 14 12-78 complet (SGPT) 017 U/L ed ser/sadia 00:20 s Serum = 27 15-37 complet or 017 U/L ed plasma 00:20 asparta te aminotr ansfera Serum = 139 136-145 complet sodium 017 mmoL/L ed measure 00:20 ment Serum = 4.8 3.5-5.1 complet potassi 017 mmoL/L ed um 00:20 measure ment Serum = 107 74-106 complet or 017 mg/dL ed plasma 00:20 glucose measure ment (mas Serum = 3.9 1.3-3.2 complet globuli 017 gm/dL ed n 00:20 measure ment (mass/v olume) Estimat = 25 >60 complet ed 017 ML/MIN ed glomeru 00:20 lar filtrat ion rate (GF Comment: REFERENCE RANGE: >60 ML/MIN/1.73 SQUARE METERS Comment: If this patient is -Haitian, then multiply the Comment: result by 1.210. Estimat = 22 50-200 complet ion of 017 ML/MIN ed creatin 00:20 ine renal clearan ce Serum = 2.5 0.70-1. complet or 017 mg/dL 30 ed plasma 00:20 creatin ine measure ment ( Carbon = 20 21.0-32 complet dioxide 017 mmoL/L .0 ed 00:20 measure ment Serum = 108 98-107 complet or 017 mmoL/L ed plasma 00:20 chlorid e measure ment (mo Serum = 8.7 8.5-10. complet or 017 mg/dL 1 ed plasma 00:20 calcium measure ment (mas Serum = 39 7-18 complet or 017 mg/dL ed plasma 00:20 urea nitroge n measure men Serum = 0.5 0.2-1.0 complet or 017 mg/dL ed plasma 00:20 total bilirub in measure m Serum = 108 46-116 complet or 017 U/L ed plasma 00:20 alkalin e phospha tase [place] Serum = 2.6 3.4-5.0 complet or 017 gm/dL ed plasma 00:20 albumin measure ment (mas Serum = 0.7 1.1-1.8 complet or 017 ed plasma 00:20 albumin /globul in mass ra Cardiac enzymes (05-28-2017 00:20) Serum = 3.6 0-4.0 complet or 017 U/L ed plasma 00:20 creatin e kinase MB (CK-M Serum = 0.59 0.00-0. complet or 017 ng/mL 06 ed plasma 00:20 troponi n i.cardi ac measu Comment: CRITICAL RESULTS Comment: RESULTS CALLED TO: Bridget HSAFER LICENSED VOCATIONAL NURSE 05/28/17 0130 Comment: Tay Weiner Comment: > 0.5 IS CONSISTENT WITH MYOCARDIAL ISCHEMIA OR INFARCTION Serum = 28 39-308 complet or 017 U/L ed plasma 00:20 creatin e kinase measure m Serum = 1.0 0.0-3.6 complet or 017 ng/mL ed plasma 00:20 creatin e kinase MB measu CBC w auto diff (05-28-2017 00:20) Blood = 7.3 4.8-10. complet leukocy 017 K/MM3 8 ed jefe 00:20 count (number /volume ) Automat 10-08-2 = 15.5 11.5-17 complet ed 017 % .5 ed erythro 00:20 cyte distrib ution width Red = 2.99 4.6-6.2 complet blood 017 M/mm3 ed cell 00:20 count Blood = 189 142-424 complet platele 017 K/mm3 ed t count 00:20 Automat = 9.2 7.4-10. complet ed 017 fl 4 ed blood 00:20 platele t mean volume [place] % = 9.1 % 1.7-9.3 complet 017 ed 00:20 Absolut = 0.7 0.1-1.0 complet e 017 K/mm3 ed monocyt 00:20 e count Automat = 96.7 82.2-97 complet ed 017 fl .8 ed erythro 00:20 cyte mean corpusc ular v Automat = 31.5 31.8-35 complet ed 017 g/dl .4 ed erythro 00:20 cyte mean corpusc ular h Mean = 30.5 27-31.2 complet corpusc 017 pg ed ular 00:20 hemoglo bin ([facility]) determ Lymphoc = 18.1 10-50 complet yte 017 % ed count, 00:20 blood, automat ed Absolut = 1.3 0.7-4.5 complet e 017 K/mm3 ed lymphoc 00:20 yte count Blood = 9.1 14.1-18 complet hemoglo 017 g/dL .0 ed bin 00:20 measure ment (mass/v olum Blood = 28.9 42.0-52 complet hematoc 017 % .0 ed rit 00:20 (volume fractio n) Granulo = 67.0 37.0-80 complet cyte 017 % .0 ed percent 00:20 age Blood = 4.9 1.3-8.0 complet granulo 017 K/mm3 ed cytes 00:20 automat ed count (numb Automat = 4.8 % 0.1-12. complet ed 017 0 ed blood 00:20 eosinop hils/10 0 leukocy t Automat = 0.4 0.0-0.4 complet ed 017 K/mm3 ed blood 00:20 eosinop hil count Baso % = 1.0 % 0.1-2.0 complet 017 ed 00:20 Automat = 0.1 0-0.2 complet ed 017 K/MM3 ed blood 00:20 basophi l count (count/ vo Urinalysis dipstick W Reflex Microscopic panel in [...] SerPl-mCnc (03-29-2017 10:53) NT-proB 4620 0-1799 complet OCCUPATIONAL HYGIENIST 017 pg/mL ed SerPl-m 10:53 Cnc Lipase SerPl-cCnc (03-29-2017 10:53) Lipase 28 U/L 19-63 complet SerPl-c 017 ed Cnc 10:53
--- OUTSIDE RECORDS SUMMARY | 2017-06-14 08:51 | External Medical Summary Rpt | CCD ---
Author Author , VIOLETTA Organization VIOLETTA Address Unknown Phone [email or web address] Purpose Continuity of Care Document - 03-29-2017 [...] SQUARE METERS Comment: If this patient is -Serbian, then multiply the Comment: result by 1.210. [...] CRITICAL RESULTS Comment: RESULTS CALLED TO: Bridget SHAFER GIMP TACKER 05/28/17 0130 Comment: Tay Weiner Comment: > [...] blood 00:20 platele t mean volume [place] % = 9.1 % 1.7-9.3 complet 017 [...] SerPl-mCnc (03-29-2017 10:53) NT-proB 4620 0-1799 complet DIRECTOR NEWS 017 pg/mL ed SerPl-m 10:53 Cnc Lipase SerPl-cCnc (03-29-2017 10:53) Lipase 28 U/L 19-63 complet SerPl-c 017 ed Cnc 10:53
--- OUTSIDE RECORDS SUMMARY | 2017-06-14 08:52 | External Medical Summary Rpt | CCD ---
Demographics Preferred Language Thai Marital Status Unknown Islam Affiliation Unknown Race Unknown Ethnic Group Unknown Author Author , MARIA SHIPLEY Address Unknown Phone Immunization No patient found.
--- OUTSIDE RECORDS SUMMARY | 2017-06-14 08:52 | External Medical Summary Rpt | CCD ---
Demographics Preferred Language Turkish Marital Status Unknown Judaism Affiliation Unknown Race Unknown Ethnic Group Unknown Author Author , MARIA SHIPLEY Address Unknown Phone Immunization No patient found.
--- OUTSIDE RECORDS SUMMARY | 2017-06-14 08:53 | External Medical Summary Rpt ---
Author Author VIOLETTA Bowers, [employer] Organization [employer] Address Unknown Phone Unavailable Results Cardiac enzymes Observa Value Referen Units Interpr Notes Date tion ce etation Range Creatine 0 - 4.0 U/L Normal No May 28 kinase.MB informati 2016 /Creatine on in 12:20 AM source kinase.to data natalie [Ratio] in Serum or Plasma Creatine 0.0 - 3.6 ng/mL Normal No May 28 kinase.MB informati 2016 on in 12:20 AM [Mass/vol source ume] in data Serum or Plasma Creatine 39 - 308 U/L Low No May 8 kinase informati 2016 [Enzymati on in 12:20 AM c source activity/ data volume] in Serum or Plasma Troponin 0.00 - ng/mL High May 28 I.cardiac 0.06 2017 CRITICAL 12:20 AM [Mass/vol RESULTS ume] in Serum or RESU Plasma LTS CALLED TO: Bridget BEDOLLA 05/28/17 0130Spark Tay alba> 0.5 IS CONSISTEN T WITH MYOCARDIA L ISCHEMIA OR INFARCTIO N Comprehensive metabolic 2000 panel in Serum or Plasma Observa Value Referen Units Interpr Notes Date tion ce etation Range Albumin/G 1.1 - 1.8 No Low No May 8 lobulin informati informati 2016 [Mass on in on in 12:20 AM ratio] in source source Serum or data data Plasma Albumin 3.4 - 5.0 gm/dL Low No May 8 [Mass/vol informati 2016 ume] in on in 12:20 AM Serum or source Plasma data Alkaline 46 - 116 U/L Normal No May 8 phosphata informati 2017 se on in 12:20 AM [Enzymati source c data activity/ volume] in Serum or Plasma Bilirubin 0.2 - 1.0 mg/dL Normal No May 8 .total informati 2016 [Mass/vol on in 12:20 AM ume] in source Serum or data Plasma Urea 7 - 18 mg/dL High No Oct 8 nitrogen informati 2017 [Mass/vol on in 12:20 AM ume] in source Serum or data Plasma Calcium 8.5 - mg/dL Normal No Oct 8 [Mass/vol 10.1 informati 2017 ume] in on in 12:20 AM Serum or source Plasma data Chloride 98 - 107 mmoL/L High No May 8 [Moles/vo informati 2017 lume] in on in 12:20 AM Serum or source Plasma data Carbon 21.0 - mmoL/L Low No Oct 8 dioxide, 32.0 informati 2017 total on in 12:20 AM [Moles/vo source lume] in data Serum or Plasma Creatinin 0.70 - mg/dL High No Oct 8 e 1.30 informati 2017 [Mass/vol on in 12:20 AM ume] in source Serum or data Plasma Creatinin 50 - 200 ML/MIN Low No Oct 8 e renal informati 2017 clearance on in 12:20 AM source predicted data by Cockcroft -Gault formula Estimated >60 ML/MIN No REFERENCE Oct 8 informati RANGE: 2017 glomerula on in >60 12:20 AM r source ML/MIN/1. filtratio data 73 SQUARE n rate METERSIf (GF this patient is -A merican, then multiply theresult by 1.210. Globulin 1.3 - 3.2 gm/dL High No Oct 8 [Mass/vol informati 2017 ume] in on in 12:20 AM Serum source data Glucose 74 - 106 mg/dL High No May 8 [Mass/vol informati 2016 ume] in on in 12:20 AM Serum or source Plasma data Potassium 3.5 - 5.1 mmoL/L Normal No Oct 8 informati 2017 [Moles/vo on in 12:20 AM lume] in source Serum or data Plasma Sodium 136 - 145 mmoL/L Normal No Oct 8 [Moles/vo informati 2017 lume] in on in 12:20 AM Serum or source Plasma data Aspartate 15 - 37 U/L Normal No May 8 informati 2017 aminotran on in 12:20 AM sferase source [Enzymati data c activity/ volume] in Serum or Plasma Alanine 12 - 78 U/L Normal No Oct 8 aminotran informati 2017 sferase on in 12:20 AM [Enzymati source c data activity/ volume] in Serum or Plasma Protein 6.4 - 8.2 gm/dL Normal No May 28 [Mass/vol 2016 ume] in on in 12:20 AM Serum or source Plasma data CBC W Auto Differential panel in Blood Observa Value Referen Units Interpr Notes Date tion ce etation Range Basophils 0 - 0.2 K/MM3 Normal No May 28 inform2016 [#/volume on in 12:20 AM ] in source Blood by data Automated count Basophils 0.1 - 2.0 % Normal No May 28 /100 informati 2017 leukocyte on in 12:20 AM s in source Blood by data Automated count Eosinophi 0.0 - 0.4 K/mm3 Normal No May 28 ls inform2016 [#/volume on in 12:20 AM ] in source Blood by data Automated count Eosinophi 0.1 - % Normal No May 28 ls/100 12.0 inform2016 leukocyte on in 12:20 AM s in source Blood by data Automated count Granulocy 1.3 - 8.0 K/mm3 Normal No May 28 jefe 2016 [#/volume on in 12:20 AM ] in source Blood by data Automated count Granulocy 37.0 - % Normal No May 28 jefe/100 80.0 inform2016 leukocyte on in 12:20 AM s in source Blood by data Automated count Hematocri 42.0 - % Low No May 28 t [Volume 52.0 2016 on in 12:20 AM Fraction] source of Blood data Hemoglobi 14.1 - g/dL Low No May 28 n 18.0 2016 [Mass/vol on in 12:20 AM ume] in source Blood data Lymphocyt 0.7 - 4.5 K/mm3 Normal No May 28 es 2016 [#/volume on in 12:20 AM ] in source Unspecifi data ed specimen by Automated count Lymphocyt 10 - 50 % Normal No May 28 es 2016 [#/volume on in 12:20 AM ] in source Unspecifi data ed specimen by Automated count Erythrocy 27 - 31.2 pg Normal No May 28 te mean inform2016 corpuscul on in 12:20 AM ar source hemoglobi data n [Entitic mass] Erythrocy 31.8 - g/dl Low No May 28 te mean 35.4 inform2016 corpuscul on in 12:20 AM ar source hemoglobi data n concentra tion [Mass/vol ume] by Automated count Erythrocy 82.2 - fl Normal No May 28 te mean 97.8 informati 2016 corpuscul on in 12:20 AM ar volume source [Entitic data volume] by Automated count Monocytes 0.1 - 1.0 K/mm3 Normal No May 8 informati 2016 [#/volume on in 12:20 AM ] in source Blood by data Automated count Monocytes 1.7 - 9.3 % Normal No May 8 /100 informati 2017 leukocyte on in 12:20 AM s in source Blood by data Automated count Platelet 7.4 - fl Normal No May 28 mean 10.4 informati 2016 volume on in 12:20 AM [Entitic source volume] data in Blood by Automated count Platelets 142 - 424 K/mm3 No No May 8 informati informati 2016 [#/volume on in on in 12:20 AM ] in source source Blood data data Erythrocy 4.6 - 6.2 M/mm3 Low No May 28 jefe informati 2016 [#/volume on in 12:20 AM ] in source Amniotic data fluid Erythrocy 11.5 - % Normal No May 28 te 17.5 informati 2016 distribut on in 12:20 AM ion width source [Entitic data volume] by Automated count Leukocyte 4.8 - K/MM3 Normal No May 28 s 10.8 informati 2016 [#/volume on in 12:20 AM ] in source Blood data Basic [...] No Sep 21 te mean 35.4 informati 2017 6:30 corpuscul on in AM ar source hemoglobi data n concentra tion [Mass/vol ume] by Automated count Erythrocy 82.2 - fl Normal No Sep 21 te mean 97.8 informati 2017 6:30 corpuscul on in AM ar volume source [Entitic data volume] by Automated count Monocytes 0.1 - 1.0 K/mm3 Normal No Sep 21 informati 2017 [...] M/mm3 Low No Sep 21 jefe informati 2017 6:30 [#/volume on in AM ] in source Amniotic data fluid Erythrocy 11.5 - % Normal No Sep 21 te 17.5 informati 2017 6:30 distribut on in AM ion width source [Entitic data volume] by Automated count Leukocyte 4.8 - K/MM3 Normal No Sep 21 s 10.8 informati 2017 6:30 [#/volume on in AM [...] Plasma LTS CALLED TO: BRIGHT 05/10/17 0937 Jacinta, Elo> 0.5 IS CONSISTEN T WITH MYOCARDIA L ISCHEMIA OR INFARCTIO N Lipid 1996 panel in Serum or Plasma Observa Value Referen Units Interpr Notes Date tion ce etation Range COMMENTS TO DIRECT MAIL MANAGER: PER [place] PROTOCOL Cholester < 200 mg/dL No No [...] No Sep 20 ol in informati informati 2016 2:10 VLDL on in on in AM [...] ng/mL Normal No Sep 20 kinase.MB informati 2016 2:10 on in AM [Mass/vol source ume] [...] TO: ADDIS Rose 05/10/17 0320 Rita Chua ictoria> 0.5 IS CONSISTEN T WITH MYOCARDIA [...] ML/MIN No REFERENCE Sep 20 informati RANGE: 2017 2:10 glomerula on in >60 AM r [...] TO: ADDIS Rose 05/10/17 0320 Rita Chua Sodium 136 - 145 mmoL/L Low No Sep 20 [Moles/vo informati 2017 2:10 lume] in on in AM Serum or source Plasma data Aspartate 15 - 37 U/L Normal No Sep 20 informati 2017 2:10 aminotran on in AM sferase source [Enzymati data c activity/ volume] in Serum or Plasma Alanine 12 - 78 U/L Normal No Sep 20 aminotran informati 2017 2:10 sferase on in AM [Enzymati source [...] High No Sep 20 jefe/100 80.0 informati 2016 2:10 leukocyte on in AM s in source Blood by data Automated count Hematocri 42.0 - % Low No Sep 20 t [Volume 52.0 informati 2017 2:10 on in AM Fraction] source of Blood data Hemoglobi 14.1 - g/dL Low No Sep 20 n 18.0 informati 2016 2:10 [Mass/vol on in AM ume] in source Blood data Lymphocyt 0.7 - 4.5 K/mm3 Normal No Sep 20 es informati 2017 2:10 [#/volume on in AM ] in source Unspecifi data ed specimen by Automated count Lymphocyt 10 - 50 % Normal No Sep 20 es informati 2016 2:10 [#/volume on in AM ] in source Unspecifi data ed specimen by Automated count Erythrocy 27 - 31.2 pg Normal No Sep 20 te mean informati 2017 2:10 corpuscul on in AM ar source hemoglobi data n [Entitic mass] Erythrocy 31.8 - g/dl Normal No Sep 20 te mean 35.4 informati 2016 2:10 corpuscul on in AM ar source [...] Normal No Sep 20 mean 10.4 informati 2016 2:10 volume on in AM [Entitic source volume] data in Blood by Automated count Platelets 142 - 424 K/mm3 No No Sep 20 informati informati 2017 2:10 [#/volume on in on in AM ] in source source Blood data data Erythrocy 4.6 - 6.2 M/mm3 Low No Sep 20 jefe informati 2016 2:10 [#/volume on in AM ] in source Amniotic data fluid Erythrocy 11.5 - % Normal No Sep 20 te 17.5 informati 2016 2:10 distribut on in AM ion width source [Entitic data volume] by Automated count Leukocyte 4.8 - K/MM3 Normal No Sep 20 s 10.8 informati 2016 2:10 [#/volume on in AM [...] % Normal No Sep 13 /100 informati 2016 6:00 leukocyte on in AM s in source Blood by data Automated count Eosinophi 0.0 - 0.4 K/mm3 Normal No Sep 13 ls informati 2016 6:00 [#/volume on in AM [...] K/mm3 Normal No Sep 13 es informati 2017 6:00 [#/volume on in AM ] in source Unspecifi data ed specimen by Automated count Lymphocyt 10 - 50 % Normal No Sep 13 es informati 2017 6:00 [#/volume on in AM ] in source Unspecifi data ed specimen by Automated count Erythrocy 27 - 31.2 pg Normal No Sep 13 te mean informati 2017 6:00 corpuscul on in AM ar source hemoglobi data n [Entitic mass] Erythrocy 31.8 - g/dl Normal No Sep 13 te mean 35.4 informati 2016 6:00 corpuscul on in AM ar source hemoglobi data n concentra tion [Mass/vol ume] by Automated count Erythrocy 82.2 - fl Normal No Sep 13 te mean 97.8 informati 2017 6:00 corpuscul on in AM ar volume [...] - 6.2 M/mm3 Low No Sep 13 jfee informati 2017 6:00 [#/volume on in AM ] in source Amniotic data fluid Erythrocy 11.5 - % Normal No Sep 13 te 17.5 informati 2016 6:00 distribut on in AM ion width source [Entitic data volume] by Automated count Leukocyte 4.8 - K/MM3 High No Sep 13 s 10.8 informati 2017 6:00 [#/volume on in AM [...] High No Sep 13 e 1.30 informati 2017 6:00 [Mass/vol on in AM [...] ML/MIN No REFERENCE Sep 12 informati RANGE: 2017 6:10 glomerula on in >60 AM r [...] Normal No Sep 12 mean 10.4 informati 2016 6:10 volume on in AM [Entitic source [...] High No Sep 12 s 10.8 informati 2017 6:10 [#/volume on in AM [...] No Sep 11 a informa informa informa 2016 [Presen tion in tion in tion in 9:30 AM ce] in source source source Urine data data data sedimen t by Light microsc opy Bilirub NEGATIV NEG No No No Sep 11 in E informa informa informa 2016 [Presen tion [...] No Sep 11 [Mass/vol informati informati informati 2016 9:30 ume] in on in on in on in AM Urine by source source source Test data data data strip Ketones NEGATIV NEG mg/dL No No Sep 11 E informa informa 2016 [Presen tion in tion [...] No No Sep 11 nogen informa informa 2016 [Presen tion in tion [...] Sep 11 in E informa informa informa 2016 [Presen tion [...] No No Sep 11 E informa informa 2016 [Presen tion in tion [...] No No Sep 11 nogen informa informa 2016 [Presen tion in tion [...] ML/MIN No REFERENCE Sep 11 informati RANGE: 2017 8:10 glomerula on in >60 AM r [...] - 5.1 mmoL/L Normal No Sep 11 informati 2017 8:10 [Moles/vo on in AM lume] in source Serum or data Plasma Sodium 136 - 145 mmoL/L Normal No Sep 11 [Moles/vo informati 2017 8:10 lume] in on in AM Serum or source Plasma data Aspartate 15 - 37 U/L High No Sep 11 informati 2017 8:10 aminotran on in AM sferase source [Enzymati data c activity/ volume] in Serum or Plasma Alanine 12 - 78 U/L Normal No Sep 11 aminotran informati 2017 8:10 sferase on in AM [Enzymati source [...] 0.2 K/MM3 Normal No Sep 11 informati 2017 8:10 [#/volume on in AM ] in source Blood by data Automated count Basophils 0.1 - 2.0 % Normal No Sep 11 /100 informati 2017 8:10 leukocyte on in AM [...] No Sep 11 t [Volume 52.0 informati 2017 8:10 on in AM Fraction] source of Blood data Hemoglobi 14.1 - g/dL Low No Sep 11 n 18.0 informati 2016 8:10 [Mass/vol on in AM ume] in source Blood data Lymphocyt 0.7 - 4.5 K/mm3 Normal No Sep 11 es informati 2016 8:10 [#/volume on in AM ] in source Unspecifi data ed specimen by Automated count Lymphocyt 10 - 50 % Normal No Sep 11 es informati 2016 8:10 [#/volume on in AM ] in source Unspecifi data ed specimen by Automated count Erythrocy 27 - 31.2 pg Normal No Sep 11 te mean informati 2016 8:10 corpuscul on in AM ar source hemoglobi data n [Entitic mass] Erythrocy 31.8 - g/dl Normal No Sep 11 te mean 35.4 informati 2017 8:10 corpuscul on in AM ar source hemoglobi data n concentra tion [Mass/vol ume] by Automated count Erythrocy 82.2 - fl Normal No Sep 11 te mean 97.8 informati 2016 8:10 corpuscul on in AM ar volume source [Entitic data volume] by Automated count Monocytes 0.1 - 1.0 K/mm3 Normal No Sep 11 informati 2017 8:10 [#/volume on in AM ] in source Blood by data Automated count Monocytes 1.7 - 9.3 % Normal No Sep 11 /100 informati 2017 8:10 leukocyte on in AM s in source Blood by data Automated count Platelet 7.4 - fl Normal No Sep 11 mean 10.4 informati 2016 8:10 volume on in AM [Entitic source volume] data in Blood by Automated count Platelets 142 - 424 K/mm3 Normal No Sep 11 informati 2017 8:10 [#/volume on in AM ] in source Blood data Erythrocy 4.6 - 6.2 M/mm3 Low No Sep 11 jefe informati 2017 8:10 [#/volume on in AM ] in source Amniotic data fluid Erythrocy 11.5 - % Normal No Sep 11 te 17.5 informati 2016 8:10 distribut on in AM ion width source [Entitic data volume] by Automated count Leukocyte 4.8 - K/MM3 High No Sep 11 s 10.8 informati 2016 8:10 [#/volume on in AM ] in source Blood data
--- OUTSIDE RECORDS SUMMARY | 2017-06-14 08:53 | External Medical Summary Rpt ---
[...] Date tion ce etation Range COMMENTS TO DIE REPAIRER FORGING: PER [place] PROTOCOL Cholester < 200 mg/dL No No [...]
--- NOTE | 2017-06-14 08:54 | Emergency Room Report ---
History of Present Illness Time Seen by MD Norris Presenting Problem in Triage Pt arrived:Ambulance Stretcher Presenting Problem:[facility] REPORTS THAT PT HAS HAD BLOODY STOOLS. 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 N Clinical Suspician of Infection? N Mental Status: 1 - Regular (Normal Baseline) Sepsis Risk:Low Sepsis Risk Have you (or family members/close friends) recently traveled outside the [place]? N If Yes, where/when: Have you had exposure to infectious disease within the past month? N TB? Other? Specify: NH states patient has dark stools. EMS states that on their arrival, the patient was reluctant to be transported as he had no complaints. He has chronic ulcers. He has chronic blood stools. He has chronic anemia with H/H usually in the mid 20's on review of [place] records. He denies abdominal pain today. He has chronic right hip pain. He is on ASA and Plavix, with recent ED visit for hallucinations , which are gone since the EDMD recommend d/c Buspar, which was done. He is DNR, confirmed with review of [place] papers. ALLERGIES Coded Allergies: BANANAS (FOOD) (05/01/17) Cantaloupe (05/10/17) watermelon (05/10/17) Home Medications Active Scripts Atorvastatin Calcium (Atorvastatin) 40 MG PO QHS #30 TAB Ref 11 Prov: 05/04/17 HYDROCODONE/ACETAMINOPHEN ([place] 5-325 Tablet) 1 TAB PO Q4HP PRN MODERATE TO SEVERE PAIN #120 TAB Prov: 05/04/17 Carvedilol 3.125 MG PO BID #60 TAB Ref 2 Prov: 05/10/17 Clopidogrel Bisulfate (Plavix) 75 MG PO DAILY #30 TAB Ref 5 Prov: 05/10/17 Potassium Chloride (Klor-Con M20) 20 MEQ PO BID #60 TER Ref 2 Prov: 05/11/17 Reported Medications METRONIDAZOLE (Metronidazole) 500 MG PO TID ASPIRIN (Aspirin) 81 MG PO DAILY MULTIVITAMIN (Daily Multiple Vitamin) 1 TAB PO DAILY Amlodipine Besylate (Amlodipine) 5 MG PO DAILY History Medical History General CAD? No Angina: No ME: No Hypertension? Yes Hyperlipidemia? No CHF? No DVT? No PE? No COPD? No Asthma? No Anemia? No GERD? No Gastric ulcers? No GI Bleed? No Hernia? No Thyroid Problems? No Hypothyroidism? No CVA? No Seizures? Yes Diabetes? No Renal Insuffiency? No End Stage Renal Disease? No UTI? No Stones? No BPH? No GB Disease: No Nephritic Syndrome? No Asplenia? No Hepatitis? No Sickle Cell Disease? No Arthritis? No Migraines? No Cataracts? No Glaucoma? No MRSA? No HIV? No TB? No Anxiety? No Depression? No Cancer? No More? No Immunization Hx DT/Tetanus Unknown Flu Refused Pneumonia Refuses Surgical Hx Previous Surgery?Y MASTOID CAROTID CARDIAC STENTS X3 Family History Family Hx Diabetes No CAD Yes Hypertension Yes Hyperlipidemia Yes Cancer No TB No Social History Smoking Hx Smoker: Never Smoker Tobacco: No Packs/day < 1 Pack Alcohol Alcohol: No Review of Systems All Other Systems Reviewed and Negative Musculoskeletal see HPI Psychiatric/Neurological denies see HPI Physical Exam Vital Signs Vital Signs Date Time Temp Pulse Resp B/P Pulse O2 O2 Flow FiO2 Ox Delivery Rate 06/14 0951 98.1 74 16 120/57 95 06/14 0944 98.1 74 16 120/57 95 06/14 0842 98.1 85 16 100/64 95 General Appearance normal appearance, WD/WN, no apparent distress (very alert, engaged,conversant) Eye Exam - bilateral eye normal exam (somewhat constricted pupils), bilateral eye PERRL, bilateral eye EOMI Neck normal inspection, non-tender, supple, full range of motion Respiratory Status Yes: trachea midline, chest symmetrical, non tender chest. No: respiratory distress, tender on palpation, use of accessory muscles, pain on inspiration, pain on expiration, productive cough, non productive cough. Lung Sounds bilateral: normal breath sounds, lungs clear. Cardiovascular normal exam, regular rate/rhythm, no peripheral edema, no gallop, no JVD, no murmur, no rub, normal peripheral pulses Gastrointestinal normal bowel sounds, normal exam, non tender, soft, no organomegaly, no pulsatile mass (has AAA/no intervention), no rebound, rebound Extremities non-tender, normal range of motion, normal inspection, normal capillary refill, no calf tenderness, no pedal edema (no ecchymosis or trauma) Strength 4 Upper Ext (L), 4 Upper Ext (R), 4 Lower Ext (L), 4 Lower Ext (R) Neurologic alert, digital account manager II-XII nml as tested, normal exam, no motor/sensory deficits, oriented x 3, no tremor; extremely alert; speech clear and fluent, nonfocal exam. Glascow Coma Scale Glascow Coma Scale Response Value EYE response: 4 Spontaneously 4 MOTOR response: 6 OBEYS 6 VERBAL response: 5 Oriented & Converses 5 Total 15 Skin intact, warm/dry, pallor Medical Decision Making LABS/Meds/Orders Pt receiving controlled substance in ED? No Results/Orders Laboratory Tests 06/14/17 0850: Sodium 139, Potassium 5.4 H, Chloride 104, Carbon Dioxide 23, BUN 88 H, Creatinine 3.1 H, Estimated Creat Clear 19 L, Estimated GFR (MDRD) 19, Glucose 140 H, Calcium 10.3 H, Total Bilirubin 0.4, AST 17, ALT 14, Alkaline Phosphatase 118 H, Total Protein 6.9, Albumin 3.0 L, Globulin 3.9 H, Albumin/ Globulin Ratio 0.8 L, WBC 13.5 H, RBC 3.10 L, Hgb 9.2 L, Hct 29.3 L, MCV 94.5, RDW 15.8, Plt Count 233, MPV 9.0, Gran % 83.5 H, Gran # 11.3 H, Lymphocytes % 11.2, Monocytes % 4.9, Eosinophils % 0.1, Basophils % 0.3, Lymphocytes # 1.5, Monocytes # 0.7, Eosinophils # 0.0, Basophils # 0.0, PUBS MCHC 31.4 L, MCH 29.7 Current Medication Orders Sig/David Start time Last Medication Dose Route Stop Time Status Admin Sodium Chloride 10 ML PRN PRN 06/14 09 DCD IV 06/15 857 Orders Procedure Date/time Status IV SALINE LOCK 06/14 857 Active CBC WITH AUTO DIFF 06/14 08 Complete CHEM 12 PROFILE 06/14 849 Complete Consult MD Physician Consult Time Called 09 Reason Pt. Condition Comments Aida reviewed labs, examined pt., spoke w/ family; she will call [place] with IVF hydration orders. She states pt has AAA with no repair per d/w pt. Chronically blood stools. Recent ME; she will consult Cardiology regarding possible d/c of either Plavix or ASA. Departure Departure Time of Disposition 926 Disposition DC Home or Self Care(routine) Clinical Impression Primary Impression: Chronic anemia Secondary Impressions: Dehydration Condition STABLE Referrals Ameena BAUTISTA,Nicanor Nava (Family) Patient Instructions DI for Dehydration -- Adult Additional Instructions Aida Bear CLOTH PATTERN MAKER with Dr. Lindquist will call the NH and give them rehydration orders; per her d/w the patient's as well as patient, Aida will call NH and get Hospice involved. Patient does not want a lot of medical intervention at this point. Discharge Counseling Counseled pt/family regarding diagnosis, test results, medications/RX, home care, follow up needs ED Critical Care [place] [address]997
--- NOTE | 2017-06-14 08:54 | Emergency Room Report ---
History of Present Illness Time Seen by MD Norris Presenting Problem in Triage Pt arrived:Ambulance Stretcher Presenting Problem:RESIDENTIAL REPORTS THAT PT HAS HAD BLOODY STOOLS. 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 N Clinical Suspician of Infection? N Mental Status: 1 - Regular (Normal Baseline) Sepsis Risk:Low Sepsis Risk Have you (or family members/close friends) recently traveled outside the [place]? N If Yes, where/when: Have you had exposure to infectious disease within the past month? N TB? Other? Specify: NH states patient has dark stools. EMS states that on their arrival, the patient was reluctant to be transported as he had no complaints. He has chronic ulcers. He has chronic blood stools. He has chronic anemia with H/H usually in the mid 20's on review of [place] records. He denies abdominal pain today. He has chronic right hip pain. He is on ASA and Plavix, with recent ED visit for hallucinations , which are gone since the EDMD recommend d/c Buspar, which was done. He is DNR, confirmed with review of [place] papers. ALLERGIES Coded Allergies: BANANAS (FOOD) (05/01/17) Cantaloupe (05/10/17) watermelon (05/10/17) Home Medications Active Scripts Atorvastatin Calcium (Atorvastatin) 40 MG PO QHS #30 TAB Ref 11 Prov: 05/04/17 HYDROCODONE/ACETAMINOPHEN ([place] 5-325 Tablet) 1 TAB PO Q4HP PRN MODERATE TO SEVERE PAIN #120 TAB Prov: 05/04/17 Carvedilol 3.125 MG PO BID #60 TAB Ref 2 Prov: 05/10/17 Clopidogrel Bisulfate (Plavix) 75 MG PO DAILY #30 TAB Ref 5 Prov: 05/10/17 Potassium Chloride (Klor-Con M20) 20 MEQ PO BID #60 TER Ref 2 Prov: 05/11/17 Reported Medications METRONIDAZOLE (Metronidazole) 500 MG PO TID ASPIRIN (Aspirin) 81 MG PO DAILY MULTIVITAMIN (Daily Multiple Vitamin) 1 TAB PO DAILY Amlodipine Besylate (Amlodipine) 5 MG PO DAILY History Medical History General CAD? No Angina: No [place]: No Hypertension? Yes Hyperlipidemia? No CHF? No DVT? No PE? No COPD? No Asthma? No Anemia? No GERD? No Gastric ulcers? No GI Bleed? No Hernia? No Thyroid Problems? No Hypothyroidism? No CVA? No Seizures? Yes Diabetes? No Renal Insuffiency? No End Stage Renal Disease? No UTI? No Stones? No BPH? No GB Disease: No Nephritic Syndrome? No Asplenia? No Hepatitis? No Sickle Cell Disease? No Arthritis? No Migraines? No Cataracts? No Glaucoma? No MRSA? No HIV? No TB? No Anxiety? No Depression? No Cancer? No More? No Immunization Hx DT/Tetanus Unknown Flu Refused Pneumonia Refuses Surgical Hx Previous Surgery?Y MASTOID CAROTID CARDIAC STENTS X3 Family History Family Hx Diabetes No CAD Yes Hypertension Yes Hyperlipidemia Yes Cancer No TB No Social History Smoking Hx Smoker: Never Smoker Tobacco: No Packs/day < 1 Pack Alcohol Alcohol: No Review of Systems All Other Systems Reviewed and Negative Musculoskeletal see HPI Psychiatric/Neurological denies see HPI Physical Exam Vital Signs Vital Signs Date Time Temp Pulse Resp B/P Pulse O2 O2 Flow FiO2 Ox Delivery Rate 06/14 0951 98.1 74 16 120/57 95 06/14 0944 98.1 74 16 120/57 95 06/14 0842 98.1 85 16 100/64 95 General Appearance normal appearance, WD/WN, no apparent distress (very alert, engaged,conversant) Eye Exam - bilateral eye normal exam (somewhat constricted pupils), bilateral eye PERRL, bilateral eye EOMI Neck normal inspection, non-tender, supple, full range of motion Respiratory Status Yes: trachea midline, chest symmetrical, non tender chest. No: respiratory distress, tender on palpation, use of accessory muscles, pain on inspiration, pain on expiration, productive cough, non productive cough. Lung Sounds bilateral: normal breath sounds, lungs clear. Cardiovascular normal exam, regular rate/rhythm, no peripheral edema, no gallop, no JVD, no murmur, no rub, normal peripheral pulses Gastrointestinal normal bowel sounds, normal exam, non tender, soft, no organomegaly, no pulsatile mass (has AAA/no intervention), no rebound, rebound Extremities non-tender, normal range of motion, normal inspection, normal capillary refill, no calf tenderness, no pedal edema (no ecchymosis or trauma) Strength 4 Upper Ext (L), 4 Upper Ext (R), 4 Lower Ext (L), 4 Lower Ext (R) Neurologic alert, stogie packer II-XII nml as tested, normal exam, no motor/sensory deficits, oriented x 3, no tremor; extremely alert; speech clear and fluent, nonfocal exam. Glascow Coma Scale Glascow Coma Scale Response Value EYE response: 4 Spontaneously 4 MOTOR response: 6 OBEYS 6 VERBAL response: 5 Oriented & Converses 5 Total 15 Skin intact, warm/dry, pallor Medical Decision Making LABS/Meds/Orders Pt receiving controlled substance in ED? No Results/Orders Laboratory Tests 06/14/17 0850: Sodium 139, Potassium 5.4 H, Chloride 104, Carbon Dioxide 23, BUN 88 H, Creatinine 3.1 H, Estimated Creat Clear 19 L, Estimated GFR (MDRD) 19, Glucose 140 H, Calcium 10.3 H, Total Bilirubin 0.4, AST 17, ALT 14, Alkaline Phosphatase 118 H, Total Protein 6.9, Albumin 3.0 L, Globulin 3.9 H, Albumin/ Globulin Ratio 0.8 L, WBC 13.5 H, RBC 3.10 L, Hgb 9.2 L, Hct 29.3 L, MCV 94.5, RDW 15.8, Plt Count 233, MPV 9.0, Gran % 83.5 H, Gran # 11.3 H, Lymphocytes % 11.2, Monocytes % 4.9, Eosinophils % 0.1, Basophils % 0.3, Lymphocytes # 1.5, Monocytes # 0.7, Eosinophils # 0.0, Basophils # 0.0, PUBS MCHC 31.4 L, MCH 29.7 Current Medication Orders Sig/David Start time Last Medication Dose Route Stop Time Status Admin Sodium Chloride 10 ML PRN PRN 06/14 09 DCD IV 06/15 857 Orders Procedure Date/time Status IV SALINE LOCK 06/14 857 Active CBC WITH AUTO DIFF 06/14 08 Complete CHEM 12 PROFILE 06/14 849 Complete Consult MD Physician Consult Time Called 09 Reason Pt. Condition Comments Aida reviewed labs, examined pt., spoke w/ family; she will call [place] with IVF hydration orders. She states pt has AAA with no repair per d/w pt. Chronically blood stools. Recent OH; she will consult Cardiology regarding possible d/c of either Plavix or ASA. Departure Departure Time of Disposition 926 Disposition DC Home or Self Care(routine) Clinical Impression Primary Impression: Chronic anemia Secondary Impressions: Dehydration Condition STABLE Referrals Ameena BAUTISTA,Nicanor Nava (Family) Patient Instructions DI for Dehydration -- Adult Additional Instructions Aida Bear OIL HEATER INSTALLER with Dr. Lindquist will call the NH and give them rehydration orders; per her d/w the patient's as well as patient, Aida will call NH and get Hospice involved. Patient does not want a lot of medical intervention at this point. Discharge Counseling Counseled pt/family regarding diagnosis, test results, medications/RX, home care, follow up needs ED Critical Care Critical Care No at 0952
[2017-06-14 09:08] LABS: HEMOGLOBIN 9.2 g/dL (14.1-18.0); LYMPH # 1.5 K/mm3 (0.7-4.5); LYMPH % 11.2 % (10-50)
[2017-06-14 09:51] VITALS: BP 120/57
== END 2017-06-14 09:53 | disposition home or self-care (01) ==
LOC: ER 08:38
PROVIDERS: Emergency Medicine
DX: D50.0 Iron deficiency anemia secondary to blood loss (chronic) (principal); E86.0 Dehydration; I10 Essential (primary) hypertension; Z79.82 Long term (current) use of aspirin; G89.29 Other chronic pain; M25.551 Pain in right hip

== ENCOUNTER 2017-06-15 14:40 | Inpatient (IN) | payer MEDICARE, OTHER ==
[~2017-06-15] VITALS: Ht 180.3 cm; Wt 67.3 kg
[2017-06-15] VITALS (19 sets, daily range): BP systolic 110–132; BP diastolic 52–71
--- NOTE | 2017-06-15 17:16 | HISTORY AND PHYSICAL REPORT ---
Demographics: Admit date: 06/15/17 Chief complaint: Blood in stool PRIMARY DIAGNOSIS: ANEMIA Allergies: Coded Allergies: BANANAS (FOOD) (05/01/17) Cantaloupe (05/10/17) watermelon (05/10/17) History of present illness: History of present illness: 86-year-old male who on June 14 was seen in the emergency department after he was reported he passed a large amount of blood when having a bowel movement at the [facility] where he resides. Patient was discharged back to the half-way from the emergency department and follow-up labs were performed this morning. Patient's hemoglobin had dropped from just above 9-7.4. Patient has been admitted for transfusion. Patient himself reports periodic blood in his stools as far back as January of this year. Patient's comorbidities include an abdominal aortic aneurysm as well as chronic kidney disease and coronary artery disease with recent myocardial infarction in April of this year. Patient is on both aspirin and Plavix Past medical history: Family HX Family Hx Insignificant No Diabetes Yes CAD Yes Hypertension No Hyperlipidemia No Cancer No TB No Immunization HX DT/Tetanus Unknown Flu Refused Pneumonia Unknown TB Test in last year Yes Result Negative General CAD? No Angina: No [place]: No Hypertension? Yes Hyperlipidemia? No CHF? No DVT? No PE? No COPD? No Asthma? No Anemia? No GERD? No Gastric ulcers? No GI Bleed? No Hernia? No Thyroid Problems? No Hypothyroidism? No CVA? No Seizures? Yes Diabetes? No Renal Insuffiency? No UTI? No Stones? No BPH? No GB Disease: No Nephritic Syndrome? No Asplenia? No Hepatitis? No Sickle Cell Disease? No Arthritis? No Migraines? No Cataracts? No Glaucoma? No MRSA? No HIV? No TB? No Anxiety? No Depression? No Cancer? No More? No Past Surgical HX Previous Surgery?Y MASTOID CAROTID CARDIAC STENTS X3 Current home meds: Active Scripts Atorvastatin Calcium (Atorvastatin) 40 MG PO QHS #30 TAB Ref 11 Prov: 05/04/17 HYDROCODONE/ACETAMINOPHEN ([place] 5-325 Tablet) 1 TAB PO Q4HP PRN MODERATE TO SEVERE PAIN #120 TAB Prov: 05/04/17 Carvedilol 3.125 MG PO BID #60 TAB Ref 2 Prov: 05/10/17 Clopidogrel Bisulfate (Plavix) 75 MG PO DAILY #30 TAB Ref 5 Prov: 05/10/17 Potassium Chloride (Klor-Con M20) 20 MEQ PO BID #60 TER Ref 2 Prov: 05/11/17 Reported Medications METRONIDAZOLE (Metronidazole) 500 MG PO TID ASPIRIN (Aspirin) 81 MG PO DAILY MULTIVITAMIN (Daily Multiple Vitamin) 1 TAB PO DAILY Amlodipine Besylate (Amlodipine) 5 MG PO DAILY Social Hx: Smoking HX Tobacco No Alcohol Alcohol: No Hx of Drug Use Drug Use? No Patien't marital status is Patient's support system is good Review of systems: Constitutional no symptoms reported. Respiratory no symptoms reported. Cardiovascular no symptoms reported Gastrointestinal/Abdominal see HPI Genitourinary no symptoms reported. Musculoskeletal no symptoms reported. Neurological Yes: no symptoms reported. Exam: Admission vital signs: 1ST Vital Signs Result Date Time Pulse Ox 98 06/15 1632 O2 Delivery ROOM AIR 06/15 1632 B/P 126/56 06/15 1632 Temp 97.9 06/15 1632 Pulse 75 06/15 1632 Resp 20 06/15 1632 Exam General appearance: alert, awake, no acute distress Cardiovascular: regular rate & rhythm Respiratory: clear to auscultation, good air movement, normal breath sounds ABD: soft, no tenderness, bowel sounds present, rectal exam reveals normal rectal tone with stool in the rectal vault but no palpable masses or hemorrhoids Skin: stage I sacral decubitus ulcer Plan: Problem List 1. Lower gastrointestinal bleed 2. Chronic anemia 3. Dehydration 4. Abdominal aortic aneurysm 5. Moderate mitral regurgitation 6. Chronic kidney disease Plan: Admit for type and cross and transfusion of at least one unit of packed red blood cells. Another unit has been placed on hold. Aspirin and Plavix will be held and patient be given Lovenox. Carvedilol has been reordered for the morning. at 1715
--- NOTE | 2017-06-15 17:16 | HISTORY AND PHYSICAL REPORT ---
Demographics: Admit date: 06/15/17 Chief complaint: Blood in stool PRIMARY DIAGNOSIS: ANEMIA Allergies: Coded Allergies: BANANAS (FOOD) (05/01/17) Cantaloupe (05/10/17) watermelon (05/10/17) History of present illness: History of present illness: 86-year-old male who on June 14 was seen in the emergency department after he was reported he passed a large amount of blood when [facility] the [facility] from the emergency department and follow-up labs were performed this morning. Patient's hemoglobin had dropped from just above 9-7.4. Patient has been admitted for transfusion. Patient himself reports periodic blood in his stools as far back as January of this year. Patient's comorbidities include an abdominal aortic aneurysm as well as chronic kidney disease and coronary artery disease with recent myocardial infarction in April of this year. Patient is on both aspirin and Plavix Past medical history: Family HX Family Hx Insignificant No Diabetes Yes CAD Yes Hypertension No Hyperlipidemia No Cancer No TB No Immunization HX DT/Tetanus Unknown Flu Refused Pneumonia Unknown TB Test in last year Yes Result Negative General CAD? No Angina: No [place]: No Hypertension? Yes Hyperlipidemia? No CHF? No DVT? No PE? No COPD? No Asthma? No Anemia? No GERD? No Gastric ulcers? No GI Bleed? No Hernia? No Thyroid Problems? No Hypothyroidism? No CVA? No Seizures? Yes Diabetes? No Renal Insuffiency? No UTI? No Stones? No BPH? No GB Disease: No Nephritic Syndrome? No Asplenia? No Hepatitis? No Sickle Cell Disease? No Arthritis? No Migraines? No Cataracts? No Glaucoma? No MRSA? No HIV? No TB? No Anxiety? No Depression? No Cancer? No More? No Past Surgical HX Previous Surgery?Y MASTOID CAROTID CARDIAC STENTS X3 Current home meds: Active Scripts Atorvastatin Calcium (Atorvastatin) 40 MG PO QHS #30 TAB Ref 11 Prov: 05/04/17 HYDROCODONE/ACETAMINOPHEN ([place] 5-325 Tablet) 1 TAB PO Q4HP PRN MODERATE TO SEVERE PAIN #120 TAB Prov: 05/04/17 Carvedilol 3.125 MG PO BID #60 TAB Ref 2 Prov: 05/10/17 Clopidogrel Bisulfate (Plavix) 75 MG PO DAILY #30 TAB Ref 5 Prov: 05/10/17 Potassium Chloride (Klor-Con M20) 20 MEQ PO BID #60 TER Ref 2 Prov: 05/11/17 Reported Medications METRONIDAZOLE (Metronidazole) 500 MG PO TID ASPIRIN (Aspirin) 81 MG PO DAILY MULTIVITAMIN (Daily Multiple Vitamin) 1 TAB PO DAILY Amlodipine Besylate (Amlodipine) 5 MG PO DAILY Social Hx: Smoking HX Tobacco No Alcohol Alcohol: No Hx of Drug Use Drug Use? No Patien't marital status is Patient's support system is good Review of systems: Constitutional no symptoms reported. Respiratory no symptoms reported. Cardiovascular no symptoms reported Gastrointestinal/Abdominal see HPI Genitourinary no symptoms reported. Musculoskeletal no symptoms reported. Neurological Yes: no symptoms reported. Exam: Admission vital signs: 1ST Vital Signs Result Date Time Pulse Ox 98 06/15 1632 O2 Delivery ROOM AIR 06/15 1632 B/P 126/56 06/15 1632 Temp 97.9 06/15 1632 Pulse 75 06/15 1632 Resp 20 06/15 1632 Exam General appearance: alert, awake, no acute distress Cardiovascular: regular rate & rhythm Respiratory: clear to auscultation, good air movement, normal breath sounds ABD: soft, no tenderness, bowel sounds present, rectal exam reveals normal rectal tone with stool in the rectal vault but no palpable masses or hemorrhoids Skin: stage I sacral decubitus ulcer Plan: Problem List 1. Lower gastrointestinal bleed 2. Chronic anemia 3. Dehydration 4. Abdominal aortic aneurysm 5. Moderate mitral regurgitation 6. Chronic kidney disease Plan: Admit for type and cross and transfusion of at least one unit of packed red blood cells. Another unit has been placed on hold. Aspirin and Plavix will be held and patient be given Lovenox. Carvedilol has been reordered for the morning. at 1715
[2017-06-15 19:50] LABS: HEMOGLOBIN 7.4 g/dL (14.1-18.0)
[2017-06-15 20:04] LABS: ABO BLOOD TYPE O; RH BLOOD TYPE POSITIVE
[2017-06-15 20:05] LABS: ANTIHUMAN GLOB CROSSMATCH COMPAT
[2017-06-15 20:06] LABS: ANTIHUMAN GLOB CROSSMATCH COMPAT
[2017-06-16] VITALS (10 sets, daily range): BP systolic 117–137; BP diastolic 56–61
[2017-06-16 03:59] LABS: HEMOGLOBIN 8.7 g/dL (14.1-18.0)
[2017-06-16 06:58] LABS: HEMOGLOBIN 8.9 g/dL (14.1-18.0); LYMPH # 2.2 K/mm3 (0.7-4.5)
--- NOTE | 2017-06-16 07:10 | ACUTE CARE PROGRESS NOTE (QUA) ---
Progress Notes Subjective Date 06/16/17 Time 0707 Note Patient complained of pain all over his body overnight. He was medicated with narcotic pain medication. Patient ultimately received 2 units of packed red blood cells yesterday evening. Post transfusion hemoglobin was 8.7. Patient did not have any bowel movements overnight. This morning he tells me he is "laying in a mess". Patient is resting in bed. Abdomen is soft and nontender. Plan will be for colonoscopy Monday by Dr. Martinez. Plavix will be held until then aspirin will be continued Objective Findings Last VS-Temp:98.2 B/P:135/58 Pulse:64 Resp:18 SaO2:98 ROOM AIR Last weight lbs:148 oz:6 K.302 Method:Bed Scales Laboratory Tests 06/16/17 0620: Sodium 141, Potassium 4.1, Chloride 108 H, Carbon Dioxide 25, BUN 73 H, Creatinine 2.6 H, Estimated Creat Clear 19 L, Estimated GFR (MDRD) 23, Glucose 109 H, Calcium 9.1, WBC 11.4 H, RBC 2.98 L, Hgb 8.9 L, Hct 27.7 L, MCV 92.8 , RDW 16.3, Plt Count 164, MPV 8.7, Gran % 71.2, Gran # 8.1 H, Lymphocytes % 19.0, Monocytes % 6.4, Eosinophils % 2.7, Basophils % 0.7, Lymphocytes # 2.2, Monocytes # 0.7, Eosinophils # 0.3, Basophils # 0.1, PUBS MCHC 32.3, MCH 29.9 06/16/17 0345: Hgb 8.7 L, Hct 27.2 L 06/15/172021: Misc Test Units BLOOD UNIT RELEASE 06/15/171928: Hgb 7.4 *L, Hct 23.0 *L 06/15/17 1705: Antibody Screen NEGATIVE, Miscellaneous Test POSITIVE Assessment/Plan Problem List 1. Lower gastrointestinal bleed 2. Chronic anemia 3. Dehydration 4. Abdominal aortic aneurysm 5. Moderate mitral regurgitation 6. Chronic kidney disease Patient condition Improving Plan: continue current care This inpt stay is expected to cross 2 MNs from start of care Yes at 0710
--- NOTE | 2017-06-16 07:24 | PHARMACY CLINIC NOTE ---
Patient Demographics Patient Demographics Admission date: 06/15/17 Date: 06/16/17 Time: 07 Allergies Coded Allergies: BANANAS (FOOD) (05/01/17) Cantaloupe (05/10/17) watermelon (05/10/17) HEIGHT- FT: 5 IN: 11.00 K.302 VTE General Information Labs: Laboratory Tests 06/16 06/16 06/15 0620 0345 1929 Hematology Hgb (14.1 - 18.0 g/dL) 8.9 L 8.7 L 7.4 *L Hct (42.0 - 52.0 %) 27.7 L 27.2 L 23.0 *L Plt Count (142 - 424 K/mm3) 164 Disclaimer The following section includes nursing documentation that has been pulled in for pharmacy review. Patient's VTE score: 3 Patient's VTE Risk: LOW RISK Clinical trial participant? No VTE prophylaxis [id number] VTE prophylaxis ordered? Yes Type of prophylaxis/treatment: Loverusselx at 0724
--- OUTSIDE RECORDS SUMMARY | 2017-06-16 12:47 | External Medical Summary Rpt | Continuity of Care Document ---
Author Author Organization Address Unknown Phone Unavailable Care Team Providers Care Educational Guidance Counselor Name Role Phone , Unavailable Unavailable EMS Current Medications Section EMS Allergies and Adverse Reactions EMS Past Medical History Medications Administered Section EMS Procedures Performed EMS Vital Signs EMS Patient Care Report Narrative [CHIEF COMPLAINT / RESPONSE] EC-2 was dispatched to [facility] for a patient that is unresponsive sitting on the toilet and bleeding. Unit responded emergently, with lights and sirens to the scene. Upon arrival at scene EC-2 found a 86 year old male sitting on facility bed waiting for EMS. The general impression of the patient was general weakness. The Chief Complaint for the patient is weakness. Upon assessment patient was alert and orientated times four and strongly refused EMS service. Grain Wafer Machine Operator Christiano told patient that his blood pressure was a little low and that he should go to the ER to get evaluated but patient still refused. Grain Wafer Machine Operator Christiano asked two more times and each time patient refused. Nurse on scene stated that he needs to go and that he is unresponsive. Grain Wafer Machine Operator Rios told the nurse that the patient has the right to refuse because he is his own POA and currently alert and orientated times four. Nurse was yelling at the patient saying that he needs to go and would not let patient sign a refusal form. Nurse then got frustrated, left the room and came back with nursing assistants teacher. Patient also told her that he did not want to go. After a while of the nurses telling the patient he needs to go the patient got frustrated and asked EMS to take him to the hospital. Patient was placed on EMS stretcher in a position of comfort and secured with seat belts and stretcher was secured into ambulance. Patient was positioned on stretcher in semi-fowlers position. [HISTORY OF PRESENT ILLNESS] History was obtained from patient and documentation. Nurse refused to give report other than chief complaint. Symptoms for the rectal bleeding started just prior to calling EMS. The half-way stated this is rare problem for the patient. The last time this occurred was unknown. This is a rare problem that is severe now. After evaluation of the patients chart the patient is a chronic anemic and recently diagnosed with kidney failure. Patient requests transport to Emergency Department for evaluation. [TREATMENTS ATTEMPTED PRIOR TO EMS ARRIVAL] No treatments were preformed prior to EMS arrival. [ASSESSMENT - PRIMARY] The Grain Wafer Machine Operator has performed a complete head to toe ALS assessment on the patient. MENTAL STATUS: Patient is conscious and alert. Patient is oriented to person, place, event and time. GCS of 15. This is normal for the patient. SKIN: [place], warm and dry HEENT/NEURO: Clear speech; Neuro assessment intact; No facial droop; No JVD; No loss of consciousness; No memory loss; Pupils were slightly constricted; Trachea mid-line; All else within normal limits. CHEST/RESPIRATORY: Airway patent; Equal chest rise; Lung sounds clear bilaterally; ABDOMEN/GI: Flat; Soft and non-tender. BACK: No abnormalities. Patient denies any neck or back pain PELVIC/: Pelvis stable; Unremarkable EXTREMITIES: Equal public transit specialist; Good pulse, motor function, and sensation in all extremities. [VITALS] : 103/58, 82 bpm, 18 rr, 99% ra; 106/63, 84 bpm, 18 rr, 99% ra; 110/62 , 81 bpm, 99% ra; 108/62, 80 bpm, 18 rr, 99% ra; 106/59, 80 bpm, 18 rr, 99% ra; 107/59, 78 bpm, 18 rr, 99% ra; 4 lead was preformed which showed the patient to be in a normal sinus rhythm [RX / TREATMENT] : No treatments were given to the patient. [ASSESSMENT - SECONDARY] An ongoing assessment was performed every 15 minutes. Patient states there is no change in patient condition. [TRANSPORT] Patient was transported without incident and without delay to [facility] ED. Patient moved from stretcher to emergency department bed via draw sheet. Patient care and report given to emergency department nurse Alisson Bro RN. Alisson Bro RN taking over patient care did not have any questions and received a patient report that included the patient's medications, chart, medical history and billing information. [DOCUMENTATION/HANDOFF]: Patient signed consent and HIPAA on paper form. Nurse signed for patient transfer of care on paper. Notice of Privacy Practices pamphlet was left with patient. [NECESSITY STATEMENT] : Patient was transported by EMS in an emergency situation due to weakness. [OTHER] : All times in this report are approximate. End report. German NRP [id number]
--- OUTSIDE RECORDS SUMMARY | 2017-06-16 12:47 | External Medical Summary Rpt | Continuity of Care Document ---
Author Author Organization Address Unknown Phone Unavailable Care Team Providers Care Duster Tender Name Role Phone , Unavailable Unavailable EMS Current Medications Section EMS Allergies and Adverse Reactions EMS Past Medical History Medications Administered Section EMS Procedures Performed EMS Vital Signs EMS Patient Care Report Narrative [CHIEF COMPLAINT / RESPONSE] EC[facility] was [facility] for [facility] patient that is unresponsive sitting [...] times four and strongly refused EMS service. Production Assembler Christiano told patient that his blood pressure was a little low and that he should go to the ER to get evaluated but patient still refused. Production Assembler Christiano asked two more times and each time patient refused. Nurse on scene stated that he needs to go and that he is unresponsive. Production Assembler Rios told the nurse that the patient has the right to refuse because he is his own POA and currently alert and orientated times four. Nurse was yelling at the patient saying that he needs to go and would not let patient sign a refusal form. Nurse then got frustrated, left the room and came back with manager nursing. Patient also told her that he did [...] started just prior to calling EMS. The assisted stated this is rare problem for the [...] to EMS arrival. [ASSESSMENT - PRIMARY] The Production Assembler has performed a complete head to toe ALS assessment on the patient. MENTAL STATUS: Patient is conscious and alert. Patient is oriented to person, place, event and time. GCS of 15. This is normal for the patient. SKIN: [place], warm and dry HEENT/NEURO: Clear speech; Neuro assessment intact; No facial droop; No JVD; No loss of consciousness; No memory loss; Pupils were slightly constricted; Trachea mid-line; All else within normal limits. CHEST/RESPIRATORY: Airway patent; Equal chest rise; Lung sounds clear bilaterally; ABDOMEN/GI: Flat; Soft and non-tender. BACK: No abnormalities. Patient denies any neck or back pain PELVIC/: Pelvis stable; Unremarkable EXTREMITIES: Equal commercial loan underwriter; Good pulse, motor function, and sensation in [...] transported without incident and without delay to [facility] ED. Patient moved from stretcher to emergency [...] report are approximate. End report. German NRP [id number]
--- OUTSIDE RECORDS SUMMARY | 2017-06-16 12:48 | External Medical Summary Rpt | CCD ---
Author Author , VIOLETTA Organization VIOLETTA Address Unknown Phone [email or web address] Purpose Continuity of Care Document - 03-29-2017 through 2016 Problems Code Diagnosis DOS Provider Status A04.7 ENTEROCOLIT IS DUE TO CLOSTRIDIUM DIFFICILE A04.72 ENTEROCOLIT IS D/T CLOSTRIDIUM DIFFICILE, NOT SPCF RECUR D64.9 ANEMIA, UNSPECIFIED E86.0 DEHYDRATION I21.4 NON-ST ELEVATION (NSTEMI) MYOCARDIAL INFARCTION J81.0 ACUTE PULMONARY EDEMA J96.01 ACUTE RESPIRATORY FAILURE WITH HYPOXIA N18.9 CHRONIC KIDNEY DISEASE, UNSPECIFIED N28.9 DISORDER OF KIDNEY AND URETER, UNSPECIFIED R41.0 DISORIENTAT ION, UNSPECIFIED R56.9 UNSPECIFIED CONVULSIONS R74.8 ABNORMAL LEVELS OF OTHER SERUM ENZYMES S72.141A DISPLACED INTERTROCHA NTERIC FRACTURE OF RIGHT FEMUR, INIT Results Labs Lab Lab Date Result Refere Interp Status Commen Order Detail nces retati t Range on Comprehensive metabolic panel (06-14-2017 08:50) Estimat 10-25-2 = 19 50-200 complet ion of 017 ML/MIN ed creatin 08:50 ine renal clearan ce Serum 25-2 = 3.1 0.70-1. complet or 017 mg/dL 30 ed plasma 08:50 creatin ine measure ment ( Carbon 1025-2 = 23 21.0-32 complet dioxide 017 mmoL/L .0 ed 08:50 measure ment Serum 1025-2 = 104 98-107 complet or 017 mmoL/L ed plasma 08:50 chlorid e measure ment (mo Serum 10-25-2 = 10.3 8.5-10. complet or 017 mg/dL 1 ed plasma 08:50 calcium measure ment (mas Serum 10-25-2 = 88 7-18 complet or 017 mg/dL ed plasma 08:50 urea nitroge n measure men Comment: NOTIFICATION RESULT Serum 10-25-2 = 0.4 0.2-1.0 complet or 017 mg/dL ed plasma 08:50 total bilirub in measure m Serum = 118 46-116 complet or 017 U/L ed plasma 08:50 alkalin e phospha tase [place] Serum = 3.0 3.4-5.0 complet or 017 gm/dL ed plasma 08:50 albumin measure ment (mas Serum = 0.8 1.1-1.8 complet or 017 ed plasma 08:50 albumin /globul in mass ra Protein = 6.9 6.4-8.2 complet total 017 gm/dL ed ser/sadia 08:50 s ALT = 14 12-78 complet (SGPT) 017 U/L ed ser/sadia 08:50 s Serum = 17 15-37 complet or 017 U/L ed plasma 08:50 asparta te aminotr ansfera Serum = 139 136-145 complet sodium 017 mmoL/L ed measure 08:50 ment Serum = 5.4 3.5-5.1 complet potassi 017 mmoL/L ed um 08:50 measure ment Serum = 140 74-106 complet or 017 mg/dL ed plasma 08:50 glucose measure ment (mas Serum = 3.9 1.3-3.2 complet globuli 017 gm/dL ed n 08:50 measure ment (mass/v olume) Estimat = 19 >60 complet ed 017 ML/MIN ed glomeru 08:50 lar filtrat ion rate (GF Comment: REFERENCE RANGE: >60 ML/MIN/1.73 SQUARE METERS Comment: If this patient is -Botswanan, then multiply the Comment: result by 1.210. CBC w auto diff (06-14-2017 08:50) Blood = 13.5 4.8-10. complet leukocy 017 K/MM3 8 ed jefe 08:50 count (number /volume ) Automat = 15.8 11.5-17 complet ed 017 % .5 ed erythro 08:50 cyte distrib ution width Red = 3.10 4.6-6.2 complet blood 017 M/mm3 ed cell 08:50 count Blood 1025-2 = 233 142-424 complet platele 017 K/mm3 ed t count 08:50 Automat = 9.0 7.4-10. complet ed 017 fl 4 ed blood 08:50 platele t mean volume [place] % = 4.9 % 1.7-9.3 complet 017 ed 08:50 Absolut 2 = 0.7 0.1-1.0 complet e 017 K/mm3 ed monocyt 08:50 e count Automat = 94.5 82.2-97 complet ed 017 fl .8 ed erythro 08:50 cyte mean corpusc ular v Automat = 31.4 31.8-35 complet ed 017 g/dl .4 ed erythro 08:50 cyte mean corpusc ular h Mean = 29.7 27-31.2 complet corpusc 017 pg ed ular 08:50 hemoglo bin (MCH) determ Lymphoc = 11.2 10-50 complet yte 017 % ed count, 08:50 blood, automat ed Absolut = 1.5 0.7-4.5 complet e 017 K/mm3 ed lymphoc 08:50 yte count Blood = 9.2 14.1-18 complet hemoglo 017 g/dL .0 ed bin 08:50 measure ment (mass/v olum Blood = 29.3 42.0-52 complet hematoc 017 % .0 ed rit 08:50 (volume fractio n) Granulo = 83.5 37.0-80 complet cyte 017 % .0 ed percent 08:50 age Blood = 11.3 1.3-8.0 complet granulo 017 K/mm3 ed cytes 08:50 automat ed count (numb Automat = 0.1 % 0.1-12. complet ed 017 0 ed blood 08:50 eosinop hils/10 0 leukocy t Automat = 0.0 0.0-0.4 complet ed 017 K/mm3 ed blood 08:50 eosinop hil count Baso % 10-25-2 = 0.3 % 0.1-2.0 complet 017 ed 08:50 Automat 06-14-2 = 0.0 0-0.2 complet ed 017 K/MM3 ed blood 08:50 basophi l count (count/ vo Comprehensive metabolic panel (05-28-2017 00:20) Protein = [...] SQUARE METERS Comment: If this patient is -Botswanan, then multiply the Comment: result by 1.210. [...] RESULTS Comment: RESULTS CALLED TO: Bridget SHAFER FIELD INSURANCE SALES MANAGER 05/28/17 0130 Comment: Tay Weiner Comment: > [...] jefe 00:20 count (number /volume ) Automat = 15.5 11.5-17 complet ed 017 % .5 ed erythro 00:20 cyte distrib ution width Red = 2.99 4.6-6.2 complet blood 017 M/mm3 ed cell 00:20 count Blood = 189 142-424 complet platele 017 K/mm3 ed t count 00:20 Automat = 9.2 7.4-10. complet ed 017 fl 4 ed blood 00:20 platele t mean volume [place] % = 9.1 % 1.7-9.3 complet 017 [...] % 0.1-2.0 complet 017 ed 00:20 Automat 10-08-2 = 0.1 0-0.2 complet ed 017 K/MM3 [...] SerPl-mCnc (03-29-2017 10:53) NT-proB 4620 0-1799 complet GAMEROOM TECHNICIAN 017 pg/mL ed SerPl-m 10:53 Cnc Lipase SerPl-cCnc (03-29-2017 10:53) Lipase 28 U/L 19-63 complet Kelll-c 017 ed [facility] 10:53
--- OUTSIDE RECORDS SUMMARY | 2017-06-16 12:48 | External Medical Summary Rpt | CCD ---
Author Author , VIOLETTA Organization VIOLETTA Address Unknown Phone [email or web address] Purpose Continuity of Care Document - 03-29-2017 [...] SQUARE METERS Comment: If this patient is -Kazakh, then multiply the Comment: result by 1.210. [...] blood 08:50 platele t mean volume deedee [place] % = 4.9 % 1.7-9.3 complet 017 [...] SQUARE METERS Comment: If this patient is -Kazakh, then multiply the Comment: result by 1.210. [...] RESULTS Comment: RESULTS CALLED TO: Bridget SHAFER OPERATOR AND TRUCK DRIVER 05/28/17 0130 Comment: Tay Weiner Comment: > [...] blood 00:20 platele t mean volume deedee [place] % = 9.1 % 1.7-9.3 complet 017 [...] SerPl-mCnc (03-29-2017 10:53) NT-proB 4620 0-1799 complet FORENSIC ENGINEER 017 pg/mL ed SerPl-m 10:53 Cnc Lipase SerPl-cCnc (03-29-2017 10:53) Lipase 28 U/L 19-63 complet Kelll-c 017 ed [facility] 10:53
--- OUTSIDE RECORDS SUMMARY | 2017-06-16 12:49 | External Medical Summary Rpt | CCD ---
Demographics Preferred Language Telugu Marital Status Unknown Catholic Affiliation Unknown Race Unknown Ethnic Group Unknown Author Author , VIOLETTA SHIPLEY Address Unknown Phone Immunization No patient found.
--- OUTSIDE RECORDS SUMMARY | 2017-06-16 12:49 | External Medical Summary Rpt | CCD ---
Demographics Preferred Language Yi Marital Status Unknown Buddhism Affiliation Unknown Race Unknown Ethnic Group Unknown Author Author , VIOLETTA SHIPLEY Address Unknown Phone Immunization No patient found.
--- OUTSIDE RECORDS SUMMARY | 2017-06-16 12:50 | External Medical Summary Rpt ---
Author Author VIOLETTA Bowers, VIOLETTA Production Organization [employer] Address Unknown Phone Unavailable Results Comprehensive metabolic 2000 panel in Serum or Plasma Observa Value Referen Units Interpr Notes Date tion ce etation Range Albumin/G 1.1 - 1.8 No Low No May 25 lobulin informati informati 2017 8:50 [Mass on in on in AM ratio] in source source Serum or data data Plasma Albumin 3.4 - 5.0 gm/dL Low No May 25 [Mass/vol informati 2017 8:50 ume] in on in AM Serum or source Plasma data Alkaline 46 - 116 U/L High No May 25 phosphata informati 2017 8:50 se on in AM [Enzymati source c data activity/ volume] in Serum or Plasma Bilirubin 0.2 - 1.0 mg/dL Normal No Jun 14 .total informati 2017 8:50 [Mass/vol on in AM ume] in source Serum or data Plasma Urea 7 - 18 mg/dL High Jun 14 nitrogen NOTIFICAT 2017 8:50 [Mass/vol ION AM ume] in RESULT Serum or Plasma Calcium 8.5 - mg/dL High No May 25 [Mass/vol 10.1 informati 2017 8:50 ume] in on in AM Serum or source Plasma data Chloride 98 - 107 mmoL/L Normal No May 25 [Moles/vo informati 2017 8:50 lume] in on in AM Serum or source Plasma data Carbon 21.0 - mmoL/L Normal No May 25 dioxide, 32.0 informati 2017 8:50 total on in AM [Moles/vo source lume] in data Serum or Plasma Creatinin 0.70 - mg/dL High No Oct 25 e 1.30 informati 2017 8:50 [Mass/vol on in AM ume] in source Serum or data Plasma Creatinin 50 - 200 ML/MIN Low No Oct 25 e renal informati 2017 8:50 clearance on in AM source predicted data by Cockcroft -Gault formula Estimated >60 ML/MIN No REFERENCE Oct 25 informati RANGE: 2017 8:50 glomerula on in >60 AM r source ML/MIN/1. filtratio data 73 SQUARE n rate METERSIf (GF this patient is -A merican, then multiply theresult by 1.210. Globulin 1.3 - 3.2 gm/dL High No Jun 14 [Mass/vol informati 2016 8:50 ume] in on in AM Serum source data Glucose 74 - 106 mg/dL High No Jun 14 [Mass/vol informati 2016 8:50 ume] in on in AM Serum or source Plasma data Potassium 3.5 - 5.1 mmoL/L High No Jun 14 informati 2016 8:50 [Moles/vo on in AM lume] in source Serum or data Plasma Sodium 136 - 145 mmoL/L Normal No Jun 14 [Moles/vo informati 2016 8:50 lume] in on in AM Serum or source Plasma data Aspartate 15 - 37 U/L Normal No Jun 14 inform2016 8:50 aminotran on in AM sferase source [Enzymati data c activity/ volume] in Serum or Plasma Alanine 12 - 78 U/L Normal No Jun 14 aminotran informati 2016 8:50 sferase on in AM [Enzymati source c data activity/ volume] in Serum or Plasma Protein 6.4 - 8.2 gm/dL Normal No Jun 14 [Mass/vol informati 2016 8:50 ume] in on in AM Serum or source Plasma data CBC W Auto Differential panel in Blood Observa Value Referen Units Interpr Notes Date tion ce etation Range Basophils 0 - 0.2 K/MM3 Normal No Jun 14 inform2016 8:50 [#/volume on in AM ] in source Blood by data Automated count Basophils 0.1 - 2.0 % Normal No Jun 14 /100 informati 2016 8:50 leukocyte on in AM s in source Blood by data Automated count Eosinophi 0.0 - 0.4 K/mm3 Normal No Jun 14 ls informati 2016 8:50 [#/volume on in AM ] in source Blood by data Automated count Eosinophi 0.1 - % Normal No Jun 14 ls/100 12.0 informati 2016 8:50 leukocyte on in AM s in source Blood by data Automated count Granulocy 1.3 - 8.0 K/mm3 High No Jun 14 jefe informati 2016 8:50 [#/volume on in AM ] in source Blood by data Automated count Granulocy 37.0 - % High No Jun 14 jefe/100 80.0 informati 2016 8:50 leukocyte on in AM s in source Blood by data Automated count Hematocri 42.0 - % Low No Jun 14 t [Volume 52.0 informati 2016 8:50 on in AM Fraction] source of Blood data Hemoglobi 14.1 - g/dL Low No Jun 14 n 18.0 informati 2016 8:50 [Mass/vol on in AM ume] in source Blood data Lymphocyt 0.7 - 4.5 K/mm3 Normal No Jun 14 es informati 2016 8:50 [#/volume on in AM ] in source Unspecifi data ed specimen by Automated count Lymphocyt 10 - 50 % Normal No Jun 14 es informati 2016 8:50 [#/volume on in AM ] in source Unspecifi data ed specimen by Automated count Erythrocy 27 - 31.2 pg Normal No Jun 14 te mean informati 2016 8:50 corpuscul on in AM ar source hemoglobi data n [Entitic mass] Erythrocy 31.8 - g/dl Low No Jun 14 te mean 35.4 informati 2016 8:50 corpuscul on in AM ar source hemoglobi data n concentra tion [Mass/vol ume] by Automated count Erythrocy 82.2 - fl Normal No Jun 14 te mean 97.8 informati 2016 8:50 corpuscul on in AM ar volume source [Entitic data volume] by Automated count Monocytes 0.1 - 1.0 K/mm3 Normal No Jun 14 informati 2016 8:50 [#/volume on in AM ] in source Blood by data Automated count Monocytes 1.7 - 9.3 % Normal No Jun 14 /100 informati 2016 8:50 leukocyte on in AM s in source Blood by data Automated count Platelet 7.4 - fl Normal No Jun 14 mean 10.4 informati 2016 8:50 volume on in AM [Entitic source volume] data in Blood by Automated count Platelets 142 - 424 K/mm3 Normal No Jun 14 informati 2016 8:50 [#/volume on in AM ] in source Blood data Erythrocy 4.6 - 6.2 M/mm3 Low No Jun 14 jefe informati 2016 8:50 [#/volume on in AM ] in source Amniotic data fluid Erythrocy 11.5 - % Normal No Jun 14 te 17.5 informati 2016 8:50 distribut on in AM ion width source [Entitic data volume] by Automated count Leukocyte 4.8 - K/MM3 High No May 25 s 10.8 informati 2016 8:50 [#/volume on in AM ] in source [...] 39 - 308 U/L Low No May 28 kinase informati 2016 [Enzymati on in 12:20 AM c source activity/ data volume] in Serum or Plasma Troponin 0.00 - ng/mL High May 28 I.cardiac 0.06 2017 CRITICAL 12:20 AM [Mass/vol RESULTS ume] in Serum or RESU Plasma LTS CALLED TO: Bridget SHAFER PRIMARY CLASS TEACHER 05/28/17 0130Spark sTay> 0.5 IS CONSISTEN T WITH MYOCARDIA L ISCHEMIA OR INFARCTIO N Comprehensive metabolic 2000 panel in Serum or Plasma Observa Value Referen Units Interpr Notes Date tion ce etation Range Albumin/G 1.1 - 1.8 No Low No May 28 lobulin informati informati 2016 [Mass on in on in 12:20 AM ratio] in source source Serum or data data Plasma Albumin 3.4 - 5.0 gm/dL Low No May 28 [Mass/vol informati 2016 ume] in on in 12:20 AM Serum or source Plasma data Alkaline 46 - 116 U/L Normal No May 28 phosphata informati 2016 se on in 12:20 AM [Enzymati source c data activity/ volume] in Serum or Plasma Bilirubin 0.2 - 1.0 mg/dL Normal No May 28 .total informati 2016 [Mass/vol on in 12:20 AM ume] in source Serum or data Plasma Urea 7 - 18 mg/dL High No Oct 8 nitrogen informati 2017 [Mass/vol on in 12:20 AM ume] in source Serum or data Plasma Calcium 8.5 - mg/dL Normal No May 8 [Mass/vol 10.1 informati 2016 ume] in on in 12:20 AM Serum or source Plasma data Chloride 98 - 107 mmoL/L High No May 8 [Moles/vo informati 2017 lume] in on in 12:20 AM Serum or source Plasma data Carbon 21.0 - mmoL/L Low No May 8 dioxide, 32.0 informati 2017 total on in 12:20 AM [Moles/vo source lume] in data Serum or Plasma Creatinin 0.70 - mg/dL High No May 8 e 1.30 informati 2016 [Mass/vol on in 12:20 AM ume] in source Serum or data Plasma Creatinin 50 - 200 ML/MIN Low No Oct 8 e renal informati 2017 clearance on in 12:20 AM source predicted data by Cockcroft -Gault formula Estimated >60 ML/MIN No REFERENCE May 8 informati RANGE: 2017 glomerula on in >60 12:20 AM r source ML/MIN/1. filtratio data 73 SQUARE n rate METERSIf (GF this patient is -A merican, then multiply theresult by 1.210. Globulin 1.3 - 3.2 gm/dL High No May 8 [Mass/vol informati 2016 ume] in on in 12:20 AM Serum source data Glucose 74 - 106 mg/dL High No May 8 [Mass/vol informati 2017 ume] in on in 12:20 AM Serum or source Plasma data Potassium 3.5 - 5.1 mmoL/L Normal No May 8 informati 2016 [Moles/vo on in 12:20 AM lume] in source Serum or data Plasma Sodium 136 - 145 mmoL/L Normal No Oct 8 [Moles/vo informati 2017 lume] in on in 12:20 AM Serum or source Plasma data Aspartate 15 - 37 U/L Normal No May 8 informati 2016 aminotran on in 12:20 AM sferase source [Enzymati data c activity/ volume] in Serum or Plasma Alanine 12 - 78 U/L Normal No Oct 8 aminotran informati 2016 sferase on in 12:20 AM [Enzymati source c data activity/ volume] in Serum or Plasma Protein 6.4 - 8.2 gm/dL Normal No May 28 [Mass/vol 2016 ume] in on in 12:20 AM Serum or source Plasma data CBC W Auto Differential panel in Blood Observa Value Referen Units Interpr Notes Date tion ce etation Range Basophils 0 - 0.2 K/MM3 Normal No May 282016 [#/volume on in 12:20 AM ] in source Blood by data Automated count Basophils 0.1 - 2.0 % Normal No May 282016 leukocyte on in 12:20 AM s in source Blood by data Automated count Eosinophi 0.0 - 0.4 K/mm3 Normal No May 28 ls 2016 [#/volume on in 12:20 AM ] [...] % Normal No May 28 jefe/100 80.0 2016 leukocyte on in 12:20 AM s in [...] pg Normal No May 28 te mean 2016 corpuscul on in 12:20 AM ar source hemoglobi data n [Entitic mass] Erythrocy 31.8 - g/dl Low No May 28 te mean 35.4 2016 corpuscul on in 12:20 AM ar source hemoglobi data n concentra tion [Mass/vol ume] by Automated count Erythrocy 82.2 - fl Normal No May 8 te mean 97.8 informati 2016 corpuscul on [...] Platelet 7.4 - fl Normal No May 8 mean 10.4 informati 2016 volume on in 12:20 AM [Entitic source volume] data in Blood by Automated count Platelets 142 - 424 K/mm3 No No May 28 informati informati 2016 [#/volume on in on in 12:20 AM ] in source source Blood data data Erythrocy 4.6 - 6.2 M/mm3 Low No May 8 jefe informati 2016 [#/volume on in 12:20 [...] - 5.1 mmoL/L Low alert Sep 21 2016 6:30 [Moles/vo CRITICAL AM lume] in RESULTS [...] Normal No Sep 21 ls/100 12.0 informati 2016 6:30 leukocyte on in AM s in source Blood by data Automated count Granulocy 1.3 - 8.0 K/mm3 Normal No Sep 21 jefe informati 2017 6:30 [#/volume on in AM ] in source Blood by data Automated count Granulocy 37.0 - % Normal No Sep 21 jefe/100 80.0 informati 2016 6:30 leukocyte on in AM s in [...] Plasma LTS CALLED TO: BRIGHT 05/10/17 0937 Craadarshaft, Elo> 0.5 IS CONSISTEN T WITH MYOCARDIA L ISCHEMIA OR INFARCTIO N Lipid 1996 panel in Serum or Plasma Observa Value Referen Units Interpr Notes Date tion ce etation Range COMMENTS TO FAMILY LAW ATTORNEY: PER AL PROTOCOL Cholester < 200 mg/dL No No Sep 20 ol informati informati 2017 2:10 [Moles/vo on in on in AM lume] in source source Unspecifi data data ed specimen Cholester 40 - 60 MG/DL Low No Sep 20 ol in HDL informati 2016 2:10 on in AM [Mass/vol source ume] in data Serum or Plasma Cholester 0 - 130 mg/dL Normal No Sep 20 ol in LDL informati 2016 2:10 on in AM [Mass/vol [...] TO: ADDIS Rose 05/10/17 0320 Rita Chua icthamlet Sodium 136 - 145 mmoL/L Low No [...] 2.0 % Normal No Sep 20 /100 inform2016 2:10 leukocyte on in AM s in [...] No Sep 20 t [Volume 52.0 informati 2016 2:10 on in AM Fraction] source of [...] No Sep 20 te mean 97.8 informati 2016 2:10 corpuscul on in AM ar volume source [Entitic data volume] by Automated count Monocytes 0.1 - 1.0 K/mm3 Normal No Sep 20 informati 2016 2:10 [...] K/mm3 No No Sep 20 informati informati 2016 2:10 [#/volume on in on in AM [...] K/mm3 High No Sep 13 jefe informati 2016 6:00 [...] Low No Sep 13 n 18.0 informati 2017 6:00 [Mass/vol on in AM [...] No Sep 13 te mean 35.4 informati 2017 6:00 corpuscul on in AM [...] M/mm3 Low No Sep 13 jefe informati 2017 6:00 [#/volume on in AM ] in source Amniotic data fluid Erythrocy 11.5 - % Normal No Sep 13 te 17.5 informati 2017 6:00 distribut on in AM ion width [...] Normal No Sep 12 ls/100 12.0 informati 2016 6:10 leukocyte on in AM s in [...] K/mm3 Normal No Sep 11 ls informati 2017 8:10 [#/volume on in AM [...] M/mm3 Low No Sep 11 jefe informati 2016 8:10 [#/volume on in AM [...]
--- OUTSIDE RECORDS SUMMARY | 2017-06-16 12:50 | External Medical Summary Rpt ---
[...] RESU Plasma LTS CALLED TO: Bridget SHAFER BELT PRESS OPERATOR 05/28/17 0130Spark sTay> 0.5 IS CONSISTEN T [...] Date tion ce etation Range COMMENTS TO SLIDE MACHINE TENDER: PER IN PROTOCOL Cholester < 200 mg/dL No No [...]
[2017-06-17 03:49] VITALS: BP 118/55
[2017-06-17 06:50] LABS: HEMOGLOBIN 9.6 g/dL (14.1-18.0); LYMPH # 1.8 K/mm3 (0.7-4.5); LYMPH % 19.2 % (10-50)
--- NOTE | 2017-06-17 07:46 | ACUTE CARE PROGRESS NOTE (QUA) ---
Progress Notes Subjective Date 06/17/17 Time 0745 Note Patient is pleasant, easily arousable, somewhat difficult to understand with slurred speech. Heart rate regular and lungs are clear. Abdomen is soft. Objective Findings Last VS-Temp:97.7 B/P:118/55 Pulse:62 Resp:16 SaO2:97 ROOM AIR Last weight lbs:148 oz:6 K.302 Method:Bed Scales Assessment/Plan Problem List 1. Lower gastrointestinal bleed 2. Chronic anemia 3. Dehydration 4. Abdominal aortic aneurysm 5. Moderate mitral regurgitation 6. Chronic kidney disease Patient condition Stable, anemia has stabilized. Nurses report no evidence of melanotic or bloody stools. Continue current plan. This inpt stay is expected to cross 2 MNs from start of care Yes at 0745
[2017-06-17 08:20] VITALS: BP 122/61
[2017-06-17 16:00] VITALS: BP 120/57
[2017-06-17 20:13] VITALS: BP 138/74
[2017-06-18 04:04] VITALS: BP 135/74
[2017-06-18 06:47] LABS: HEMOGLOBIN 9.1 g/dL (14.1-18.0); LYMPH # 1.7 K/mm3 (0.7-4.5); LYMPH % 20.5 % (10-50)
--- NOTE | 2017-06-18 08:09 | ACUTE CARE PROGRESS NOTE (QUA) ---
Progress Notes Subjective Date 06/18/17 Time 0809 Note Patient seems a little more alert today. Heart rate regular, abdomen soft, lungs clear in anterior ruano. Objective Findings Last VS-Temp:97.4 B/P:135/74 Pulse:62 Resp:18 SaO2:98 ROOM AIR Last weight lbs:148 oz:6 K.302 Method:Bed Scales Assessment/Plan Problem List 1. Lower gastrointestinal bleed 2. Chronic anemia 3. Dehydration 4. Abdominal aortic aneurysm 5. Moderate mitral regurgitation 6. Chronic kidney disease Patient condition Improving Plan: continue current care, watch labs, plan for endoscopic intervention tomorrow for his anemia. This inpt stay is expected to cross 2 MNs from start of care Yes at 0809
[2017-06-18 08:13] VITALS: BP 135/63
[2017-06-18 16:09] VITALS: BP 141/60
[2017-06-18 20:31] VITALS: BP 144/64
[2017-06-18 21:00] LABS: STOOL OCCULT BLOOD NEGATIVE (NEG)
[2017-06-19] VITALS (10 sets, daily range): BP systolic 109–156; BP diastolic 59–70
--- NOTE | 2017-06-19 07:18 | ACUTE CARE PROGRESS NOTE (QUA) ---
Progress Notes Subjective Date 06/19/17 Time 0717 Note Patient is awake and alert this morning and denies problems. He is preparing for colonoscopy. Vital signs reviewed. Lungs are clear to auscultation. Heart has a regular rate and rhythm. Abdomen is soft and nontender. Colonoscopy today and disposition afterwards. If colonoscopy is negative for any significant findings such as tumor then patient will be discharged back to [facility] Objective Findings Last VS-Temp:97.6 B/P:136/66 Pulse:64 Resp:18 SaO2:98 ROOM AIR Last weight lbs:148 oz:6 K.302 Method:Bed Scales Laboratory Tests 06/19/17 0605: Sodium 142, Potassium 3.7, Chloride 108 H, Carbon Dioxide 23, BUN 36 H, Creatinine 2.2 H, Estimated Creat Clear 23 L, Estimated GFR (MDRD) 28, Glucose 107 H, Calcium 9.3 06/18/17 2055: Stool Occult Blood NEGATIVE Assessment/Plan Problem List 1. Lower gastrointestinal bleed 2. Chronic anemia 3. Dehydration 4. Abdominal aortic aneurysm 5. Moderate mitral regurgitation 6. Chronic kidney disease Patient condition Stable Plan: continue current care, order additional tests This inpt stay is expected to cross 2 MNs from start of care Yes at 0719
[2017-06-19 08:02] LABS: LYMPH # 1.6 K/mm3 (0.7-4.5); LYMPH % 19.7 % (10-50)
--- NOTE | 2017-06-19 10:02 | Operative Note ---
Colonoscopy (Juan) Procedure date: 06/19/17 Date of : [birth year] Procedure:Colonoscopy Colonoscopy with cold snare polypectomy Indications: Mr. Gore is an 86-year-old gentleman who presented with hematochezia/rectal bleeding. He also had anemia with hemoglobin and hematocrit of 9.9 and 29.3. His hemoglobin dropped during hospitalization. The patient has been on Plavix and aspirin. He has had moderate weight loss of close to 30 pounds. He resides in the residential. He also had an elevated creatinine of 3.1. He reports no abdominal pain, change in his bowel habits or family history of colon cancer. He does state that this is his first colonoscopy. The patient's fecal Hemoccult testing during this hospitalization is negative for occult blood. Performing Provider: Indra Martinez MD Referrring Provider: Flavio Sexton M.D. Sedation: MAC sedation Procedure: Prior to the procedure, a history and physical exam was performed, and patient medications and allergies were reviewed. The risks and benefits of the procedure and the sedation options and risks were discussed with the patient. All questions were answered and informed consent was obtained. Patient identification and proposed procedure were verified by the physician and the nurse. The patient was placed in a left lateral decubitus position. Throughout the procedure, the patient's blood pressure, pulse, and oxygen saturations were monitored continuously. Findings: On digital rectal examination there was normal rectal tone. There were no external hemorrhoids. The prostate was 2+, firm but symmetric without nodules. The colonoscope was introduced through the anal canal to the rectum and advanced to the cecum. The ileocecal valve and appendiceal orifice were identified. The scope was advanced a short distance into the ileum which appeared grossly normal. The scope was then withdrawn into the colon. There were 2 colon polyps identified in the ascending polyp (13 mm) and rectal polyp (5 mm). Both were all removed via cold snare polypectomy. There were scattered extensive diverticuli throughout the descending and sigmoid colon (LEFT colon). The rectum itself was normal. Upon retroflexion within the rectum there were grade 1-2 internal hemorrhoids. Impressions: 1. Colonic polyps 2 2. Extensive left-sided diverticulosis 3. Grade 1-2 internal hemorrhoids Recommendations: I do believe that the patient has some anemia related to chronic renal insufficiency. I do believe that his bleeding was most likely diverticular hemorrhage and less likely hemorrhoidal bleeding. I would encourage fiber supplementation on a long- term daily maintenance basis. The risk of rebleeding from diverticular hemorrhage is approximately 30 percent. Presently, he can begin to advance diet and be discharged back to the residential. I would resume aspirin but hold the Plavix for 7 days. I will follow up the polyp histology. Complications: None EBL (ml): 0 at 1007
--- NOTE | 2017-06-19 11:57 | Discharge Summary ---
Demographics Admit date: 06/15/17 Discharge date: 06/19/17 Discharge diagnoses Problem List 1. Lower gastrointestinal bleed 2. Chronic anemia 3. Dehydration 4. Abdominal aortic aneurysm 5. Moderate mitral regurgitation 6. Chronic kidney disease History of present illness History of present illness 86-year-old male who on June 14 was seen in the emergency department after he was reported he passed a large amount of blood when [facility] from [facility] department and follow-up labs were performed this morning. Patient's hemoglobin had dropped from just above 9-7.4. Patient has been admitted for transfusion. Patient himself reports periodic blood in his stools as far back as January of this year. Patient's comorbidities include an abdominal aortic aneurysm as well as chronic kidney disease and coronary artery disease with recent myocardial infarction in April of this year. Patient is on both aspirin and Plavix. Patient was admitted and kept on his aspirin 81 mg a day but Plavix was held and he was placed on Lovenox 30 mg subcutaneously daily due to his impaired renal function. Decision was made to keep the patient hospitalized until he underwent colonoscopy. Stools were tested for blood and were negative. Patient was transfused 2 units of packed red blood cells on the day of admission and did not require any further transfusion. On June 19 he underwent colonoscopy which revealed hemorrhoids and diverticular disease. Diverticular bleed was the suspected cause of his lower gastrointestinal bleed. Patient will be started on a fiber supplementation. Patient was discharged back to [facility] on June 19. Rehab potential: Fair Prognosis: Fair Mental status: Average Medications Medications: Discharge meds are as noted. Follow up Follow up in office in: as needed with: Flavio Sexton MD at [phone]
--- NOTE | 2017-06-19 11:57 | Discharge Summary ---
Demographics Admit date: 06/15/17 Discharge date: 06/19/17 Discharge diagnoses Problem List 1. Lower gastrointestinal bleed 2. Chronic anemia 3. Dehydration 4. Abdominal aortic aneurysm 5. Moderate mitral regurgitation 6. Chronic kidney disease History of present illness History of present illness 86-year-old male who on June 14 was seen in the emergency department after he was reported he passed a large amount of blood [facility] and follow-up labs were performed this morning. Patient's hemoglobin had dropped from just above 9-7.4. Patient has been admitted for transfusion. Patient himself reports periodic blood in his stools as far back as January of this year. Patient's comorbidities include an abdominal aortic aneurysm as well as chronic kidney disease and coronary artery disease with recent myocardial infarction in April of this year. Patient is on both aspirin and Plavix. Patient was admitted and kept on his aspirin 81 mg a day but Plavix was held and he was placed on Lovenox 30 mg subcutaneously daily due to his impaired renal function. Decision was made to keep the patient hospitalized until he underwent colonoscopy. Stools were tested for blood and were negative. Patient was transfused 2 units of packed red blood cells on the day of admission and did not require any further transfusion. On June 19 he underwent colonoscopy which revealed hemorrhoids and diverticular disease. Diverticular bleed was the suspected cause of his lower gastrointestinal bleed. Patient will be started on a fiber supplementation. Patient was discharged back to [facility] on June 19. Rehab potential: Fair Prognosis: Fair Mental status: Average Medications Medications: Discharge meds are as noted. Follow up Follow up in office in: as needed with: Flavio Sexton MD at [phone]
[2017-06-19] MEDS ORDERED: METAMUCIL POWD174 GM PO (11:58)
[2017-06-19] MEDS ORDERED: NORCO 325 MG-51 TAB PO (11:58)
== END 2017-06-19 13:15 | DRG 375 ==
LOC: 2ND 14:40
PROVIDERS: Family Medicine; Internal Medicine Gastroenterology
PROC: 0DBK8ZX Excision of Ascending Colon, Via Natural or Artificial Opening Endoscopic, Diagnostic (ICD-10-PCS; principal; 2017-06-19 09:11)
PROC: 0DBP8ZX Excision of Rectum, Via Natural or Artificial Opening Endoscopic, Diagnostic (ICD-10-PCS; principal; 2017-06-19 09:11)
DX: C18.2 Malignant neoplasm of ascending colon (principal); K62.5 Hemorrhage of anus and rectum; L89.151 Pressure ulcer of sacral region, stage 1; I34.0 Nonrheumatic mitral (valve) insufficiency; I12.9 Hypertensive chronic kidney disease with stage 1 through stage 4 chronic kidney disease, or unspecified chronic kidney disease; I25.2 Old myocardial infarction; K62.1 Rectal polyp; Z72.0 Tobacco use; N18.9 Chronic kidney disease, unspecified; Z95.5 Presence of coronary angioplasty implant and graft; I71.4 Abdominal aortic aneurysm, without rupture
CPT/HCPCS: G0328; P9016

== ENCOUNTER 2017-06-28 15:12 | Observation (INO) | payer MEDICARE, OTHER ==
[~2017-06-28] VITALS: Ht 180.3 cm; Wt 69.5 kg
[~2017-06-28 15:12] MED LIST changes: +METAMUCIL POWD174 GM PO
[2017-06-28 15:13] VITALS: BP 153/87
--- OUTSIDE RECORDS SUMMARY | 2017-06-28 15:22 | External Medical Summary Rpt | Continuity of Care Document ---
Demographics Preferred Language Unknown Marital Status Unknown Taoism Affiliation Unknown Race White Ethnic Group White Author Author Organization Address Unknown Phone Unavailable Care Team Providers Care Safety Grooving Machine Operator Name Role Phone , Unavailable Unavailable EMS Current Medications Section EMS Allergies and Adverse Reactions EMS Past Medical History Medications Administered Section EMS Procedures Performed EMS Vital Signs EMS Patient Care Report Narrative Dispatched to [facility]. Upon arrival at scene, found an 86 year old male supine in bed. Nurse states that pt. has been having dark stool and his Hgb level is 7.4. Pt. is being transported to [facility] for direct admit. Pt. is weak and unable to ambulate. Ems placed pt. on our cot and secured him with straps. Vital signs monitored during transport. No other incidents noted during transport. Placed in room 203.
--- OUTSIDE RECORDS SUMMARY | 2017-06-28 15:22 | External Medical Summary Rpt | Continuity of Care Document ---
Demographics Preferred Language Unknown Marital Status Unknown Christianity Affiliation Unknown Race White Ethnic Group White Author Author Organization Address Unknown Phone Unavailable Care Team Providers Care Lodge Officer Name Role Phone , Unavailable Unavailable EMS Current Medications Section EMS Allergies and Adverse Reactions EMS Past Medical History Medications Administered Section EMS Procedures Performed EMS Vital Signs EMS Patient Care Report Narrative Dispatched to [facility]. Upon arrival at scene, found an 86 year old male supine in bed. Nurse states that pt. has been having dark stool and his Hgb level is 7.4. Pt. is being transported to [facility] for direct admit. Pt. is weak and unable to ambulate. Ems placed pt. on our cot and secured him with straps. Vital signs monitored during transport. No other incidents noted during transport. Placed in room 203.
--- OUTSIDE RECORDS SUMMARY | 2017-06-28 15:22 | External Medical Summary Rpt | Continuity of Care Document ---
Demographics Preferred Language Unknown Marital Status Unknown Jew Affiliation Unknown Race White Ethnic Group White Author Author Organization Address Unknown Phone Unavailable Care Team Providers Care Online Journalist Name Role Phone , Unavailable Unavailable EMS Current Medications Section EMS Allergies and Adverse Reactions EMS Past Medical History Medications Administered Section EMS Procedures Performed EMS Vital Signs EMS Patient Care Report Narrative Dispatched to [facility]. Upon arrival at scene, found an 86 year old male supine in bed. Nurse states that pt. has been having dark stool and his Hgb level is 7.4. Pt. is being transported to [facility] for direct admit. Pt. is weak and unable to ambulate. Ems placed pt. on our cot and secured him with straps. Vital signs monitored during transport. No other incidents noted during transport. Placed in room 203.
--- OUTSIDE RECORDS SUMMARY | 2017-06-28 15:22 | External Medical Summary Rpt | Continuity of Care Document ---
Demographics Preferred Language Unknown Marital Status Unknown Yarsanism Affiliation Unknown Race White Ethnic Group White Author Author Organization Address Unknown Phone Unavailable Care Team Providers Care Press Tender Star Signal Name Role Phone , Unavailable Unavailable EMS Current Medications Section EMS Allergies and Adverse Reactions EMS Past Medical History Medications Administered Section EMS Procedures Performed EMS Vital Signs EMS Patient Care Report Narrative Dispatched to [facility]. Upon arrival at scene, found an 86 year old male supine in bed. Nurse states that pt. has been having dark stool and his Hgb level is 7.4. Pt. is being transported to [facility] for direct admit. Pt. is weak and unable to ambulate. Ems placed pt. on our cot and secured him with straps. Vital signs monitored during transport. No other incidents noted during transport. Placed in room 203.
--- OUTSIDE RECORDS SUMMARY | 2017-06-28 15:22 | External Medical Summary Rpt | Continuity of Care Document ---
Author Author Organization Address Unknown Phone Unavailable Care Team Providers Care Bookkeeping Machine Mechanic Name Role Phone , Unavailable Unavailable EMS Current Medications Section EMS Allergies and Adverse Reactions EMS Past Medical History Medications Administered Section EMS Procedures Performed EMS Vital Signs EMS Patient Care Report Narrative EC 2 called to [facility], to a gentleman who had fallen and was lethargic. Upon arrival patient was lying in his bed asleep. Patient was awakened and wanted to know what we were doing. Nurse explained to him he had fallen and needed to go to the hospital. Patient said he did not want to go and that he was fine. Patient was oriented times 4 and could answer all questions. Patient again stated he did not want to go to the hospital in the presence of his who had been called. Patient signed a refusal form and EMS departed the scene and returned to [facility].
--- OUTSIDE RECORDS SUMMARY | 2017-06-28 15:22 | External Medical Summary Rpt | Continuity of Care Document ---
Demographics Preferred Language Unknown Marital Status Unknown Protestant Affiliation Unknown Race White Ethnic Group White Author Author Organization Address Unknown Phone Unavailable Care Team Providers Care Trade Marker Name Role Phone , Unavailable Unavailable EMS Current Medications Section EMS Allergies and Adverse Reactions EMS Past Medical History Medications Administered Section EMS Procedures Performed EMS Vital Signs EMS Patient Care Report Narrative Dispatched to [facility]. Upon arrival at scene, found an 86 year old male supine in bed. Nurse states that pt. has been having dark stool and his Hgb level is 7.4. Pt. is being transported to [facility] for direct admit. Pt. is weak and unable to ambulate. Ems placed pt. on our cot and secured him with straps. Vital signs monitored during transport. No other incidents noted during transport. Placed in room 203.
--- OUTSIDE RECORDS SUMMARY | 2017-06-28 15:22 | External Medical Summary Rpt | Continuity of Care Document ---
Demographics Preferred Language Unknown Marital Status Unknown Congregational Affiliation Unknown Race White Ethnic Group White Author Author Organization Address Unknown Phone Unavailable Care Team Providers Care Buoy Tender Name Role Phone , Unavailable Unavailable EMS Current Medications Section EMS Allergies and Adverse Reactions EMS Past Medical History Medications Administered Section EMS Procedures Performed EMS Vital Signs EMS Patient Care Report Narrative Dispatched to [facility]. Upon arrival at scene, found an 86 year old male supine in bed. Nurse states that pt. has been having dark stool and his Hgb level is 7.4. Pt. is being transported to [facility] for direct admit. Pt. is weak and unable to ambulate. Ems placed pt. on our cot and secured him with straps. Vital signs monitored during transport. No other incidents noted during transport. Placed in room 203.
--- OUTSIDE RECORDS SUMMARY | 2017-06-28 15:22 | External Medical Summary Rpt | Continuity of Care Document ---
Demographics Preferred Language Unknown Marital Status Unknown Sikhism Affiliation Unknown Race White Ethnic Group White Author Author Organization Address Unknown Phone Unavailable Care Team Providers Care Shooter'S Helper Name Role Phone , Unavailable Unavailable EMS Current Medications Section EMS Allergies and Adverse Reactions EMS Past Medical History Medications Administered Section EMS Procedures Performed EMS Vital Signs EMS Patient Care Report Narrative Dispatched to [facility]. Upon arrival at scene, found an 86 year old male supine in bed. Nurse states that pt. has been having dark stool and his Hgb level is 7.4. Pt. is being transported to [facility] for direct admit. Pt. is weak and unable to ambulate. Ems placed pt. on our cot and secured him with straps. Vital signs monitored during transport. No other incidents noted during transport. Placed in room 203.
--- OUTSIDE RECORDS SUMMARY | 2017-06-28 15:22 | External Medical Summary Rpt | Continuity of Care Document ---
Demographics Preferred Language Unknown Marital Status Unknown Gnosticism Affiliation Unknown Race White Ethnic Group White Author Author Organization Address Unknown Phone Unavailable Care Team Providers Care Colon And Rectal Surgeon Name Role Phone , Unavailable Unavailable EMS Current Medications Section EMS Allergies and Adverse Reactions EMS Past Medical History Medications Administered Section EMS Procedures Performed EMS Vital Signs EMS Patient Care Report Narrative Dispatched to [facility]. Upon arrival at scene, found [...]
--- OUTSIDE RECORDS SUMMARY | 2017-06-28 15:22 | External Medical Summary Rpt | Continuity of Care Document ---
Author Author Organization Address Unknown Phone Unavailable Care Team Providers Care Meat Cutting Block Repairer Name Role Phone , Unavailable Unavailable EMS Current Medications Section EMS Allergies and Adverse Reactions EMS Past Medical History Medications Administered Section EMS Procedures Performed EMS Vital Signs EMS Patient Care Report Narrative EC 2 called to [facility], to a gentleman who had fallen [...] EMS departed the scene and returned to [facility].
[2017-06-28] MEDS ORDERED: NORVASC 10MG. T10 MG PO (15:26)
--- OUTSIDE RECORDS SUMMARY | 2017-06-28 15:26 | External Medical Summary Rpt | CCD ---
Demographics Preferred Language Japanese Marital Status Unknown Hindu Affiliation Unknown Race Unknown Ethnic Group Unknown Author Author , VIOLETTA SHIPLEY Address Unknown Phone Immunization No patient found.
--- OUTSIDE RECORDS SUMMARY | 2017-06-28 15:26 | External Medical Summary Rpt | CCD ---
Author Author , VIOLETTA SHIPLEY Address Unknown Phone [email or web address] Purpose Continuity of Care Document - 03-29-2017 through 2016 Results Labs Lab Lab Date Result Refere Interp Status Commen Order Detail nces retati t Range on CBC w auto diff (06-19-2017 06:05) Blood 10-30-2 = 8.9 4.8-10. complet leukocy 017 K/MM3 8 ed jefe 06:05 count (number /volume ) Automat 06-19-2 = 16.2 11.5-17 complet ed 017 % .5 ed erythro 06:05 cyte distrib ution width Red 06-19-2 = 3.67 4.6-6.2 complet blood 017 M/mm3 ed cell 06:05 count Blood 06-19-2 = 248 142-424 complet platele 017 K/mm3 ed t count 06:05 Automat 10-2 = 8.9 7.4-10. complet ed 017 fl 4 ed blood 06:05 platele t mean volume deedee [place]offe[place] % 06-19-2 = 6.7 % 1.7-9.3 complet 017 ed 06:05 Absolut 06-19-2 = 0.6 0.1-1.0 complet e 017 K/mm3 ed monocyt 06:05 e count Automat 2 = 97.7 82.2-97 complet ed 017 fl .8 ed erythro 06:05 cyte mean corpusc ular v Automat 06-19-2 = 30.7 31.8-35 complet ed 017 g/dl .4 ed erythro 06:05 cyte mean corpusc ular h Mean 06-19-2 = 30.0 27-31.2 complet corpusc 017 pg ed ular 06:05 hemoglo bin (MCH) determ Lymphoc -30-2 = 19.7 10-50 complet yte 017 % ed count, 06:05 blood, automat ed Absolut 06-19-2 = 1.6 0.7-4.5 complet e 017 K/mm3 ed lymphoc 06:05 yte count Blood = 11.0 14.1-18 complet hemoglo 017 g/dL .0 ed bin 06:05 measure ment (mass/v olum Blood = 35.9 42.0-52 complet hematoc 017 % .0 ed rit 06:05 (volume fractio n) Granulo 2 = 71.5 37.0-80 complet cyte 017 % .0 ed percent 06:05 age Blood = 6.4 1.3-8.0 complet granulo 017 K/mm3 ed cytes 06:05 automat ed count (numb Automat 2 = 3.3 % 0.1-12. complet ed 017 0 ed blood 06:05 eosinop hils/10 0 leukocy t Automat 2 = 0.3 0.0-0.4 complet ed 017 K/mm3 ed blood 06:05 eosinop hil count Baso % = 0.8 % 0.1-2.0 complet 017 ed 06:05 Automat 06-19-2 = 0.1 0-0.2 complet ed 017 K/MM3 ed blood 06:05 basophi l count (count/ vo Basic metabolic panel (06-19-2017 06:05) Serum 06-19-2 = 107 74-106 complet or 017 mg/dL ed plasma 06:05 glucose measure ment (mas Estimat = 28 >60 complet ed 017 ML/MIN ed glomeru 06:05 lar filtrat ion rate (GF Comment: REFERENCE RANGE: >60 ML/MIN/1.73 SQUARE METERS Comment: If this patient is -Sudanese, then multiply the Comment: result by 1.210. Estimat 06-19-2 = 23 50-200 complet ion of 017 ML/MIN ed creatin 06:05 ine renal clearan ce Serum = 2.2 0.70-1. complet or 017 mg/dL 30 ed plasma 06:05 creatin ine measure ment ( Carbon 2 = 23 21.0-32 complet dioxide 017 mmoL/L .0 ed 06:05 measure ment Serum 2 = 108 98-107 complet or 017 mmoL/L ed plasma 06:05 chlorid e measure ment (mo Serum = 9.3 8.5-10. complet or 017 mg/dL 1 ed plasma 06:05 calcium measure ment (mas Serum = 36 7-18 complet or 017 mg/dL ed plasma 06:05 urea nitroge n measure men Serum = 142 136-145 complet sodium 017 mmoL/L ed measure 06:05 ment Serum = 3.7 3.5-5.1 complet potassi 017 mmoL/L ed um 06:05 measure ment Fecal occult blood test (06-18-2017 20:55) Comment: Collected by nurse? Y Comment: Hold specimen in OE? N Stool NEGATIV NEG complet occult 017 E ed blood 20:55 NEGATIV test on E L first specime Hemoglobin.gastrointestinal [Presence] in Stool (06-18-2017 20:55) Hemoglo NEGATIV NEG complet bin.gas 017 E ed trointe 20:55 stinal [Presen ce] in Stool --1st specime n Basic metabolic panel (06-18-2017 06:05) Serum = 141 136-145 complet sodium 017 mmoL/L ed measure 06:05 ment Serum = 3.3 3.5-5.1 complet potassi 017 mmoL/L ed um 06:05 measure ment Serum = 152 74-106 complet or 017 mg/dL ed plasma 06:05 glucose measure ment (mas Estimat = 26 >60 complet ed 017 ML/MIN ed glomeru 06:05 lar filtrat ion rate (GF Comment: REFERENCE RANGE: >60 ML/MIN/1.73 SQUARE METERS Comment: If this patient is -Sudanese, then multiply the Comment: result by 1.210. Estimat = 21 50-200 complet ion of 017 ML/MIN ed creatin 06:05 ine renal clearan ce Serum = 2.4 0.70-1. complet or 017 mg/dL 30 ed plasma 06:05 creatin ine measure ment ( Carbon = 25 21.0-32 complet dioxide 017 mmoL/L .0 ed 06:05 measure ment Serum = 108 98-107 complet or 017 mmoL/L ed plasma 06:05 chlorid e measure ment (mo Serum = 8.8 8.5-10. complet or 017 mg/dL 1 ed plasma 06:05 calcium measure ment (mas Serum = 45 7-18 complet or 017 mg/dL ed plasma 06:05 urea nitroge n measure men CBC w auto diff (06-18-2017 06:05) Blood = 8.4 4.8-10. complet leukocy 017 K/MM3 8 ed jefe 06:05 count (number /volume ) Automat = 16.4 11.5-17 complet ed 017 % .5 ed erythro 06:05 cyte distrib ution width Red = 2.99 4.6-6.2 complet blood 017 M/mm3 ed cell 06:05 count Blood = 183 142-424 complet platele 017 K/mm3 ed t count 06:05 Automat = 8.4 7.4-10. complet ed 017 fl 4 ed blood 06:05 platele t mean volume deedee [place]offe[place] % = 8.0 % 1.7-9.3 complet 017 ed 06:05 Absolut = 0.7 0.1-1.0 complet e 017 K/mm3 ed monocyt 06:05 e count Automat = 94.7 82.2-97 complet ed 017 fl .8 ed erythro 06:05 cyte mean corpusc ular v Automat = 32.1 31.8-35 complet ed 017 g/dl .4 ed erythro 06:05 cyte mean corpusc ular h Mean = 30.4 27-31.2 complet corpusc 017 pg ed ular 06:05 hemoglo bin (MCH) determ Lymphoc = 20.5 10-50 complet yte 017 % ed count, 06:05 blood, automat ed Absolut = 1.7 0.7-4.5 complet e 017 K/mm3 ed lymphoc 06:05 yte count Blood = 9.1 14.1-18 complet hemoglo 017 g/dL .0 ed bin 06:05 measure ment (mass/v olum Blood = 28.3 42.0-52 complet hematoc 017 % .0 ed rit 06:05 (volume fractio n) Granulo = 65.6 37.0-80 complet cyte 017 % .0 ed percent 06:05 age Blood = 5.5 1.3-8.0 complet granulo 017 K/mm3 ed cytes 06:05 automat ed count (numb Automat = 5.0 % 0.1-12. complet ed 017 0 ed blood 06:05 eosinop hils/10 0 leukocy t Automat = 0.4 0.0-0.4 complet ed 017 K/mm3 ed blood 06:05 eosinop hil count Baso % = 0.9 % 0.1-2.0 complet 017 ed 06:05 Automat = 0.1 0-0.2 complet ed 017 K/MM3 ed blood 06:05 basophi l count (count/ vo CBC w auto diff (06-17-2017 06:05) Blood = 9.6 4.8-10. complet leukocy 017 K/MM3 8 ed jefe 06:05 count (number /volume ) Automat = 16.3 11.5-17 complet ed 017 % .5 ed erythro 06:05 cyte distrib ution width Red = 3.19 4.6-6.2 complet blood 017 M/mm3 ed cell 06:05 count Blood = 180 142-424 complet platele 017 K/mm3 ed t count 06:05 Automat = 8.5 7.4-10. complet ed 017 fl 4 ed blood 06:05 platele t mean volume deedee [place]offe[place] % = 6.7 % 1.7-9.3 complet 017 ed 06:05 Absolut = 0.7 0.1-1.0 complet e 017 K/mm3 ed monocyt 06:05 e count Automat = 94.6 82.2-97 complet ed 017 fl .8 ed erythro 06:05 cyte mean corpusc ular v Automat = 31.9 31.8-35 complet ed 017 g/dl .4 ed erythro 06:05 cyte mean corpusc ular h Mean = 30.2 27-31.2 complet corpusc 017 pg ed ular 06:05 hemoglo bin (MCH) determ Lymphoc = 19.2 10-50 complet yte 017 % ed count, 06:05 blood, automat ed Absolut = 1.8 0.7-4.5 complet e 017 K/mm3 ed lymphoc 06:05 yte count Blood = 9.6 14.1-18 complet hemoglo 017 g/dL .0 ed bin 06:05 measure ment (mass/v olum Blood = 30.1 42.0-52 complet hematoc 017 % .0 ed rit 06:05 (volume fractio n) Granulo = 68.1 37.0-80 complet cyte 017 % .0 ed percent 06:05 age Blood = 6.6 1.3-8.0 complet granulo 017 K/mm3 ed cytes 06:05 automat ed count (numb Automat = 5.2 % 0.1-12. complet ed 017 0 ed blood 06:05 eosinop hils/10 0 leukocy t Automat = 0.5 0.0-0.4 complet ed 017 K/mm3 ed blood 06:05 eosinop hil count Baso % = 0.8 % 0.1-2.0 complet 017 ed 06:05 Automat = 0.1 0-0.2 complet ed 017 K/MM3 ed blood 06:05 basophi l count (count/ vo Basic metabolic panel (06-17-2017 06:05) Serum = 142 136-145 complet sodium 017 mmoL/L ed measure 06:05 ment Serum = 3.6 3.5-5.1 complet potassi 017 mmoL/L ed um 06:05 measure ment Serum = 140 74-106 complet or 017 mg/dL ed plasma 06:05 glucose measure ment (mas Estimat 2 = 25 >60 complet ed 017 ML/MIN ed glomeru 06:05 lar filtrat ion rate (GF Comment: REFERENCE RANGE: >60 ML/MIN/1.73 SQUARE METERS Comment: If this patient is -Sudanese, then multiply the Comment: result by 1.210. Estimat 2 = 20 50-200 complet ion of 017 ML/MIN ed creatin 06:05 ine renal clearan ce Serum = 2.5 0.70-1. complet or 017 mg/dL 30 ed plasma 06:05 creatin ine measure ment ( Carbon = 25 21.0-32 complet dioxide 017 mmoL/L .0 ed 06:05 measure ment Serum = 108 98-107 complet or 017 mmoL/L ed plasma 06:05 chlorid e measure ment (mo Serum = 9.0 8.5-10. complet or 017 mg/dL 1 ed plasma 06:05 calcium measure ment (mas Serum = 57 7-18 complet or 017 mg/dL ed plasma 06:05 urea nitroge n measure men Basic metabolic panel (06-16-2017 06:20) Serum = 109 74-106 complet or 017 mg/dL ed plasma 06:20 glucose measure ment (mas Serum = 141 136-145 complet sodium 017 mmoL/L ed measure 06:20 ment Serum = 4.1 3.5-5.1 complet potassi 017 mmoL/L ed um 06:20 measure ment Estimat = 23 >60 complet ed 017 ML/MIN ed glomeru 06:20 lar filtrat ion rate (GF Comment: REFERENCE RANGE: >60 ML/MIN/1.73 SQUARE METERS Comment: If this patient is -Sudanese, then multiply the Comment: result by 1.210. Estimat = 19 50-200 complet ion of 017 ML/MIN ed creatin 06:20 ine renal clearan ce Serum = 2.6 0.70-1. complet or 017 mg/dL 30 ed plasma 06:20 creatin ine measure ment ( Carbon = 25 21.0-32 complet dioxide 017 mmoL/L .0 ed 06:20 measure ment Serum = 108 98-107 complet or 017 mmoL/L ed plasma 06:20 chlorid e measure ment (mo Serum = 9.1 8.5-10. complet or 017 mg/dL 1 ed plasma 06:20 calcium measure ment (mas Serum = 73 7-18 complet or 017 mg/dL ed plasma 06:20 urea nitroge n measure men CBC w auto diff (06-16-2017 06:20) Blood = 11.4 4.8-10. complet leukocy 017 K/MM3 8 ed jefe 06:20 count (number /volume ) Automat = 16.3 11.5-17 complet ed 017 % .5 ed erythro 06:20 cyte distrib ution width Red = 2.98 4.6-6.2 complet blood 017 M/mm3 ed cell 06:20 count Blood = 164 142-424 complet platele 017 K/mm3 ed t count 06:20 Automat = 8.7 7.4-10. complet ed 017 fl 4 ed blood 06:20 platele t mean volume deedee [place]offe[place] % = 6.4 % 1.7-9.3 complet 017 ed 06:20 Absolut = 0.7 0.1-1.0 complet e 017 K/mm3 ed monocyt 06:20 e count Automat = 92.8 82.2-97 complet ed 017 fl .8 ed erythro 06:20 cyte mean corpusc ular v Automat = 32.3 31.8-35 complet ed 017 g/dl .4 ed erythro 06:20 cyte mean corpusc ular h Mean = 29.9 27-31.2 complet corpusc 017 pg ed ular 06:20 hemoglo bin (MCH) determ Lymphoc = 19.0 10-50 complet yte 017 % ed count, 06:20 blood, automat ed Absolut = 2.2 0.7-4.5 complet e 017 K/mm3 ed lymphoc 06:20 yte count Blood = 8.9 14.1-18 complet hemoglo 017 g/dL .0 ed bin 06:20 measure ment (mass/v olum Blood = 27.7 42.0-52 complet hematoc 017 % .0 ed rit 06:20 (volume fractio n) Granulo = 71.2 37.0-80 complet cyte 017 % .0 ed percent 06:20 age Blood = 8.1 1.3-8.0 complet granulo 017 K/mm3 ed cytes 06:20 automat ed count (numb Automat = 2.7 % 0.1-12. complet ed 017 0 ed blood 06:20 eosinop hils/10 0 leukocy t Automat = 0.3 0.0-0.4 complet ed 017 K/mm3 ed blood 06:20 eosinop hil count Automat = 0.1 0-0.2 complet ed 017 K/MM3 ed blood 06:20 basophi l count (count/ vo Baso % = 0.7 % 0.1-2.0 complet 017 ed 06:20 Whole blood hemoglobin and hematocrit pa (06-16-2017 03:45) Comment: COMMENTS TO EXPLOSIVE OPERATOR SUPERVISOR: POST TRANSFUSION Blood = 8.7 14.1-18 complet hemoglo 017 g/dL .0 ed bin 03:45 measure ment (mass/v olum Comment: Blood = 27.2 42.0-52 complet hematoc 017 % .0 ed rit 03:45 (volume fractio n) Blood product special preparation [Type] (06-16-2017) Blood BLOOD complet product 017 UNIT ed RELEASE special prepara tion [Type] Leukocyte reduction of packed red blood (06-15-2017 23:00) Leukocy BLOOD complet te 017 UNIT ed reducti 23:00 RELEASE on of BLOOD packed UNIT red RELEASE blood L Comment: BLOOD UNIT # : [id number] RELEASED 06/26/17 Comment: Eladia Chua Leukocyte reduction of packed red blood (06-15-2017 20:22) Leukocy BLOOD complet te 017 UNIT ed reducti 20:22 RELEASE on of BLOOD packed UNIT red RELEASE blood L Comment: BLOOD UNIT # : [id number] RELEASED 06/15/17 Comment: Sarah Solis Blood product special preparation [Type] (06-15-2017 20:22) Blood BLOOD complet product 017 UNIT ed 20:22 RELEASE special prepara tion [Type] Whole blood hemoglobin and hematocrit pa (06-15-2017 19:29) Blood = 7.4 14.1-18 complet hemoglo 017 g/dL .0 ed bin 19:29 measure ment (mass/v olum Comment: Comment: CRITICAL RESULTS Comment: RESULTS CALLED TO: BOBBY Comment: 06/15/17 194 IrmaNupurn Blood = 23.0 42.0-52 complet hematoc 017 % .0 ed rit 19:29 (volume fractio n) Comment: CRITICAL RESULTS Comment: RESULTS CALLED TO: BOBBY 06/15/17 1950 Sarah Solis Crossmatch (06-15-2017 17:05) Comment: Hold? N Comment: Transfuse now? 1 UNIT NOW [employer] COMPAT complet te spin 017 COMPAT ed 17:05 L crossma tch Interpr COMPAT complet etation 017 COMPAT ed of 17:05 L major crossma tch resul Blood type and crossmatch (06-15-2017 17:05) Comment: Hold? N Comment: Transfuse now? 1 UNIT NOW Blood O O L complet ABO 017 ed group 17:05 typing Rh POSITIV complet blood 017 E ed group 17:05 POSITIV typing E L Materna NEGATIV NEGATIV complet l 017 E E ed antibod 17:05 NEGATIV y E L screen Blood type & Crossmatch panel in Blood (06-15-2017 17:05) Blood NEGATIV NEGATIV complet group 017 E E ed antibod 17:05 y screen [Presen ce] in Serum or Plasma Rh POSITIV complet [Type] 017 E ed in 17:05 Blood ABO O complet group 017 ed [Type] 17:05 in Blood Blood type & Crossmatch panel in Blood (06-15-2017 17:05) [facility] complet crossma 017 ed tch 17:05 [interp retatio n] [facility] complet crossma 017 ed tch 17:05 [interp retatio n] by [employer] te spin Comprehensive metabolic panel (06-14-2017 08:50) Estimat = 19 50-200 complet ion of 017 ML/MIN ed creatin 08:50 ine renal clearan ce Serum = 3.1 0.70-1. complet or 017 mg/dL 30 ed plasma 08:50 creatin ine measure ment ( Carbon = 23 21.0-32 complet dioxide 017 mmoL/L .0 ed 08:50 measure ment Serum = 104 98-107 complet or 017 mmoL/L ed plasma 08:50 chlorid e measure ment (mo Serum 2 = 10.3 8.5-10. complet or 017 mg/dL 1 ed plasma 08:50 calcium measure ment (mas Serum 2 = 88 7-18 complet or 017 mg/dL ed plasma 08:50 urea nitroge n measure men Comment: NOTIFICATION RESULT Serum 06-14-2 = 0.4 0.2-1.0 complet or 017 mg/dL ed plasma 08:50 total bilirub in measure m Serum 2 = 118 46-116 complet or 017 U/L ed plasma 08:50 alkalin e phospha tase deedee Serum 06-14-2 = 3.0 3.4-5.0 complet or 017 gm/dL ed plasma 08:50 albumin measure ment (mas Serum 06-14-2 = 0.8 1.1-1.8 complet or 017 ed plasma 08:50 albumin /globul in mass ra Protein = 6.9 6.4-8.2 complet total 017 gm/dL ed ser/sadia 08:50 s ALT 06-14- = 14 12-78 complet (SGPT) 017 U/L [...] SQUARE METERS Comment: If this patient is -Sudanese, then multiply the Comment: result by 1.210. CBC w auto diff (06-14-2017 08:50) Blood = 13.5 4.8-10. complet leukocy 017 K/MM3 8 ed jefe 08:50 count (number /volume ) Automat = 15.8 11.5-17 complet ed 017 % .5 ed erythro 08:50 cyte distrib ution width Red = 3.10 4.6-6.2 complet blood 017 M/mm3 ed cell 08:50 count Blood = 233 142-424 complet platele 017 K/mm3 ed t count 08:50 Automat = 9.0 7.4-10. complet ed 017 fl 4 ed blood 08:50 platele t mean volume deedee Coffey % = 4.9 % 1.7-9.3 complet 017 ed 08:50 Absolut = 0.7 0.1-1.0 complet e 017 [...] blood 08:50 eosinop hil count Baso % = 0.3 % 0.1-2.0 complet 017 ed 08:50 Automat = 0.0 0-0.2 complet ed 017 K/MM3 [...] SQUARE METERS Comment: If this patient is -Sudanese, then multiply the Comment: result by 1.210. [...] RESULTS Comment: RESULTS CALLED TO: Bridget SHAFER SENIOR MERCHANDISER 05/28/17 0130 Comment: Tay Weiner Comment: > [...] ed blood 00:20 platele t mean volume dedeee Coffey % = 9.1 % 1.7-9.3 complet 017 [...] SerPl-mCnc (03-29-2017 10:53) NT-proB 4620 0-1799 complet MANAGER FINANCIAL 017 pg/mL ed SerPl-m 10:53 Cnc Lipase SerPl-cCnc (03-29-2017 10:53) Lipase 28 U/L 19-63 complet SerPl-c 017 ed Cnc 10:53
--- OUTSIDE RECORDS SUMMARY | 2017-06-28 15:26 | External Medical Summary Rpt | CCD ---
Author Author , VIOLETTA SHIPLEY Address Unknown Phone [email or web address] Purpose Continuity of Care Document - 03-29-2017 [...] blood 06:05 platele t mean volume deedee [place] % 06-19-2 = 6.7 % 1.7-9.3 complet [...] SQUARE METERS Comment: If this patient is -[place]ian, then multiply the Comment: result by 1.210. [...] SQUARE METERS Comment: If this patient is -[place]ian, then multiply the Comment: result by 1.210. [...] blood 06:05 platele t mean volume deedee [place] % = 8.0 % 1.7-9.3 complet 017 [...] blood 06:05 platele t mean volume deedee [place] % = 6.7 % 1.7-9.3 complet 017 [...] SQUARE METERS Comment: If this patient is -[place]ian, then multiply the Comment: result by 1.210. [...] SQUARE METERS Comment: If this patient is -[place], then multiply the Comment: result by 1.210. [...] blood 06:20 platele t mean volume deedee [place] % = 6.4 % 1.7-9.3 complet 017 [...] hematocrit pa (06-16-2017 03:45) Comment: COMMENTS TO VENETIAN BLIND CLEANER: POST TRANSFUSION Blood = 8.7 14.1-18 complet [...] Comment: BLOOD UNIT # : [id number] RELEASED 06/26/17 Comment: Eladia Chua Leukocyte reduction of packed red blood (06-15-2017 20:22) Leukocy BLOOD complet te 017 UNIT ed reducti 20:22 RELEASE on of BLOOD packed UNIT red RELEASE blood L Comment: BLOOD UNIT # : [id number] RELEASED 06/15/17 Comment: Sarah Solis Blood product [...] & Crossmatch panel in Blood (06-15-2017 17:05) [facility] COMPAT complet crossma 017 ed tch 17:05 [interp retatio n] [facility] COMPAT complet crossma 017 ed tch 17:05 [...] 14 12-78 complet (SGPT) 017 U/L ed ser/sdaia 08:50 s Serum = 17 15-37 complet [...] SQUARE METERS Comment: If this patient is -Ethiopian, then multiply the Comment: result by 1.210. [...] blood 08:50 platele t mean volume deedee [place] % = 4.9 % 1.7-9.3 complet 017 [...] SQUARE METERS Comment: If this patient is -[place]ian, then multiply the Comment: result by 1.210. [...] RESULTS Comment: RESULTS CALLED TO: Bridget SHAFER BULK FLUIDS HANDLER 05/28/17 0130 Comment: Tay Weiner Comment: > [...] blood 00:20 platele t mean volume deedee [place] % = 9.1 % 1.7-9.3 complet 017 [...] SerPl-mCnc (03-29-2017 10:53) NT-proB 4620 0-1799 complet MINE SUPERINTENDENT 017 pg/mL ed SerPl-m 10:53 Cnc Lipase SerPl-cCnc (03-29-2017 10:53) Lipase 28 U/L 19-63 complet SerPl-c 017 ed Cnc 10:53
--- OUTSIDE RECORDS SUMMARY | 2017-06-28 15:26 | External Medical Summary Rpt | CCD ---
Demographics Preferred Language Tajik Marital Status Unknown Jainism Affiliation Unknown Race Unknown Ethnic Group Unknown Author Author , VIOLETTA SHIPLEY Address Unknown Phone Immunization No patient found.
--- OUTSIDE RECORDS SUMMARY | 2017-06-28 15:29 | External Medical Summary Rpt ---
Author Author [facility], [facility] Organization [employer] Address Unknown Phone Unavailable Results CBC W Auto Differential panel in Blood Observa Value Referen Units Interpr Notes Date tion ce etation Range Basophils 0 - 0.2 K/MM3 Normal No Jun 19 informati 2017 6:05 [#/volume on in AM ] in source Blood by data Automated count Basophils 0.1 - 2.0 % Normal No Jun 19 /100 informati 2017 6:05 leukocyte on in AM s in source Blood by data Automated count Eosinophi 0.0 - 0.4 K/mm3 Normal No Jun 19 ls informati 2017 6:05 [#/volume on in AM ] in source Blood by data Automated count Eosinophi 0.1 - % Normal No Jun 19 ls/100 12.0 informati 2017 6:05 leukocyte on in AM s in source Blood by data Automated count Granulocy 1.3 - 8.0 K/mm3 Normal No Jun 19 jefe informati 2017 6:05 [#/volume on in AM ] in source Blood by data Automated count Granulocy 37.0 - % Normal No Jun 19 jefe/100 80.0 informati 2017 6:05 leukocyte on in AM s in source Blood by data Automated count Hematocri 42.0 - % Low No Jun 19 t [Volume 52.0 informati 2017 6:05 on in AM Fraction] source of Blood data Hemoglobi 14.1 - g/dL Low No Jun 19 n 18.0 informati 2017 6:05 [Mass/vol on in AM ume] in source Blood data Lymphocyt 0.7 - 4.5 K/mm3 Normal No Jun 19 es informati 2017 6:05 [#/volume on in AM ] in source Unspecifi data ed specimen by Automated count Lymphocyt 10 - 50 % Normal No Jun 19 es informati 2017 6:05 [#/volume on in AM ] in source Unspecifi data ed specimen by Automated count Erythrocy 27 - 31.2 pg Normal No Jun 19 te mean informati 2017 6:05 corpuscul on in AM ar source hemoglobi data n [Entitic mass] Erythrocy 31.8 - g/dl Low No Jun 19 te mean 35.4 informati 2016 6:05 corpuscul on in AM ar source hemoglobi data n concentra tion [Mass/vol ume] by Automated count Erythrocy 82.2 - fl Normal No May 30 te mean 97.8 informati 2017 6:05 corpuscul on in AM ar volume source [Entitic data volume] by Automated count Monocytes 0.1 - 1.0 K/mm3 Normal No Jun 19 informati 2017 6:05 [#/volume on in AM ] in source Blood by data Automated count Monocytes 1.7 - 9.3 % Normal No May 30 /100 informati 2017 6:05 leukocyte on in AM s in source Blood by data Automated count Platelet 7.4 - fl Normal No Jun 19 mean 10.4 informati 2017 6:05 volume on in AM [Entitic source volume] data in Blood by Automated count Platelets 142 - 424 K/mm3 No No Jun 19 informati informati 2017 6:05 [#/volume on in on in AM ] in source source Blood data data Erythrocy 4.6 - 6.2 M/mm3 Low No Jun 19 jefe informati 2017 6:05 [#/volume on in AM ] in source Amniotic data fluid Erythrocy 11.5 - % Normal No Jun 19 te 17.5 informati 2016 6:05 distribut on in AM ion width source [Entitic data volume] by Automated count Leukocyte 4.8 - K/MM3 Normal No May 30 s 10.8 informati 2016 6:05 [#/volume on in AM ] in source Blood data Basic metabolic panel in Blood Observa Value Referen Units Interpr Notes Date tion ce etation Range Urea 7 - 18 mg/dL High No Jun 19 nitrogen informati 2017 6:05 [Mass/vol on in AM ume] in source Serum or data Plasma Calcium 8.5 - mg/dL Normal No Jun 19 [Mass/vol 10.1 informati 2017 6:05 ume] in on in AM Serum or source Plasma data Chloride 98 - 107 mmoL/L High No Jun 19 [Moles/vo informati 2017 6:05 lume] in on in AM Serum or source Plasma data Carbon 21.0 - mmoL/L Normal No Jun 19 dioxide, 32.0 informati 2017 6:05 total on in AM [Moles/vo source lume] in data Serum or Plasma Creatinin 0.70 - mg/dL High No Jun 19 e 1.30 informati 2017 6:05 [Mass/vol on in AM ume] in source Serum or data Plasma Creatinin 50 - 200 ML/MIN Low No Jun 19 e renal informati 2017 6:05 clearance on in AM source predicted data by Cockcroft -Gault formula Estimated >60 ML/MIN No REFERENCE Jun 19 informati RANGE: 2017 6:05 glomerula on in >60 AM r source ML/MIN/1. filtratio data 73 SQUARE n rate METERSIf (GF this patient is -A merican, then multiply theresult by 1.210. Glucose 74 - 106 mg/dL High No Jun 19 [Mass/vol informati 2016 6:05 ume] in on in AM Serum or source Plasma data Potassium 3.5 - 5.1 mmoL/L Normal No Jun 19 informati 2016 6:05 [Moles/vo on in AM lume] in source Serum or data Plasma Sodium 136 - 145 mmoL/L Normal No Jun 19 [Moles/vo informati 2016 6:05 lume] in on in AM Serum or source Plasma data Hemoglobin.gastrointestinal [Presence] in Stool Observa Value Referen Units Interpr Notes Date tion ce etation Range Collected by nurse? Y Hold specimen in OE? N Hemoglo NEGATIV NEG No No No Jun 18 bin.gas E informa informa informa 2016 trointe tion in tion in tion in 8:55 PM stinal source source source [Presen data data data ce] in Stool --1st specime n Basic metabolic panel in Blood Observa Value Referen Units Interpr Notes Date tion ce etation Range Urea 7 - 18 mg/dL High No Jun 18 nitrogen informati 2016 6:05 [Mass/vol on in AM ume] in source Serum or data Plasma Calcium 8.5 - mg/dL Normal No Jun 18 [Mass/vol 10.1 informati 2016 6:05 ume] in on in AM Serum or source Plasma data Chloride 98 - 107 mmoL/L High No Jun 18 [Moles/vo informati 2016 6:05 lume] in on in AM Serum or source Plasma data Carbon 21.0 - mmoL/L Normal No Jun 18 dioxide, 32.0 informati 2016 6:05 total on in AM [Moles/vo source lume] in data Serum or Plasma Creatinin 0.70 - mg/dL High No Jun 18 e 1.30 informati 2016 6:05 [Mass/vol on in AM ume] in source Serum or data Plasma Creatinin 50 - 200 ML/MIN Low No Jun 18 e renal informati 2016 6:05 clearance on in AM source predicted data by Cockcroft -Gault formula Estimated >60 ML/MIN No REFERENCE Jun 18 informati RANGE: 2017 6:05 glomerula on in >60 AM r source ML/MIN/1. filtratio data 73 SQUARE n rate METERSIf (GF this patient is -A merican, then multiply theresult by 1.210. Glucose 74 - 106 mg/dL High No Jun 18 [Mass/vol informati 2016 6:05 ume] in on in AM Serum or source Plasma data Potassium 3.5 - 5.1 mmoL/L Low No Jun 18 informati 2016 6:05 [Moles/vo on in AM lume] in source Serum or data Plasma Sodium 136 - 145 mmoL/L Normal No Jun 18 [Moles/vo informati 2016 6:05 lume] in on in AM Serum or source Plasma data CBC W Auto Differential panel in Blood Observa Value Referen Units Interpr Notes Date tion ce etation Range Basophils 0 - 0.2 K/MM3 Normal No Jun 18 informati 2016 6:05 [#/volume on in AM ] in source Blood by data Automated count Basophils 0.1 - 2.0 % Normal No Jun 18 informati 2016 6:05 leukocyte on in AM s in source Blood by data Automated count Eosinophi 0.0 - 0.4 K/mm3 Normal No Jun 18 ls informati 2016 6:05 [#/volume on in AM ] in source Blood by data Automated count Eosinophi 0.1 - % Normal No Jun 18 ls/100 12.0 informati 2016 6:05 leukocyte on in AM s in source Blood by data Automated count Granulocy 1.3 - 8.0 K/mm3 Normal No Jun 18 jefe informati 2016 6:05 [#/volume on in AM ] in source Blood by data Automated count Granulocy 37.0 - % Normal No Jun 18 jefe/100 80.0 informati 2016 6:05 leukocyte on in AM s in source Blood by data Automated count Hematocri 42.0 - % Low No Jun 18 t [Volume 52.0 informati 2016 6:05 on in AM Fraction] source of Blood data Hemoglobi 14.1 - g/dL Low No Jun 18 n 18.0 informati 2017 6:05 [Mass/vol on in AM ume] in source Blood data Lymphocyt 0.7 - 4.5 K/mm3 Normal No Jun 18 es informati 2016 6:05 [#/volume on in AM ] in source Unspecifi data ed specimen by Automated count Lymphocyt 10 - 50 % Normal No Jun 18 es informati 2017 6:05 [#/volume on in AM ] in source Unspecifi data ed specimen by Automated count Erythrocy 27 - 31.2 pg Normal No Jun 18 te mean informati 2016 6:05 corpuscul on in AM ar source hemoglobi data n [Entitic mass] Erythrocy 31.8 - g/dl Normal No Jun 18 te mean 35.4 informati 2016 6:05 corpuscul on in AM ar source hemoglobi data n concentra tion [Mass/vol ume] by Automated count Erythrocy 82.2 - fl Normal No Jun 18 te mean 97.8 informati 2017 6:05 corpuscul on in AM ar volume source [Entitic data volume] by Automated count Monocytes 0.1 - 1.0 K/mm3 Normal No Jun 18 informati 2017 6:05 [#/volume on in AM ] in source Blood by data Automated count Monocytes 1.7 - 9.3 % Normal No Jun 18 /100 informati 2016 6:05 leukocyte on in AM s in source Blood by data Automated count Platelet 7.4 - fl Normal No Jun 18 mean 10.4 informati 2017 6:05 volume on in AM [Entitic source volume] data in Blood by Automated count Platelets 142 - 424 K/mm3 Normal No Jun 18 informati 2017 6:05 [#/volume on in AM ] in source Blood data Erythrocy 4.6 - 6.2 M/mm3 Low No Jun 18 jefe informati 2017 6:05 [#/volume on in AM ] in source Amniotic data fluid Erythrocy 11.5 - % Normal No Jun 18 te 17.5 informati 2016 6:05 distribut on in AM ion width source [Entitic data volume] by Automated count Leukocyte 4.8 - K/MM3 Normal No Jun 18 s 10.8 informati 2017 6:05 [#/volume on in AM ] in source Blood data Basic metabolic panel in Blood Observa Value Referen Units Interpr Notes Date tion ce etation Range Urea 7 - 18 mg/dL High No Jun 17 nitrogen informati 2016 6:05 [Mass/vol on in AM ume] in source Serum or data Plasma Calcium 8.5 - mg/dL Normal No Jun 17 [Mass/vol 10.1 informati 2016 6:05 ume] in on in AM Serum or source Plasma data Chloride 98 - 107 mmoL/L High No Jun 17 [Moles/vo informati 2016 6:05 lume] in on in AM Serum or source Plasma data Carbon 21.0 - mmoL/L Normal No Jun 17 dioxide, 32.0 informati 2017 6:05 total on in AM [Moles/vo source lume] in data Serum or Plasma Creatinin 0.70 - mg/dL High No Jun 17 e 1.30 informati 2016 6:05 [Mass/vol on in AM ume] in source Serum or data Plasma Creatinin 50 - 200 ML/MIN Low No Jun 17 e renal informati 2017 6:05 clearance on in AM source predicted data by Cockcroft -Gault formula Estimated >60 ML/MIN No REFERENCE Jun 17 informati RANGE: 2017 6:05 glomerula on in >60 AM r source ML/MIN/1. filtratio data 73 SQUARE n rate METERSIf (GF this patient is -A merican, then multiply theresult by 1.210. Glucose 74 - 106 mg/dL High No Jun 17 [Mass/vol informati 2016 6:05 ume] in on in AM Serum or source Plasma data Potassium 3.5 - 5.1 mmoL/L Normal No Jun 17 informati 2016 6:05 [Moles/vo on in AM lume] in source Serum or data Plasma Sodium 136 - 145 mmoL/L Normal No Jun 17 [Moles/vo informati 2017 6:05 lume] in on in AM Serum or source Plasma data CBC W Auto Differential panel in Blood Observa Value Referen Units Interpr Notes Date tion ce etation Range Basophils 0 - 0.2 K/MM3 Normal No Jun 17 informati 2016 6:05 [#/volume on in AM ] in source Blood by data Automated count Basophils 0.1 - 2.0 % Normal No Jun 17 /100 informati 2017 6:05 leukocyte on in AM s in source Blood by data Automated count Eosinophi 0.0 - 0.4 K/mm3 High No Jun 17 ls informati 2016 6:05 [#/volume on in AM ] in source Blood by data Automated count Eosinophi 0.1 - % Normal No Jun 17 ls/100 12.0 informati 2016 6:05 leukocyte on in AM s in source Blood by data Automated count Granulocy 1.3 - 8.0 K/mm3 Normal No Jun 17 jefe informati 2016 6:05 [#/volume on in AM ] in source Blood by data Automated count Granulocy 37.0 - % Normal No Jun 17 jefe/100 80.0 informati 2016 6:05 leukocyte on in AM s in source Blood by data Automated count Hematocri 42.0 - % Low No Jun 17 t [Volume 52.0 informati 2016 6:05 on in AM Fraction] source of Blood data Hemoglobi 14.1 - g/dL Low No Jun 17 n 18.0 informati 2016 6:05 [Mass/vol on in AM ume] in source Blood data Lymphocyt 0.7 - 4.5 K/mm3 Normal No Jun 17 es informati 2017 6:05 [#/volume on in AM ] in source Unspecifi data ed specimen by Automated count Lymphocyt 10 - 50 % Normal No Jun 17 es informati 2017 6:05 [#/volume on in AM ] in source Unspecifi data ed specimen by Automated count Erythrocy 27 - 31.2 pg Normal No Jun 17 te mean informati 2016 6:05 corpuscul on in AM ar source hemoglobi data n [Entitic mass] Erythrocy 31.8 - g/dl Normal No Jun 17 te mean 35.4 informati 2017 6:05 corpuscul on in AM ar source hemoglobi data n concentra tion [Mass/vol ume] by Automated count Erythrocy 82.2 - fl Normal No Jun 17 te mean 97.8 informati 2016 6:05 corpuscul on in AM ar volume source [Entitic data volume] by Automated count Monocytes 0.1 - 1.0 K/mm3 Normal No Jun 17 informati 2016 6:05 [#/volume on in AM ] in source Blood by data Automated count Monocytes 1.7 - 9.3 % Normal No May 28 /100 informati 2017 6:05 leukocyte on in AM s in source Blood by data Automated count Platelet 7.4 - fl Normal No Jun 17 mean 10.4 informati 2017 6:05 volume on in AM [Entitic source volume] data in Blood by Automated count Platelets 142 - 424 K/mm3 Normal No Jun 17 informati 2017 6:05 [#/volume on in AM ] in source Blood data Erythrocy 4.6 - 6.2 M/mm3 Low No Jun 17 jefe informati 2016 6:05 [#/volume on in AM ] in source Amniotic data fluid Erythrocy 11.5 - % Normal No Jun 17 te 17.5 informati 2017 6:05 distribut on in AM ion width source [Entitic data volume] by Automated count Leukocyte 4.8 - K/MM3 Normal No Jun 17 s 10.8 informati 2016 6:05 [#/volume on in AM ] in source Blood data Basic metabolic panel in Blood Observa Value Referen Units Interpr Notes Date tion ce etation Range Urea 7 - 18 mg/dL High No Jun 16 nitrogen informati 2017 6:20 [Mass/vol on in AM ume] in source Serum or data Plasma Calcium 8.5 - mg/dL Normal No Jun 16 [Mass/vol 10.1 informati 2017 6:20 ume] in on in AM Serum or source Plasma data Chloride 98 - 107 mmoL/L High No Jun 16 [Moles/vo informati 2016 6:20 lume] in on in AM Serum or source Plasma data Carbon 21.0 - mmoL/L Normal No Jun 16 dioxide, 32.0 informati 2016 6:20 total on in AM [Moles/vo source lume] in data Serum or Plasma Creatinin 0.70 - mg/dL High No May 27 e 1.30 informati 2017 6:20 [Mass/vol on in AM ume] in source Serum or data Plasma Creatinin 50 - 200 ML/MIN Low No May 27 e renal informati 2017 6:20 clearance on in AM source predicted data by Cockcroft -Gault formula Estimated >60 ML/MIN No REFERENCE Jun 16 informati RANGE: 2017 6:20 glomerula on in >60 AM r source ML/MIN/1. filtratio data 73 SQUARE n rate METERSIf (GF this patient is -A merican, then multiply theresult by 1.210. Glucose 74 - 106 mg/dL High No Jun 16 [Mass/vol informati 2016 6:20 ume] in on in AM Serum or source Plasma data Potassium 3.5 - 5.1 mmoL/L Normal No Jun 16 informati 2016 6:20 [Moles/vo on in AM lume] in source Serum or data Plasma Sodium 136 - 145 mmoL/L Normal No Jun 16 [Moles/vo informati 2016 6:20 lume] in on in AM Serum or source Plasma data CBC W Auto Differential panel in Blood Observa Value Referen Units Interpr Notes Date tion ce etation Range Basophils 0 - 0.2 K/MM3 Normal No Jun 16 informati 2016 6:20 [#/volume on in AM ] in source Blood by data Automated count Basophils 0.1 - 2.0 % Normal No Jun 16 informati 2016 6:20 leukocyte on in AM s in source Blood by data Automated count Eosinophi 0.0 - 0.4 K/mm3 Normal No Jun 16 ls informati 2016 6:20 [#/volume on in AM ] in source Blood by data Automated count Eosinophi 0.1 - % Normal No Jun 16 ls/100 12.0 informati 2016 6:20 leukocyte on in AM s in source Blood by data Automated count Granulocy 1.3 - 8.0 K/mm3 High No Jun 16 jefe informati 2016 6:20 [#/volume on in AM ] in source Blood by data Automated count Granulocy 37.0 - % Normal No Jun 16 jefe/100 80.0 informati 2016 6:20 leukocyte on in AM s in source Blood by data Automated count Hematocri 42.0 - % Low No Jun 16 t [Volume 52.0 informati 2016 6:20 on in AM Fraction] source of Blood data Hemoglobi 14.1 - g/dL Low No Jun 16 n 18.0 informati 2016 6:20 [Mass/vol on in AM ume] in source Blood data Lymphocyt 0.7 - 4.5 K/mm3 Normal No Jun 16 es informati 2016 6:20 [#/volume on in AM ] in source Unspecifi data ed specimen by Automated count Lymphocyt 10 - 50 % Normal No Jun 16 es informati 2016 6:20 [#/volume on in AM ] in source Unspecifi data ed specimen by Automated count Erythrocy 27 - 31.2 pg Normal No Jun 16 te mean informati 2016 6:20 corpuscul on in AM ar source hemoglobi data n [Entitic mass] Erythrocy 31.8 - g/dl Normal No Jun 16 te mean 35.4 informati 2016 6:20 corpuscul on in AM ar source hemoglobi data n concentra tion [Mass/vol ume] by Automated count Erythrocy 82.2 - fl Normal No Jun 16 te mean 97.8 informati 2016 6:20 corpuscul on in AM ar volume source [Entitic data volume] by Automated count Monocytes 0.1 - 1.0 K/mm3 Normal No Jun 16 informati 2016 6:20 [#/volume on in AM ] in source Blood by data Automated count Monocytes 1.7 - 9.3 % Normal No Jun 16 /100 informati 2016 6:20 leukocyte on in AM s in source Blood by data Automated count Platelet 7.4 - fl Normal No Jun 16 mean 10.4 informati 2016 6:20 volume on in AM [Entitic source volume] data in Blood by Automated count Platelets 142 - 424 K/mm3 No No Jun 16 informati informati 2016 6:20 [#/volume on in on in AM ] in source source Blood data data Erythrocy 4.6 - 6.2 M/mm3 Low No Jun 16 jfee informati 2016 6:20 [#/volume on in AM ] in source Amniotic data fluid Erythrocy 11.5 - % Normal No Jun 16 te 17.5 informati 2016 6:20 distribut on in AM ion width source [Entitic data volume] by Automated count Leukocyte 4.8 - K/MM3 High No Jun 16 s 10.8 informati 2016 6:20 [#/volume on in AM ] in source Blood data Hemoglobin & Hematocrit panel in Blood Observa Value Referen Units Interpr Notes Date tion ce etation Range COMMENTS TO SNOW RANGER: POST TRANSFUSION Hematocri 42.0 - % Low No Jun 16 t [Volume 52.0 informati 2017 3:45 on in AM Fraction] source of Blood data Hemoglobi 14.1 - g/dL Low Jun 16 n 18.0 2016 3:45 [Mass/vol AM ume] in Blood Blood product special preparation [Type] Observa Value Referen Units Interpr Notes Date tion ce etation Range Blood BLOOD No No No BLOOD Jun 16 product UNIT informa informa informa UNIT # 2017 RELEASE tion in tion in tion in : W0382 special source source source 17 data data data [id number] prepara RELEASE tion D [Type] Geni barajasJoonstevo light Blood product special preparation [Type] Observa Value Referen Units Interpr Notes Date ti ce etation Range Blood BLOOD No No No BLOOD Jun 15 product UNIT informa informa informa UNIT # 2017 RELEASE tion in tion in tion in : W0382 8:22 PM special source source source 17 data data data [id number] prepara RELEASE tion D [Type] 7O'Nupur Leary Hemoglobin & Hematocrit panel in Blood Observa Value Referen Units Interpr Notes Date ti ce etation Range Hematocri 42.0 - % Low alert Jun 15 t [Volume 52.0 2016 7:29 CRITICAL PM Fraction] RESULTS of Blood RESU LTS CALLED TO: BOBBY 06/15/17 1950 O'GibranGely guallpa Hemoglobi 14.1 - g/dL Low alert Jun 15 n 18.0 2016 7:29 [Mass/vol CRITICAL PM ume] in RESULTS Blood RESU LTS CALLED TO: [id number] 1949 O'Gely Leary Blood type & Crossmatch panel in Blood Observa Value Referen Units Interpr Notes Date tion ce etation Range Hold? N Transfuse now? 1 UNIT NOW Major COMPAT No No No No Jun 15 crossma informa informa informa informa 2017 tch tion in tion in tion in tion in 5:05 PM [interp source source source source retatio data data data data n] Major COMPAT No No No No Jun 15 crossma informa informa informa informa 2017 tch tion in tion in tion in tion in 5:05 PM [interp source source source source retatio data data data data n] by Immedia te spin Blood type & Crossmatch panel in Blood Observa Value Referen Units Interpr Notes Date ti ce etation Range Hold? N Transfuse now? 1 UNIT NOW Blood NEGATIV NEGATIV No No No Jun 15 group E E informa informa informa 2016 antibod tion in tion in tion in 5:05 PM y source source source screen data data data [Presen ce] in Serum or Plasma Rh POSITIV No No No No Jun 15 [Type] E informa informa informa informa 2016 in tion in tion in tion in tion in 5:05 PM Blood source source source source data data data data ABO O No No No No Jun 15 group informa informa informa informa 2016 [Type] tion in tion in tion in tion in 5:05 PM in source source source source Blood data data data data Blood type & Crossmatch panel in Blood Observa Value Referen Units Interpr Notes Date ti ce etation Range Hold? N Transfuse now? 1 UNIT NOW Major COMPAT No No No No Jun 15 crossma informa informa informa informa 2016 tch tion in tion in tion in tion in 5:05 PM [interp source source source source retatio data data data data n] Major COMPAT No No No No Jun 15 crossma informa informa informa informa 2016 tch tion in tion in tion in tion in 5:05 PM [interp source source source source retatio data data data data n] by Immedia te spin Comprehensive metabolic 2000 panel in Serum or Plasma Observa Value Referen Units Interpr Notes Date ti ce etation Range Albumin/G 1.1 - 1.8 No Low No Jun 14 lobulin informati informati 2016 8:50 [Mass on in on in AM ratio] in source source Serum or data data Plasma Albumin 3.4 - 5.0 gm/dL Low No Jun 14 [Mass/vol informati 2016 8:50 ume] in on in AM Serum or source Plasma data Alkaline 46 - 116 U/L High No Jun 14 phosphata informati 2016 8:50 se on in AM [Enzymati source c data activity/ volume] in Serum or Plasma Bilirubin 0.2 - 1.0 mg/dL Normal No Jun 14 .total informati 2016 8:50 [Mass/vol on in AM ume] in source Serum or data Plasma Urea 7 - 18 mg/dL High Jun 14 nitrogen NOTIFICAT 2017 8:50 [Mass/vol ION AM ume] in RESULT Serum or Plasma Calcium 8.5 - mg/dL High No Jun 14 [Mass/vol 10.1 informati 2016 8:50 ume] in on in AM Serum or source Plasma data Chloride 98 - 107 mmoL/L Normal No Jun 14 [Moles/vo informati 2016 8:50 lume] in on in AM Serum or source Plasma data Carbon 21.0 - mmoL/L Normal No Jun 14 dioxide, 32.0 informati 2016 8:50 total on in AM [Moles/vo source lume] in data Serum or Plasma Creatinin 0.70 - mg/dL High No Jun 14 e 1.30 informati 2016 8:50 [Mass/vol on in AM ume] in source Serum or data Plasma Creatinin 50 - 200 ML/MIN Low No Jun 14 e renal informati 2016 8:50 clearance on in AM source predicted data by Cockcroft -Gault formula Estimated >60 ML/MIN No REFERENCE Jun 14 informati RANGE: 2017 8:50 glomerula on in [...] - 37 U/L Normal No Jun 14 informati 2016 8:50 aminotran on in AM sferase source [...] - 0.2 K/MM3 Normal No Jun 14 informati 2016 8:50 [...] Normal No Jun 14 te mean 97.8 inform2016 8:50 corpuscul on in AM ar volume source [Entitic data volume] by Automated count Monocytes 0.1 - 1.0 K/mm3 Normal No Jun 14 inform2016 8:50 [#/volume [...] - 424 K/mm3 Normal No Jun 14 inform2016 8:50 [#/volume [...] count Leukocyte 4.8 - K/MM3 High No Jun 14 s 10.8 informati 2016 8:50 [#/volume on in AM ] in source Blood data Cardiac enzymes Observa Value Referen Units Interpr Notes Date tion ce etation Range Creatine 0 - 4.0 U/L Normal No May 28 kinase.MB inform2016 /Creatine on in 12:20 AM source kinase.to [...] or RESU Plasma LTS CALLED TO: Bridget GEORGE TECH 05/28/17 [id number] Tay alba> 0.5 IS CONSISTEN T WITH MYOCARDIA L ISCHEMIA OR INFARCTIO N Comprehensive metabolic 2000 panel in Serum or Plasma Observa Value Referen Units Interpr Notes Date tion ce etation Range Albumin/G 1.1 - 1.8 No Low No Oct 8 lobulin informati informati 2017 [Mass on in on in 12:20 AM ratio] in source source Serum or data data Plasma Albumin 3.4 - 5.0 gm/dL Low No Oct 8 [Mass/vol informati 2017 ume] in on in 12:20 AM Serum or source Plasma data Alkaline 46 - 116 U/L Normal No Oct 8 phosphata informati 2017 se on in 12:20 AM [Enzymati source c data activity/ volume] in Serum or Plasma Bilirubin 0.2 - 1.0 mg/dL Normal No Oct 8 .total informati 2017 [Mass/vol on in 12:20 AM [...] Chloride 98 - 107 mmoL/L High No Oct 8 [Moles/vo informati 2017 lume] [...] 1.3 - 3.2 gm/dL High No May 28 [Mass/vol informati 2016 ume] in on in 12:20 AM Serum source data Glucose 74 - 106 mg/dL High No May 28 [Mass/vol informati 2016 ume] in on in 12:20 AM Serum or source Plasma data Potassium 3.5 - 5.1 mmoL/L Normal No May 282016 [Moles/vo on in 12:20 AM lume] in source Serum or data Plasma Sodium 136 - 145 mmoL/L Normal No May 28 [Moles/vo informati 2016 lume] in on in 12:20 AM Serum or source Plasma data Aspartate 15 - 37 U/L Normal No May 282016 aminotran on in 12:20 AM sferase source [Enzymati data c activity/ volume] in Serum or Plasma Alanine 12 - 78 U/L Normal No May 28 aminotran 2016 sferase on in 12:20 AM [Enzymati source c data activity/ volume] in Serum or Plasma Protein 6.4 - 8.2 gm/dL Normal No May 28 [Mass/vol informati 2016 ume] [...] 0.4 K/mm3 Normal No May 28 ls ati 2016 [#/volume on in 12:20 AM ] in source Blood by data Automated count Eosinophi 0.1 - % Normal No May 28 ls/100 12.0 inform2016 leukocyte on in 12:20 AM s in source Blood by data Automated count Granulocy 1.3 - 8.0 K/mm3 Normal No May 28 jefe inform2016 [#/volume on in 12:20 AM ] [...] g/dL Low No May 28 n 18.0 inform2016 [Mass/vol on in 12:20 AM ume] in source Blood data Lymphocyt 0.7 - 4.5 K/mm3 Normal No May 28 es 2016 [#/volume on in 12:20 AM ] in source Unspecifi data ed specimen by Automated count Lymphocyt 10 - 50 % Normal No May 28 es inform2016 [#/volume on in 12:20 AM ] [...] Normal No May 28 te mean 97.8 inform2016 corpuscul on in 12:20 AM ar volume source [Entitic data volume] by Automated count Monocytes 0.1 - 1.0 K/mm3 Normal No May 282016 [#/volume on in 12:20 AM ] in source Blood by data Automated count Monocytes 1.7 - 9.3 % Normal No May 28 /100 2016 leukocyte on in 12:20 AM s in source Blood by data Automated count Platelet 7.4 - fl Normal No May 28 mean 10.4 2016 volume on in 12:20 AM [Entitic [...] % Normal No May 28 te 17.5 2016 distribut on in 12:20 AM ion width source [Entitic data volume] by Automated count Leukocyte 4.8 - K/MM3 Normal No May 8 s 10.8 informati 2017 [#/volume on in 12:20 AM ] in [...] 37.0 - % Normal No Sep 21 jeef/100 80.0 informati 2016 6:30 leukocyte on in [...] Normal No Sep 21 mean 10.4 informati 2016 6:30 volume on in AM [Entitic source [...] Plasma LTS CALLED TO: BRIGHT 05/10/17 0937 Cracraft, Elo> 0.5 IS CONSISTEN T WITH MYOCARDIA L ISCHEMIA OR INFARCTIO N Lipid 1996 panel in Serum or Plasma Observa Value Referen Units Interpr Notes Date tion ce etation Range COMMENTS TO SNOW RANGER: PER [place] PROTOCOL Cholester < 200 mg/dL No No [...] LTS CALLED TO: ADDIS Rose 05/10/17 0320 HarshilRita ictoria Sodium 136 - 145 mmoL/L Low No Sep 20 [Moles/vo informati 2017 2:10 lume] in on in AM Serum or source Plasma data Aspartate 15 - 37 U/L Normal No Sep 20 informati 2017 2:10 aminotran on in AM sferase source [Enzymati data c activity/ volume] in Serum or Plasma Alanine 12 - 78 U/L Normal No Sep 20 aminotran informati 2016 2:10 sferase on in AM [Enzymati [...] 0.2 K/MM3 Normal No Sep 20 informati 2017 2:10 [...] Normal No Sep 13 ls/100 12.0 informati 2017 6:00 leukocyte on in AM [...] Normal No Sep 13 mean 10.4 informati 2016 6:00 volume on in AM [Entitic source [...] Normal No Sep 12 te mean informati 2016 6:10 corpuscul on in AM ar source [...] No No Sep 11 s informati informati 2016 9:30 [#/volume on in on in AM [...] No Sep 11 of informa informa informa 2016 Urine tion in tion in tion in [...] High No Sep 11 [Mass/vol informati 2016 9:30 ume] in on in AM Urine [...] - 37 U/L High No Sep 11 inform2016 8:10 aminotran on in AM sferase source [...] Normal No Sep 11 ls/100 12.0 informati 2016 8:10 leukocyte on in AM s in source Blood by data Automated count Granulocy 1.3 - 8.0 K/mm3 High No Sep 11 jefe informati 2016 8:10 [#/volume on in AM ] in source Blood by data Automated count Granulocy 37.0 - % Normal No Sep 11 jefe/100 80.0 informati 2016 8:10 leukocyte on in AM [...]
--- OUTSIDE RECORDS SUMMARY | 2017-06-28 15:29 | External Medical Summary Rpt ---
[...] - 6.2 M/mm3 Low No Jun 16 jefe informati 2016 6:20 [...] Date tion ce etation Range COMMENTS TO CELERY TIER: POST TRANSFUSION Hematocri 42.0 - % Low [...] source source source 17 data data data [id number] prepara RELEASE tion D [Type] Geni barajasJoonstevo light Blood product special preparation [Type] Observa Value Referen Units Interpr Notes Date ti ce etation Range Blood BLOOD No No No BLOOD Jun 15 product UNIT informa informa informa UNIT # 2017 RELEASE tion in tion in tion in : [id number] 8:22 PM special source source source 17 data data data [id number] prepara RELEASE tion D [Type] 7O'Nupur Leary [...] Date tion ce etation Range COMMENTS TO CELERY TIER: PER [place] PROTOCOL Cholester < 200 mg/dL No No [...]
--- NOTE | 2017-06-28 15:38 | Emergency Room Report ---
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 JAIL STAFF REPORTS PT HAD 2 SEIZURES THAT LASTED 40 SECS EACH WITH NO INCONTINENCE. 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 N Clinical Suspician of Infection? N Mental Status: 1 - Regular (Normal Baseline) Sepsis Risk:Low Sepsis Risk Have you (or family members/close friends) recently traveled outside the [place]? N If Yes, where/when: Have you had exposure to infectious disease within the past month? TB? Other? Specify: Comment The patient was brought in by ambulance from [facility] for seizures. He is reported to have had 2 seizures, each 40 seconds today. No incontinence. Per nursing report, there is some indication from his records that at one point been on Keppra. He is not listed to have a seizure disorder on his residential paperwork. The patient is currently at [facility] for rehabilitation from a hip fracture this spring. His physician prior to being sent to rehab was Dr. Sexton, Dr. Lindquist is the physician at the residential for the patient. The patient is not on any anticonvulsant medication at the residential right now. Per the patient's and [id number], he has a history of seizures, the thinks this goes back 2 years, but she states "they are getting worse". He is that he had been on seizure medication prescribed by Dr. Sexton, but she says since he has been at the residential he has not been on seizure medication. Review of his records here indicates that he was seen on April for suspected seizure activity and also had a non-STEMI at that time. His emergency department record indicates that he had also been admitted to [facility] in March for seizure activity. Family tells me that he stayed 3 days at [facility], they do not know what tests he had, but they believe that he was put on medications for seizures. ALLERGIES Coded Allergies: BANANAS (FOOD) (05/01/17) Cantaloupe (05/10/17) watermelon (05/10/17) Home Medications Active Scripts Atorvastatin Calcium (Atorvastatin) 40 MG PO QHS #30 TAB Ref 11 Prov: 05/04/17 Carvedilol 3.125 MG PO BID #60 TAB Ref 2 Prov: 05/10/17 Clopidogrel Bisulfate (Plavix) 75 MG PO DAILY #30 TAB Ref 5 Prov: 05/10/17 Potassium Chloride (Klor-Con M20) 20 MEQ PO BID #60 TER Ref 2 Prov: 05/11/17 HYDROCODONE/ACETAMINOPHEN ([place] 5-325 Tablet) 1 TAB PO Q4HP PRN MODERATE TO SEVERE PAIN #120 TAB Prov: 06/19/17 Psyllium Husk/Aspartame (Metamucil Powder) 662 GM PO DAILY #120 Ref 11 Prov: 06/19/17 Reported Medications ASPIRIN (Aspirin) 81 MG PO DAILY MULTIVITAMIN (Daily Multiple Vitamin) 1 TAB PO DAILY Amlodipine Besylate (Amlodipine) 5 MG PO DAILY AMLODIPINE BESYLATE (Norvasc) 10 MG PO DAILY History Medical History General CAD? No Angina: No MO: No Hypertension? Yes Hyperlipidemia? No CHF? No DVT? No PE? No COPD? No Asthma? No Anemia? No GERD? No Gastric ulcers? No GI Bleed? No Hernia? No Thyroid Problems? No Hypothyroidism? No CVA? No Seizures? Yes Diabetes? No Renal Insuffiency? No End Stage Renal Disease? No UTI? No Stones? No BPH? No GB Disease: No Nephritic Syndrome? No Asplenia? No Hepatitis? No Sickle Cell Disease? No Arthritis? No Migraines? No Cataracts? No Glaucoma? No MRSA? No HIV? No TB? No Anxiety? No Depression? No Cancer? No More? No Immunization Hx DT/Tetanus Unknown Flu Refused Pneumonia Refuses Surgical Hx Previous Surgery?Y MASTOID CAROTID CARDIAC STENTS X3 Family History Family Hx Diabetes Yes CAD Yes Hypertension No Hyperlipidemia No Cancer No TB No Social History Smoking Hx Smoker: Former Smoker Tobacco: No Packs/day < 1 Pack Alcohol Alcohol: No Review of Systems All Other Systems Reviewed and Negative (unobtainable, AMS) Physical Exam Vital Signs Vital Signs Date Time Temp Pulse Resp B/P Pulse O2 O2 Flow FiO2 Ox Delivery Rate 06/28 1739 91 06/28 1739 98.5 87 20 136/83 06/28 1739 94 ROOM AIR 06/28 1713 98.0 91 18 146/71 94 06/28 1628 81 18 148/79 95 06/28 1543 18 06/28 1513 97.9 81 18 153/87 95 General Appearance post ictal Eye Exam - bilateral eye PERRL Ear, Nose, Throat normal ENT inspection Neck normal inspection, supple Respiratory Status Yes: trachea midline, chest symmetrical. No: respiratory distress. Lung Sounds bilateral: normal breath sounds, lungs clear. Cardiovascular normal exam, regular rate/rhythm, no peripheral edema, no gallop, no JVD, no murmur, no rub, normal peripheral pulses Peripheral Pulses Pulses normal Yes Gastrointestinal normal bowel sounds, normal exam, non tender, soft, no organomegaly Extremities decubitus ulcers of heels Neurologic postictal, drowsy, moves all 4 extremities, makes purposeful movements Mental status altered mental status Skin normal color, warm/dry Medical Decision Making LABS/Meds/Orders Pt receiving controlled substance in ED? Yes Jose Miguel was queried for this patient? No Reason not queried - emergent pt cond=no time Results/Orders Laboratory Tests 06/28/17 1608: Urine Color YELLOW, Urine Appearance CLEAR, Urine pH 5.0, Ur Specific Rison >= 1.030, Urine Protein 1+ H, Urine Ketones NEGATIVE, Urine Blood 1+ H, Urine Nitrate NEGATIVE, Urine Bilirubin NEGATIVE, Urine Urobilinogen 0.2, Ur Leukocyte Esterase NEGATIVE, Urine RBC 5-10, Urine WBC 5-10, Ur Squamous Epith Cells 5-10, Amorphous Sediment 2+, Urine Bacteria 2+, Hyaline Casts 5-10, WBC Casts 5-10, Urine Glucose NEGATIVE 06/28/17 1542: Sodium 137, Potassium 4.3, Chloride 103, Carbon Dioxide 18 L, BUN 28 H, Creatinine 2.7 H, Estimated Creat Clear 19 L, Estimated GFR (MDRD) 22, Glucose 137 H, Calcium 8.9, Total Bilirubin 0.5, AST 15, ALT 14, Alkaline Phosphatase 124 H, Troponin I 0.04, Total Protein 7.1, Albumin 3.0 L, Globulin 4.1 H, Albumin/Globulin Ratio 0.7 L, WBC 11.9 H, RBC 3.50 L, Hgb 10.5 L, Hct 34.1 L, MCV 97.3, RDW 15.4, Plt Count 286, MPV 8.1, Gran % 85.9 H, Gran # 10.3 H, Total Counted 100, Lymphocytes % 9.1 L, Monocytes % 3.8, Eosinophils % 0.3, Basophils % 0.8, Neutrophils 85 H, Lymphocytes (Manual) 9 L, Lymphocytes # 1.1 , Monocytes (Manual) 3, Monocytes # 0.5, Eosinophils # 0.0, Eosinophils # ( Manual) 1, Basophils # 0.1, Basophils # (Manual) 1, Metamyelocytes 1, Platelet Estimate NORMAL, PUBS MCHC 30.9 L, MCH 30.1 06/28/17 1533: POC Glucose 142 H Current Medication Orders Sig/David Start time Last Medication Dose Route Stop Time Status Admin Amlodipine Besylate 5 MG DAILY 06/29 900 UNV PO Aspirin 81 MG DAILY 06/29 900 UNV PO Clopidogrel Bisulfate 75 MG DAILY 06/29 900 UNV PO Atorvastatin Calcium 40 MG QHS 06/28 2100 UNV PO Carvedilol 3.125 MG BID 06/28 2100 UNV PO Levetiracetam 500 MG BID 06/28 2100 UNV PO Potassium Chloride 20 MEQ BID 06/28 2100 UNV PO Sodium Chloride 10 ML PRN PRN 06/28 1715 UNV IV Influenza Virus 0.5 ML PRN PRN 06/28 1700 UNV Vaccine Quadrival IM Nicotine 21 MG DAILYP PRN 06/28 1700 UNV TD Levetiracetam 1,000 MG ONCE ONE 06/28 1545 DC 06/28 Sodium Chloride 100 ML IV 06/28 1600 1610 Lorazepam 1 MG ONCE ONE 06/28 1545 DC 06/28 IV 06/28 1546 1543 Sodium Chloride 10 ML PRN PRN 06/28 1545 AC IV 06/29 1533 Lorazepam 0 .STK-MED ONE 06/28 1541 DC .ROUTE Orders Procedure Date/time Status TROPONIN I 06/29 0500 Active TROPONIN I 06/29 0100 Active DIET-REGULAR ( TOLERATED) 06/28 D Active TROPONIN I 06/28 2100 Active Decision to admit 06/28 1609 Active CULTURE, URINE 06/28 1608 Active DIFFERENTIAL-WBC 06/28 1542 Complete ELECTROCARDIOGRAM REQUEST 06/28 1534 Active IV SALINE LOCK 06/28 1534 Active GEN NSG/PT REQ (NOT FOR MEDS!) 06/28 1534 Active URINALYSIS/COMPLETE 06/28 1534 Complete TROPONIN I 06/28 1534 Complete CBC WITH AUTO DIFF 06/28 1534 Complete CHEM 12 PROFILE 06/28 1534 Complete FINGERSTICK BLOOD SUGAR 06/28 1533 Complete ADMIT PATIENT 06/28 UNK Active PULSE OXIMETRY REQUEST 06/28 UNK Active OXYGEN REQUEST 06/28 UNK Active VITAL SIGNS 06/28 UNK Active 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 POM NURSE NATALIIA HOSE ORDER 06/28 UNK Active IV SALINE LOCK 06/28 UNK Active GEN NSG/PT REQ (NOT FOR MEDS!) 06/28 UNK Active CODE STATUS 06/28 UNK Active PATIENT ACTIVITY ORDER 06/28 UNK Active Renal insufficiency is chronic (Maykel BAUTISTA, Octavio) CM/EKG CM/EKG Comments EKG interpreted by Octavio Brar MD: Rhythm: sinus Rate: 88 Harrison: normal Ectopy: none Conduction: normal ST Segment Changes: Anterior, inferior, lateral depression T Wave Changes: Anterior, inferior, lateral inversion Q Waves: none No evidence of acute ischemia or injury Progress - The patient had a 45 second seizure during my history and physical. It started with twitching of his face and eyes and then progressed to be a generalized tonic-clonic seizure. Family states that they prefer for Dr. Sexton to take care of the patient in the hospital rather than Dr. Lindquist. 3:40 PM: Case discussed with Dr. Sexton. He states that when the patient is admitted here, he is the attending physician, but he does not go to [facility], where Dr. Lindquist has to be the doctor. He requested the patient be loaded with Keppra, 1 g IV, and then started on 500 mg twice a day. The patient had a CT scan of his head on May 10 for suspected seizure. I discussed repeat CT scan with Dr. Sexton, it is not felt needed at this time since he has already been worked up for seizures. He states that to this point, to his knowledge, no healthcare workers that ever witnessed a definite seizure. He states that to his recollection, when the patient went to [facility] in March he refused workup and treatment for seizures. 3:45 PM: The patient is drowsy, postictal and also drowsy from Ativan, but is making purposeful movements, opens his eyes to command, and moves all 4 extremities. 5:00 PM: Mental status improved. Answers questions. No focal deficits. Departure Departure Disposition Still a Patient Clinical Impression Primary Impression: Seizures Condition STABLE Referrals Flavio Sexton MD (Family) ED Critical Care Critical Care No at 1804
--- NOTE | 2017-06-28 15:38 | Emergency Room Report ---
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 SENIOR CARE STAFF REPORTS PT HAD 2 SEIZURES THAT LASTED 40 SECS EACH WITH NO INCONTINENCE. 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 N Clinical Suspician of Infection? N Mental Status: 1 - Regular (Normal Baseline) Sepsis Risk:Low Sepsis Risk Have you (or family members/close friends) recently traveled outside the [place]? N If Yes, where/when: Have you had exposure to infectious disease within the past month? TB? Other? Specify: Comment The patient was brought in by ambulance from [facility] for seizures. He is reported to have had 2 seizures, each 40 seconds today. No incontinence. Per nursing report, there is some indication from his records that at one point been on Keppra. He is not listed to have a seizure disorder on his detention paperwork. The patient is currently at [facility] for rehabilitation from a hip fracture this spring. His physician prior to being sent to rehab was Dr. Sexton, Dr. Lindquist is the physician at the detention for the patient. The patient is not on any anticonvulsant medication at the detention right now. Per the patient's and [id number], he has a history of seizures, the thinks this goes back 2 years, but she states "they are getting worse". He is that he had been on seizure medication prescribed by Dr. Sexton, but she says since he has been at the detention he has not been on seizure medication. Review of his records here indicates that he was seen on April for suspected seizure activity and also had a non-STEMI at that time. His emergency department record indicates that he had also been admitted to [facility] in March for seizure activity. Family tells me that he stayed 3 days at [facility], they do not know what tests he had, but they believe that he was put on medications for seizures. ALLERGIES Coded Allergies: BANANAS (FOOD) (05/01/17) Cantaloupe (05/10/17) watermelon (05/10/17) Home Medications Active Scripts Atorvastatin Calcium (Atorvastatin) 40 MG PO QHS #30 TAB Ref 11 Prov: 05/04/17 Carvedilol 3.125 MG PO BID #60 TAB Ref 2 Prov: 05/10/17 Clopidogrel Bisulfate (Plavix) 75 MG PO DAILY #30 TAB Ref 5 Prov: 05/10/17 Potassium Chloride (Klor-Con M20) 20 MEQ PO BID #60 TER Ref 2 Prov: 05/11/17 HYDROCODONE/ACETAMINOPHEN ([place]atin[place] 5-325 Tablet) 1 TAB PO Q4HP PRN MODERATE TO SEVERE PAIN #120 TAB Prov: 06/19/17 Psyllium Husk/Aspartame (Metamucil Powder) 662 GM PO DAILY #120 Ref 11 Prov: 06/19/17 Reported Medications ASPIRIN (Aspirin) 81 MG PO DAILY MULTIVITAMIN (Daily Multiple Vitamin) 1 TAB PO DAILY Amlodipine Besylate (Amlodipine) 5 MG PO DAILY AMLODIPINE BESYLATE (Norvasc) 10 MG PO DAILY History Medical History General CAD? No Angina: No [place]: No Hypertension? Yes Hyperlipidemia? No CHF? No DVT? No PE? No COPD? No Asthma? No Anemia? No GERD? No Gastric ulcers? No GI Bleed? No Hernia? No Thyroid Problems? No Hypothyroidism? No CVA? No Seizures? Yes Diabetes? No Renal Insuffiency? No End Stage Renal Disease? No UTI? No Stones? No BPH? No GB Disease: No Nephritic Syndrome? No Asplenia? No Hepatitis? No Sickle Cell Disease? No Arthritis? No Migraines? No Cataracts? No Glaucoma? No MRSA? No HIV? No TB? No Anxiety? No Depression? No Cancer? No More? No Immunization Hx DT/Tetanus Unknown Flu Refused Pneumonia Refuses Surgical Hx Previous Surgery?Y MASTOID CAROTID CARDIAC STENTS X3 Family History Family Hx Diabetes Yes CAD Yes Hypertension No Hyperlipidemia No Cancer No TB No Social History Smoking Hx Smoker: Former Smoker Tobacco: No Packs/day < 1 Pack Alcohol Alcohol: No Review of Systems All Other Systems Reviewed and Negative (unobtainable, AMS) Physical Exam Vital Signs Vital Signs Date Time Temp Pulse Resp B/P Pulse O2 O2 Flow FiO2 Ox Delivery Rate 06/28 1739 91 06/28 1739 98.5 87 20 136/83 06/28 1739 94 ROOM AIR 06/28 1713 98.0 91 18 146/71 94 06/28 1628 81 18 148/79 95 06/28 1543 18 06/28 1513 97.9 81 18 153/87 95 General Appearance post ictal Eye Exam - bilateral eye PERRL Ear, Nose, Throat normal ENT inspection Neck normal inspection, supple Respiratory Status Yes: trachea midline, chest symmetrical. No: respiratory distress. Lung Sounds bilateral: normal breath sounds, lungs clear. Cardiovascular normal exam, regular rate/rhythm, no peripheral edema, no gallop, no JVD, no murmur, no rub, normal peripheral pulses Peripheral Pulses Pulses normal Yes Gastrointestinal normal bowel sounds, normal exam, non tender, soft, no organomegaly Extremities decubitus ulcers of heels Neurologic postictal, drowsy, moves all 4 extremities, makes purposeful movements Mental status altered mental status Skin normal color, warm/dry Medical Decision Making LABS/Meds/Orders Pt receiving controlled substance in ED? Yes Jose Miguel was queried for this patient? No Reason not queried - emergent pt cond=no time Results/Orders Laboratory Tests 06/28/17 1608: Urine Color YELLOW, Urine Appearance CLEAR, Urine pH 5.0, Ur Specific Amo >= 1.030, Urine Protein 1+ H, Urine Ketones NEGATIVE, Urine Blood 1+ H, Urine Nitrate NEGATIVE, Urine Bilirubin NEGATIVE, Urine Urobilinogen 0.2, Ur Leukocyte Esterase NEGATIVE, Urine RBC 5-10, Urine WBC 5-10, Ur Squamous Epith Cells 5-10, Amorphous Sediment 2+, Urine Bacteria 2+, Hyaline Casts 5-10, WBC Casts 5-10, Urine Glucose NEGATIVE 06/28/17 1542: Sodium 137, Potassium 4.3, Chloride 103, Carbon Dioxide 18 L, BUN 28 H, Creatinine 2.7 H, Estimated Creat Clear 19 L, Estimated GFR (MDRD) 22, Glucose 137 H, Calcium 8.9, Total Bilirubin 0.5, AST 15, ALT 14, Alkaline Phosphatase 124 H, Troponin I 0.04, Total Protein 7.1, Albumin 3.0 L, Globulin 4.1 H, Albumin/Globulin Ratio 0.7 L, WBC 11.9 H, RBC 3.50 L, Hgb 10.5 L, Hct 34.1 L, MCV 97.3, RDW 15.4, Plt Count 286, MPV 8.1, Gran % 85.9 H, Gran # 10.3 H, Total Counted 100, Lymphocytes % 9.1 L, Monocytes % 3.8, Eosinophils % 0.3, Basophils % 0.8, Neutrophils 85 H, Lymphocytes (Manual) 9 L, Lymphocytes # 1.1 , Monocytes (Manual) 3, Monocytes # 0.5, Eosinophils # 0.0, Eosinophils # ( Manual) 1, Basophils # 0.1, Basophils # (Manual) 1, Metamyelocytes 1, Platelet Estimate NORMAL, PUBS MCHC 30.9 L, MCH 30.1 06/28/17 1533: POC Glucose 142 H Current Medication Orders Sig/David Start time Last Medication Dose Route Stop Time Status Admin Amlodipine Besylate 5 MG DAILY 06/29 900 UNV PO Aspirin 81 MG DAILY 06/29 900 UNV PO Clopidogrel Bisulfate 75 MG DAILY 06/29 900 UNV PO Atorvastatin Calcium 40 MG QHS 06/28 2100 UNV PO Carvedilol 3.125 MG BID 06/28 2100 UNV PO Levetiracetam 500 MG BID 06/28 2100 UNV PO Potassium Chloride 20 MEQ BID 06/28 2100 UNV PO Sodium Chloride 10 ML PRN PRN 06/28 1715 UNV IV Influenza Virus 0.5 ML PRN PRN 06/28 1700 UNV Vaccine Quadrival IM Nicotine 21 MG DAILYP PRN 06/28 1700 UNV TD Levetiracetam 1,000 MG ONCE ONE 06/28 1545 DC 06/28 Sodium Chloride 100 ML IV 06/28 1600 1610 Lorazepam 1 MG ONCE ONE 06/28 1545 DC 06/28 IV 06/28 1546 1543 Sodium Chloride 10 ML PRN PRN 06/28 1545 AC IV 06/29 1533 Lorazepam 0 .STK-MED ONE 06/28 1541 DC .ROUTE Orders Procedure Date/time Status TROPONIN I 06/29 0500 Active TROPONIN I 06/29 0100 Active DIET-REGULAR ( TOLERATED) 06/28 D Active TROPONIN I 06/28 2100 Active Decision to admit 06/28 1609 Active CULTURE, URINE 06/28 1608 Active DIFFERENTIAL-WBC 06/28 1542 Complete ELECTROCARDIOGRAM REQUEST 06/28 1534 Active IV SALINE LOCK 06/28 1534 Active GEN NSG/PT REQ (NOT FOR MEDS!) 06/28 1534 Active URINALYSIS/COMPLETE 06/28 1534 Complete TROPONIN I 06/28 1534 Complete CBC WITH AUTO DIFF 06/28 1534 Complete CHEM 12 PROFILE 06/28 1534 Complete FINGERSTICK BLOOD SUGAR 06/28 1533 Complete ADMIT PATIENT 06/28 UNK Active PULSE OXIMETRY REQUEST 06/28 UNK Active OXYGEN REQUEST 06/28 UNK Active VITAL SIGNS 06/28 UNK Active 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 POM NURSE NATALIIA HOSE ORDER 06/28 UNK Active IV SALINE LOCK 06/28 UNK Active GEN NSG/PT REQ (NOT FOR MEDS!) 06/28 UNK Active CODE STATUS 06/28 UNK Active PATIENT ACTIVITY ORDER 06/28 UNK Active Renal insufficiency is chronic (Maykel BAUTISTA, Octavio) CM/EKG CM/EKG Comments EKG interpreted by Octavio Brar MD: Rhythm: sinus Rate: 88 [place]: normal Ectopy: none Conduction: normal ST Segment Changes: Anterior, inferior, lateral depression T Wave Changes: Anterior, inferior, lateral inversion Q Waves: none No evidence of acute ischemia or injury Progress - The patient had a 45 second seizure during my history and physical. It started with twitching of his face and eyes and then progressed to be a generalized tonic-clonic seizure. Family states that they prefer for Dr. Sexton to take care of the patient in the hospital rather than Dr. Lindquist. 3:40 PM: Case discussed with Dr. Sexton. He states that when the patient is admitted here, he is the attending physician, but he does not go to [facility], where Dr. Lindquist has to be the doctor. He requested the patient be loaded with Keppra, 1 g IV, and then started on 500 mg twice a day. The patient had a CT scan of his head on May 10 for suspected seizure. I discussed repeat CT scan with Dr. Sexton, it is not felt needed at this time since he has already been worked up for seizures. He states that to this point, to his knowledge, no healthcare workers that ever witnessed a definite seizure. He states that to his recollection, when the patient went to [facility] in March he refused workup and treatment for seizures. 3:45 PM: The patient is drowsy, postictal and also drowsy from Ativan, but is making purposeful movements, opens his eyes to command, and moves all 4 extremities. 5:00 PM: Mental status improved. Answers questions. No focal deficits. Departure Departure Disposition Still a Patient Clinical Impression Primary Impression: Seizures Condition STABLE Referrals Flavio Sexton MD (Family) ED Critical Care Critical Care No at 1804
--- OUTSIDE RECORDS SUMMARY | 2017-06-28 16:05 | External Medical Summary Rpt | CCD ---
Author Author , VIOLETTA SHIPLEY Address Unknown Phone [email or web address] Purpose Continuity of Care Document - 03-29-2017 through 2016 Results Labs Lab Lab Date Result Refere Interp Status Commen Order Detail nces retati t Range on Glucose capillary blood glucometer (06-28-2017 15:33) Glucose = 142 70-110 complet 017 mg/dl ed capilla 15:[address] CBC w auto diff (06-19-2017 06:05) Blood 10--2 = 8.9 4.8-10. complet leukocy 017 K/MM3 [...] blood 06:05 platele t mean volume deedee [place] % 06-19-2 = 6.7 % 1.7-9.3 complet 017 ed 06:05 Absolut 10--2 = 0.6 0.1-1.0 complet e 017 K/mm3 ed monocyt 06:05 e count Automat 06-19-2 = 97.7 82.2-97 complet ed 017 fl .8 ed erythro 06:05 cyte mean corpusc ular v Automat 06-19-2 = 30.7 31.8-35 complet ed 017 g/dl .4 ed erythro 06:05 cyte mean corpusc ular h Mean 06-19-2 = 30.0 27-31.2 complet corpusc 017 pg ed ular 06:05 hemoglo bin (MCH) determ Lymphoc 10-2 = 19.7 10-50 complet yte 017 % ed count, 06:05 blood, automat ed Absolut = 1.6 0.7-4.5 complet e 017 K/mm3 ed lymphoc 06:05 yte count Blood = 11.0 14.1-18 complet hemoglo 017 g/dL .0 ed bin 06:05 measure ment (mass/v olum Blood = 35.9 42.0-52 complet hematoc 017 % .0 ed rit 06:05 (volume fractio n) Granulo = 71.5 37.0-80 complet cyte 017 % .0 ed percent 06:05 age Blood = 6.4 1.3-8.0 complet granulo 017 K/mm3 ed cytes 06:05 automat ed count (numb Automat = 3.3 % 0.1-12. complet ed 017 0 ed blood 06:05 eosinop hils/10 0 leukocy t Automat = 0.3 0.0-0.4 complet ed 017 K/mm3 ed blood 06:05 eosinop hil count Baso % = 0.8 % 0.1-2.0 complet 017 ed 06:05 Automat 2 = 0.1 0-0.2 complet ed 017 K/MM3 ed blood 06:05 basophi l count (count/ vo Basic metabolic panel (06-19-2017 06:05) Serum 06-19- = 142 136-145 complet sodium 017 mmoL/L ed measure 06:05 ment Serum = 3.7 3.5-5.1 complet potassi 017 mmoL/L ed um 06:05 measure ment Serum = 107 74-106 complet or 017 mg/dL ed plasma 06:05 glucose measure ment (mas Estimat = 28 >60 complet ed 017 ML/MIN ed glomeru 06:05 lar filtrat ion rate (GF Comment: REFERENCE RANGE: >60 ML/MIN/1.73 SQUARE METERS Comment: If this patient is -Ugandan, then multiply the Comment: result by 1.210. Estimat = 23 50-200 complet ion of 017 [...] plasma 06:05 urea nitroge n measure men Fecal occult blood test (06-18-2017 20:55) Comment: [...] SQUARE METERS Comment: If this patient is -Ugandan, then multiply the Comment: result by 1.210. [...] blood 06:05 platele t mean volume deedee [place] % = 8.0 % 1.7-9.3 complet 017 [...] blood 06:05 platele t mean volume deedee [place] % = 6.7 % 1.7-9.3 complet 017 [...] SQUARE METERS Comment: If this patient is -Ugandan, then multiply the Comment: result by 1.210. [...] 06:05 chlorid e measure ment (mo Serum 2 = 9.0 8.5-10. complet or 017 mg/dL 1 ed plasma 06:05 calcium measure ment (mas Serum 2 = 57 7-18 complet or 017 mg/dL ed plasma 06:05 urea nitroge n measure men Basic metabolic panel (06-16-2017 06:20) Serum 06-16-2 = 109 74-106 complet or 017 mg/dL [...] SQUARE METERS Comment: If this patient is -Ugandan, then multiply the Comment: result by 1.210. [...] blood 06:20 platele t mean volume [place] % = 6.4 % 1.7-9.3 complet 017 [...] hematocrit pa (06-16-2017 03:45) Comment: COMMENTS TO OPTICAL ADVISOR: POST TRANSFUSION Blood = 8.7 14.1-18 complet [...] Comment: BLOOD UNIT # : [id number] RELEASED 06/26/17 Comment: Eladia Chua Leukocyte reduction of packed red blood (06-15-2017 20:22) Leukocy BLOOD complet te 017 UNIT ed reducti 20:22 RELEASE on of BLOOD packed UNIT red RELEASE blood L Comment: BLOOD UNIT # : [id number] RELEASED 06/15/17 Comment: Sarah Solis Blood product special preparation [Type] (06-15-2017 20:22) Blood BLOOD complet product 017 UNIT ed 20:22 RELEASE special prepara tion [Type] Whole blood hemoglobin and hematocrit pa (06-15-2017 19:29) Blood = 7.4 14.1-18 complet hemoglo 017 g/dL .0 ed bin 19:29 measure ment (mass/v olum Comment: Comment: CRITICAL RESULTS Comment: RESULTS CALLED TO: BOBBY Comment: 06/15/17 1949 Sarah Solis Blood = 23.0 42.0-52 complet hematoc 017 [...] & Crossmatch panel in Blood (06-15-2017 17:05) Major COMPAT complet crossma 017 ed tch 17:05 [interp retatio n] Major COMPAT complet crossma 017 ed tch 17:05 [...] mmoL/L .0 ed 08:50 measure ment Serum 2 = 104 98-107 complet or 017 mmoL/L ed plasma 08:50 chlorid e measure ment (mo Serum 06-14-2 = 10.3 8.5-10. complet or 017 mg/dL 1 ed plasma 08:50 calcium measure ment (mas Serum 2 = 88 7-18 complet or 017 mg/dL ed plasma 08:50 urea nitroge n measure men Comment: NOTIFICATION RESULT Serum 06-14-2 = 0.4 0.2-1.0 complet or 017 mg/dL ed plasma 08:50 total bilirub in measure m Serum 06-14-2 = 118 46-116 complet or 017 U/L ed plasma 08:50 alkalin e phospha tase deedee Serum 06-14-2 = 3.0 3.4-5.0 complet or 017 gm/dL ed plasma 08:50 albumin measure ment (mas Serum 06-14-2 = 0.8 1.1-1.8 complet or 017 ed plasma 08:50 albumin /globul in mass ra Protein 10-25-2 = 6.9 6.4-8.2 complet total 017 gm/dL ed ser/sadia 08:50 s ALT = 14 12-78 complet (SGPT) 017 U/L ed ser/sadia 08:50 s Serum 2 = 17 15-37 complet or 017 U/L ed plasma 08:50 asparta te aminotr ansfera Serum = 139 136-145 complet sodium 017 mmoL/L ed measure 08:50 ment Serum 2 = 5.4 3.5-5.1 complet potassi 017 mmoL/L [...] SQUARE METERS Comment: If this patient is -Ugandan, then multiply the Comment: result by 1.210. [...] blood 08:50 platele t mean volume deed[place] % = 4.9 % 1.7-9.3 complet 017 [...] SQUARE METERS Comment: If this patient is -Ugandan, then multiply the Comment: result by 1.210. [...] mass ra Cardiac enzymes (05-28-2017 00:20) Serum 2 = 3.6 0-4.0 complet or 017 U/L ed plasma 00:20 creatin e kinase MB (CK-M Serum = 0.59 0.00-0. complet or 017 ng/mL 06 ed plasma 00:20 troponi n i.cardi ac measu Comment: CRITICAL RESULTS Comment: RESULTS CALLED TO: Bridget SHAFER TACTICAL AIR CONTROL PARTY 05/28/17 0130 Comment: Tay Weiner Comment: > [...] blood 00:20 platele t mean volume deed[place] % = 9.1 % 1.7-9.3 complet 017 [...] SerPl-mCnc (03-29-2017 10:53) NT-proB 4620 0-1799 complet SETTER OFF 017 pg/mL ed SerPl-m 10:53 Cnc Lipase SerPl-cCnc (03-29-2017 10:53) Lipase 28 U/L 19-63 complet SerPl-c 017 ed Cnc 10:53
--- OUTSIDE RECORDS SUMMARY | 2017-06-28 16:05 | External Medical Summary Rpt | CCD ---
Demographics Preferred Language German Marital Status Unknown Zoroastrianism Affiliation Unknown Race Unknown Ethnic Group Unknown Author Author , VIOLETTA SHIPLEY Address Unknown Phone Immunization No patient found.
--- OUTSIDE RECORDS SUMMARY | 2017-06-28 16:05 | External Medical Summary Rpt | CCD ---
Demographics Preferred Language Greek Marital Status Unknown Pentecostal Affiliation Unknown Race Unknown Ethnic Group Unknown Author Author , VIOLETTA SHIPLEY Address Unknown Phone Immunization No patient found.
--- OUTSIDE RECORDS SUMMARY | 2017-06-28 16:05 | External Medical Summary Rpt | CCD ---
Author Author , VIOLETTA SHIPLEY Address Unknown Phone [email or web address] Purpose Continuity of Care Document - 03-29-2017 [...] blood 06:05 platele t mean volume [place] % 06-19-2 = 6.7 % 1.7-9.3 complet [...] SQUARE METERS Comment: If this patient is -Guamanian, then multiply the Comment: result by 1.210. [...] SQUARE METERS Comment: If this patient is -Guamanian, then multiply the Comment: result by 1.210. [...] blood 06:05 platele t mean volume [place] % = 8.0 % 1.7-9.3 complet 017 [...] blood 06:05 platele t mean volume [place] % = 6.7 % 1.7-9.3 complet 017 [...] SQUARE METERS Comment: If this patient is -Guamanian, then multiply the Comment: result by 1.210. [...] SQUARE METERS Comment: If this patient is -Guamanian, then multiply the Comment: result by 1.210. [...] blood 06:20 platele t mean volume [place] % = 6.4 % 1.7-9.3 complet 017 [...] hematocrit pa (06-16-2017 03:45) Comment: COMMENTS TO CIRCUS PERFORMER: POST TRANSFUSION Blood = 8.7 14.1-18 complet [...] Comment: BLOOD UNIT # : [id number] RELEASED 06/26/17 Comment: Eladia Chua Leukocyte reduction of packed red blood (06-15-2017 20:22) Leukocy BLOOD complet te 017 UNIT ed reducti 20:22 RELEASE on of BLOOD packed UNIT red RELEASE blood L Comment: BLOOD UNIT # : [id number] RELEASED 06/15/17 Comment: Sarah Solis Blood product [...] SQUARE METERS Comment: If this patient is -Guamanian, then multiply the Comment: result by 1.210. [...] blood 08:50 platele t mean volume [place] % = 4.9 % 1.7-9.3 complet 017 [...] SQUARE METERS Comment: If this patient is -Guamanian, then multiply the Comment: result by 1.210. [...] RESULTS Comment: RESULTS CALLED TO: Bridget SHAFER ASSISTANT TRACK COACH 05/28/17 0130 Comment: Tay Weiner Comment: > [...] blood 00:20 platele t mean volume [place] % = 9.1 % 1.7-9.3 complet 017 [...] SerPl-mCnc (03-29-2017 10:53) NT-proB 4620 0-1799 complet TAPE RECORDER MECHANIC 017 pg/mL ed SerPl-m 10:53 Cnc Lipase SerPl-cCnc (03-29-2017 10:53) Lipase 28 U/L 19-63 complet SerPl-c 017 ed Cnc 10:53
[2017-06-28 16:06] LABS: HEMOGLOBIN 10.5 g/dL (14.1-18.0); LYMPH # 1.1 K/mm3 (0.7-4.5); LYMPH % 9.1 % (10-50)
--- OUTSIDE RECORDS SUMMARY | 2017-06-28 16:08 | External Medical Summary Rpt ---
Author Author VIOLE[employer] Bowers, [employer] Organization [employer] Address Unknown Phone Unavailable Results Glucose [Mass/volume] in Capillary blood by Glucometer Observa Value Referen Units Interpr Notes Date tion ce etation Range Glucose 70 - 110 mg/dl High No Jun 28 [Mass/vol informati 2017 3:33 ume] in on in PM Capillary source blood by data Glucomete r CBC W Auto Differential panel in Blood Observa Value Referen Units Interpr Notes Date tion ce etation Range Basophils 0 - 0.2 K/MM3 Normal No Jun 19 informati 2016 6:05 [#/volume on in AM ] in source Blood by data Automated count Basophils 0.1 - 2.0 % Normal No Jun 19 informati 2017 6:05 leukocyte on in AM s in source Blood by data Automated count Eosinophi 0.0 - 0.4 K/mm3 Normal No Jun 19 ls informati 2016 6:05 [#/volume on in AM ] in source Blood by data Automated count Eosinophi 0.1 - % Normal No Jun 19 ls/100 12.0 informati 2016 6:05 leukocyte on in AM s in source Blood by data Automated count Granulocy 1.3 - 8.0 K/mm3 Normal No Jun 19 jefe informati 2016 6:05 [#/volume on in AM ] in source Blood by data Automated count Granulocy 37.0 - % Normal No Jun 19 jefe/100 80.0 informati 2017 6:05 leukocyte on in AM s in source Blood by data Automated count Hematocri 42.0 - % Low No Jun 19 t [Volume 52.0 informati 2016 6:05 on in AM Fraction] source of Blood data Hemoglobi 14.1 - g/dL Low No Jun 19 n 18.0 informati 2016 6:05 [Mass/vol on in AM ume] in source Blood data Lymphocyt 0.7 - 4.5 K/mm3 Normal No Jun 19 es informati 2016 6:05 [#/volume on in AM ] in source Unspecifi data ed specimen by Automated count Lymphocyt 10 - 50 % Normal No Jun 19 es informati 2016 6:05 [#/volume on in AM ] in source Unspecifi data ed specimen by Automated count Erythrocy 27 - 31.2 pg Normal No Jun 19 te mean informati 2016 6:05 corpuscul on in AM ar source hemoglobi data n [Entitic mass] Erythrocy 31.8 - g/dl Low No Jun 19 te mean 35.4 informati 2017 6:05 corpuscul on in AM ar source hemoglobi data n concentra tion [Mass/vol ume] by Automated count Erythrocy 82.2 - fl Normal No Jun 19 te mean 97.8 informati 2017 6:05 corpuscul on in AM ar volume source [Entitic data volume] by Automated count Monocytes 0.1 - 1.0 K/mm3 Normal No Jun 19 informati 2016 6:05 [#/volume on in AM ] in source Blood by data Automated count Monocytes 1.7 - 9.3 % Normal No Jun 19 /100 informati [...] Leukocyte 4.8 - K/MM3 Normal No Jun 19 s 10.8 informati 2016 6:05 [#/volume on [...] mmoL/L High No Jun 19 [Moles/vo informati 2016 6:05 [...] Jun 18 bin.gas E informa informa informa 2017 trointe tion in tion in tion in [...] Normal No Jun 18 [Mass/vol 10.1 informati 2017 6:05 ume] in on in AM Serum or source Plasma data Chloride 98 - 107 mmoL/L High No Jun 18 [Moles/vo informati 2017 6:05 lume] in on in AM Serum or source Plasma data Carbon 21.0 - mmoL/L Normal No Jun 18 dioxide, 32.0 informati 2017 6:05 total on in AM [Moles/vo source lume] in data Serum or Plasma Creatinin 0.70 - mg/dL High No Jun 18 e 1.30 informati 2017 6:05 [Mass/vol on in AM ume] in source Serum or data Plasma Creatinin 50 - 200 ML/MIN Low No May 29 e renal informati 2017 6:05 clearance on [...] Basophils 0.1 - 2.0 % Normal No Oct /100 informati 2016 6:05 leukocyte on in [...] Normal No Jun 18 jefe/100 80.0 informati 2017 6:05 leukocyte on [...] K/mm3 Normal No Jun 18 es informati 2017 6:05 [#/volume on in AM ] in source Unspecifi data ed specimen by Automated count Lymphocyt 10 - 50 % Normal No Jun 18 es informati 2016 6:05 [#/volume on in AM ] in source Unspecifi data ed specimen by Automated count Erythrocy 27 - 31.2 pg Normal No Jun 18 te mean informati 2017 6:05 corpuscul on in AM ar source hemoglobi data n [Entitic mass] Erythrocy 31.8 - g/dl Normal No Jun 18 te mean 35.4 informati 2017 6:05 corpuscul on in AM ar source hemoglobi data n concentra tion [Mass/vol ume] by Automated count Erythrocy 82.2 - fl Normal No Jun 18 te mean 97.8 informati 2016 6:05 corpuscul on in AM ar volume source [Entitic data volume] by Automated count Monocytes 0.1 - 1.0 K/mm3 Normal No Jun 18 informati 2017 6:05 [#/volume on in AM ] in source Blood by data Automated count Monocytes 1.7 - 9.3 % Normal No Jun 18 /100 informati 2017 6:05 leukocyte on in [...] Normal No Jun 18 te 17.5 informati 2017 6:05 distribut on in AM ion width source [Entitic data volume] by Automated count Leukocyte 4.8 - K/MM3 Normal No May 29 s 10.8 informati 2017 6:05 [#/volume on in AM ] in source Blood data Basic metabolic panel in Blood Observa Value Referen Units Interpr Notes Date tion ce etation Range Urea 7 - 18 mg/dL High No Jun 17 nitrogen informati 2017 6:05 [Mass/vol on in AM ume] in source Serum or data Plasma Calcium 8.5 - mg/dL Normal No Jun 17 [Mass/vol 10.1 informati 2017 6:05 ume] in on in AM Serum or source Plasma data Chloride 98 - 107 mmoL/L High No Jun 17 [Moles/vo informati 2017 6:05 lume] in on in AM Serum or source Plasma data Carbon 21.0 - mmoL/L Normal No Jun 17 dioxide, 32.0 informati 2017 6:05 total on in AM [Moles/vo source lume] in data Serum or Plasma Creatinin 0.70 - mg/dL High No Jun 17 e 1.30 informati 2017 6:05 [Mass/vol on in AM ume] in source Serum or data Plasma Creatinin 50 - 200 ML/MIN Low No May 28 e renal informati 2017 6:05 clearance on in AM source predicted data by Cockcroft -Gault formula Estimated >60 ML/MIN No REFERENCE May 28 informati RANGE: 2017 6:05 glomerula on in >60 AM r source ML/MIN/1. filtratio data 73 SQUARE n rate METERSIf (GF this patient is -A merican, then multiply theresult by 1.210. Glucose 74 - 106 mg/dL High No May 28 [Mass/vol informati 2017 6:05 ume] in on in AM Serum or source Plasma data Potassium 3.5 - 5.1 mmoL/L Normal No Oct 28 informati 2017 6:05 [Moles/vo on in AM lume] in source Serum or data Plasma Sodium 136 - 145 mmoL/L Normal No May 28 [Moles/vo informati 2017 6:05 lume] in on [...] K/mm3 Normal No Jun 17 es informati 2016 6:05 [#/volume on in AM ] in source Unspecifi data ed specimen by Automated count Lymphocyt 10 - 50 % Normal No Jun 17 es informati 2016 6:05 [#/volume on in AM ] in source Unspecifi data ed specimen by Automated count Erythrocy 27 - 31.2 pg Normal No Jun 17 te mean informati 2016 6:05 corpuscul on in AM ar source hemoglobi data n [Entitic mass] Erythrocy 31.8 - g/dl Normal No Jun 17 te mean 35.4 informati 2016 6:05 corpuscul on in AM ar source hemoglobi data n concentra tion [Mass/vol ume] by Automated count Erythrocy 82.2 - fl Normal No Jun 17 te mean 97.8 informati 2017 6:05 corpuscul on in AM ar volume source [Entitic data volume] by Automated count Monocytes 0.1 - 1.0 K/mm3 Normal No Jun 17 informati 2017 [...] Normal No Jun 17 te 17.5 informati 2016 6:05 distribut on [...] mmoL/L High No Jun 16 [Moles/vo informati 2017 6:20 lume] in on in AM Serum or source Plasma data Carbon 21.0 - mmoL/L Normal No Jun 16 dioxide, 32.0 informati 2017 6:20 total on in AM [Moles/vo source lume] in data Serum or Plasma Creatinin 0.70 - mg/dL High No Jun 16 e 1.30 informati 2017 6:20 [Mass/vol on in AM ume] in source Serum or data Plasma Creatinin 50 - 200 ML/MIN Low No Jun 16 e renal informati 2017 6:20 clearance on [...] - 5.1 mmoL/L Normal No Jun 16 inform2016 6:20 [Moles/vo on in AM lume] in source Serum or data Plasma Sodium 136 - 145 mmoL/L Normal No Jun 16 [Moles/vo informati 2016 6:20 lume] in on in AM Serum or source Plasma data CBC W Auto Differential panel in Blood Observa Value Referen Units Interpr Notes Date tion ce etation Range Basophils 0 - 0.2 K/MM3 Normal No Jun 16 inform2016 6:20 [#/volume on in AM ] in source Blood by data Automated count Basophils 0.1 - 2.0 % Normal No Jun 16 / informati 2016 6:20 leukocyte on in AM [...] % Normal No Jun 16 /100 informati 2017 6:20 leukocyte on in AM s in source Blood by data Automated count Platelet 7.4 - fl Normal No Jun 16 mean 10.4 informati 2016 6:20 volume on in AM [Entitic source volume] data in Blood by Automated count Platelets 142 - 424 K/mm3 No No Jun 16 informati informati 2017 6:20 [#/volume on in on in AM [...] Date tion ce etation Range COMMENTS TO PHILATELIC CONSULTANT: POST TRANSFUSION Hematocri 42.0 - % Low [...] informa informa informa UNIT # 2017 RELEASE ti in in in : W0382 special source source source 17 data data data [id number] prepara RELEASE tion D [Type] 7Jackso n,Joonto nadege Blood product special preparation [Type] Observa Value Referen Units Interpr Notes Date ti ce etation Range Blood BLOOD No No No BLOOD Jun 15 product UNIT informa informa informa UNIT # 2017 RELEASE tion in ti in in : W0382 8:22 PM special source source source 17 data data data [id number] prepara RELEASE ti D [Type] 7O'Nupur Leary Hemoglobin & Hematocrit panel in Blood Observa Value Referen Units Interpr Notes Date ti ce etation Range Hematocri 42.0 - % Low alert Jun 15 t [Volume 52.0 2016 7:29 CRITICAL PM Fraction] RESULTS of Blood RESU LTS CALLED TO: BOBBY 06/15/17 1950 O'Gely Leary Hemoglobi 14.1 - g/dL Low alert Jun [...] tch tion in tion in tion in in 5:05 PM [interp source source source source retatio data data data data n] Major COMPAT No No No No Jun 15 crossma informa informa informa informa 2016 tch tion in tion in tion in ti in 5:05 PM [interp source source source source retatio data data data data n] by Immedia te spin Blood type & Crossmatch panel in Blood Observa Value Referen Units Interpr Notes Date ti ce etation Range Hold? N Transfuse now? 1 UNIT NOW Blood NEGATIV NEGATIV No No No Jun 15 group E E informa informa informa 2016 antibod tion in tion in ti in 5:05 PM y source source source [...] [Type] tion in tion in tion in ti in 5:05 PM in source source source [...] Low No Jun 14 lobulin informati informati 2017 8:50 [Mass on in on in AM ratio] in source source Serum or data data Plasma Albumin 3.4 - 5.0 gm/dL Low No Jun 14 [Mass/vol informati 2017 8:50 ume] in on in AM Serum or source Plasma data Alkaline 46 - 116 U/L High No Jun 14 phosphata informati 2017 8:50 se on in AM [Enzymati source c data activity/ volume] in Serum or Plasma Bilirubin 0.2 - 1.0 mg/dL Normal No May 25 .total informati 2016 8:50 [Mass/vol on in AM ume] in source Serum or data Plasma Urea 7 - 18 mg/dL High Jun 14 nitrogen NOTIFICAT 2017 8:50 [Mass/vol ION AM ume] in RESULT Serum or Plasma Calcium 8.5 - mg/dL High No Jun 14 [Mass/vol 10.1 informati 2017 8:50 ume] in [...] Creatinin 0.70 - mg/dL High No May 25 e 1.30 informati 2016 8:50 [Mass/vol on in AM ume] in source Serum or data Plasma Creatinin 50 - 200 ML/MIN Low No Jun 14 e renal informati 2016 8:50 clearance on in AM source predicted data by Cockcroft -Gault formula Estimated >60 ML/MIN No REFERENCE May 25 informati RANGE: 2017 8:50 glomerula on in >60 AM r source ML/MIN/1. filtratio data 73 SQUARE n rate METERSIf (GF this patient is -A merican, then multiply theresult by 1.210. Globulin 1.3 - 3.2 gm/dL High No Jun 14 [Mass/vol informati 2017 8:50 ume] in on in AM Serum source data Glucose 74 - 106 mg/dL High No May 25 [Mass/vol informati 2016 8:50 ume] in on in AM Serum or source Plasma data Potassium 3.5 - 5.1 mmoL/L High No May 25 informati 2017 8:50 [Moles/vo on in AM lume] in source Serum or data Plasma Sodium 136 - 145 mmoL/L Normal No May 25 [Moles/vo informati 2017 8:50 lume] in on in AM Serum or source Plasma data Aspartate 15 - 37 U/L Normal No Jun 14 inform2016 8:50 aminotran on in AM sferase source [Enzymati data c activity/ volume] in Serum or Plasma Alanine 12 - 78 U/L Normal No Jun 14 aminotran inform2016 8:50 sferase on in AM [Enzymati source [...] - 2.0 % Normal No Jun 14 informati 2016 8:50 leukocyte on in AM [...] pg Normal No Jun 14 te mean inform2016 8:50 corpuscul on in AM ar source hemoglobi data n [Entitic mass] Erythrocy 31.8 - g/dl Low No Jun 14 te mean 35.4 inform2016 8:50 corpuscul on in AM ar source [...] 0 - 4.0 U/L Normal No May 8 kinase.MB inform2016 /Creatine on in 12:20 AM [...] or Plasma Troponin 0.00 - ng/mL High Oct 8 I.cardiac 0.06 2017 CRITICAL 12:20 AM [Mass/vol RESULTS ume] in Serum or RESU Plasma LTS CALLED TO: Bridget SONI TEMPLATE STORAGE CLERK 05/28/17 0130Spark s,Tay> 0.5 IS CONSISTEN T WITH MYOCARDIA L [...] formula Estimated >60 ML/MIN No REFERENCE May 28 informati RANGE: 2017 glomerula on in >60 [...] 2.0 % Normal No May 28 /100 2016 leukocyte on in 12:20 AM s in source Blood by data Automated count Eosinophi 0.0 - 0.4 K/mm3 Normal No May 28 ls 2016 [#/volume on in 12:20 AM ] in source Blood by data Automated count Eosinophi 0.1 - % Normal No May 28 ls/100 12.0 2016 leukocyte on in 12:20 AM s [...] Low No May 28 t [Volume 52.0 ati 2016 on in 12:20 AM Fraction] source of Blood data Hemoglobi 14.1 - g/dL Low No May 28 n 18.0 informati 2016 [Mass/vol on in 12:20 AM ume] in source Blood data Lymphocyt 0.7 - 4.5 K/mm3 Normal No May 28 es inform2016 [#/volume [...] 9.3 % Normal No May 28 /100 inform2016 leukocyte on in 12:20 AM s in source Blood by data Automated count Platelet 7.4 - fl Normal No May 28 mean 10.4 inform2016 volume on in 12:20 AM [Entitic source [...] Erythrocy 11.5 - % Normal No May 8 te 17.5 informati 2017 distribut on in 12:20 AM ion width source [Entitic data volume] by Automated count Leukocyte 4.8 - K/MM3 Normal No May 28 s 10.8 informati 2016 [#/volume on in 12:20 AM ] in source Blood data Basic metabolic panel in Blood Observa Value Referen Units Interpr Notes Date tion ce etation Range Urea 7 - 18 mg/dL High No Sep 21 nitrogen informati 2016 6:30 [Mass/vol on in AM ume] in source Serum or data Plasma Calcium 8.5 - mg/dL Low No May 11 [Mass/vol 10.1 informati 2017 6:30 ume] in on in AM Serum or source Plasma data Chloride 98 - 107 mmoL/L Normal No May 11 [Moles/vo informati 2016 6:30 lume] in on in AM Serum [...] Glucose 74 - 106 mg/dL Normal No Apr 21 [Mass/vol informati 2016 6:30 ume] in on in AM Serum or source Plasma data Potassium 3.5 - 5.1 mmoL/L Low alert May 11 2016 6:30 [Moles/vo CRITICAL AM lume] in [...] - ng/mL High Sep 20 I.cardiac 0.06 2017 8:50 CRITICAL AM [Mass/vol RESULTS ume] in Serum or RESU Plasma LTS CALLED TO: JEFFYBimalLIZABETH 05/10/17 0937 Elo Workman> 0.5 IS CONSISTEN T WITH MYOCARDIA L ISCHEMIA OR INFARCTIO N Lipid 1996 panel in Serum or Plasma Observa Value Referen Units Interpr Notes Date tion ce etation Range COMMENTS TO PHILATELIC CONSULTANT: PER CT PROTOCOL Cholester < 200 mg/dL [...] or Plasma RESU LTS CALLED TO: ADDIS GillBimal 05/10/17 0320 Rita Chua ictoria Sodium 136 [...] High No Sep 13 jefe/100 80.0 informati 2017 6:00 leukocyte on in AM [...] ML/MIN No REFERENCE Sep 13 informati RANGE: 2016 6:00 glomerula on in >60 AM r [...] Normal No Sep 12 te 17.5 informati 2016 6:10 distribut on in AM ion width [...]
--- OUTSIDE RECORDS SUMMARY | 2017-06-28 16:08 | External Medical Summary Rpt ---
[...] Date tion ce etation Range COMMENTS TO LEGAL INVESTIGATOR: POST TRANSFUSION Hematocri 42.0 - % Low [...] source source source 17 data data data [id number] prepara RELEASE tion D [Type] 7Jackso n,Joonto nadege Blood product special preparation [Type] Observa Value Referen Units Interpr Notes Date ti ce etation Range Blood BLOOD No No No BLOOD Jun 15 product UNIT informa informa informa UNIT # 2017 RELEASE tion in ti in in : W0382 8:22 PM special source source source 17 data data data [id number] prepara RELEASE ti D [Type] 7O'Nupur Leary [...] RESU Plasma LTS CALLED TO: Bridget SONI BATTERY CONTAINER TESTER 05/28/17 0130Spark s,Tay> 0.5 IS CONSISTEN T [...] Date tion ce etation Range COMMENTS TO LEGAL INVESTIGATOR: PER ME PROTOCOL Cholester < 200 mg/dL No No [...]
[2017-06-28 16:18] LABS: URINE BILIRUBIN - DIPSTICK NEGATIVE (NEG); URINE BLOOD 1+ (NEG)
--- NOTE | 2017-06-28 16:31 | RADIOLOGY REPORT PS360 ---
CHEST-PORTABLE HISTORY: seizures ORDERING PHYSICIAN: Flavio Sexton MD PATIENT AGE: 86 years COMPARISON: 05/01/2017 FINDINGS: There is mild cardiomegaly without failure. No acute bony anomalies. There are surgical clips in the right peritracheal region. Minimal atelectatic changes present in the left lung base. Lungs are otherwise clear.. IMPRESSION: No acute finding
[2017-06-28 17:39] VITALS: BP 136/83
[2017-06-28 17:55] LABS: NEUTROPHILS 85 % (42-76)
[2017-06-28 17:57] VITALS: BP 136/83
[2017-06-28 19:48] VITALS: BP 135/88
[2017-06-28 23:55] VITALS: BP 141/69
[2017-06-29 04:30] VITALS: BP 139/68
[2017-06-29] MEDS ORDERED: NORCO 325 MG-51 TAB PO (05:38)
[2017-06-29] MEDS ORDERED: KEPPRA500 MG PO (05:38)
--- NOTE | 2017-06-29 07:11 | Discharge Summary Standard ---
See Addendum Demographics: Admit date: 06/28/17 Chief complaint: Seizures PRIMARY DIAGNOSIS: SEIZURES Allergies: Coded Allergies: BANANAS (FOOD) (05/01/17) Cantaloupe (05/10/17) watermelon (05/10/17) History of present illness: History of present illness: 86-year-old male with history of coronary artery disease and abdominal aortic aneurysm with suspected history of seizures presented to the emergency department yesterday afternoon after 2 witnessed seizures [place] the [place] he [place] an additional seizure in the emergency department. Patient was postictal in the emergency department and somewhat drowsy after being given Ativan. Patient was kept overnight for monitoring and loaded with Keppra. Patient has a history of suspected seizures and was even evaluated at the [facility] in March of this year. In talking with the ER physician yesterday there is reference to Keppra and some of his older medical records but he is not currently on that medication. Patient was given a gram of Keppra intravenously and admitted. He did not have any further seizure activity overnight Past medical history: Family HX Family Hx Insignificant No Diabetes Yes CAD Yes Hypertension No Hyperlipidemia No Cancer No TB No Immunization HX DT/Tetanus Unknown Flu Refused Pneumonia Refuses TB Test in last year Yes Result Negative General CAD? No Angina: No CT: No Hypertension? Yes Hyperlipidemia? No CHF? No DVT? No PE? No COPD? No Asthma? No Anemia? No GERD? No Gastric ulcers? No GI Bleed? No Hernia? No Thyroid Problems? No Hypothyroidism? No CVA? No Seizures? Yes Diabetes? No Renal Insuffiency? No UTI? No Stones? No BPH? No GB Disease: No Nephritic Syndrome? No Asplenia? No Hepatitis? No Sickle Cell Disease? No Arthritis? No Migraines? No Cataracts? No Glaucoma? No MRSA? No HIV? No TB? No Anxiety? No Depression? No Cancer? No More? No Past Surgical HX Previous Surgery?Y MASTOID CAROTID CARDIAC STENTS X3 Current home meds: Active Scripts Atorvastatin Calcium (Atorvastatin) 40 MG PO QHS #30 TAB Ref 11 Prov: 05/04/17 Carvedilol 3.125 MG PO BID #60 TAB Ref 2 Prov: 05/10/17 Clopidogrel Bisulfate (Plavix) 75 MG PO DAILY #30 TAB Ref 5 Prov: 05/10/17 Potassium Chloride (Klor-Con M20) 20 MEQ PO BID #60 TER Ref 2 Prov: 05/11/17 Psyllium Husk/Aspartame (Metamucil Powder) 662 GM PO DAILY #120 Ref 11 Prov: 06/19/17 Discontinued Scripts HYDROCODONE/ACETAMINOPHEN ([place] 5-325 Tablet) 1 TAB PO Q4HP PRN MODERATE TO SEVERE PAIN #120 TAB Prov: 06/19/17 DC: 06/29/17 0538 Reported Medications ASPIRIN (Aspirin) 81 MG PO DAILY MULTIVITAMIN (Daily Multiple Vitamin) 1 TAB PO DAILY Amlodipine Besylate (Amlodipine) 5 MG PO DAILY AMLODIPINE BESYLATE (Norvasc) 10 MG PO DAILY Social Hx: Smoking HX Tobacco No Packs/day < 1 PACK Alcohol Alcohol: No Hx of Drug Use Drug Use? No Patien't marital status is Patient's support system is good Review of systems: Constitutional no symptoms reported. Respiratory no symptoms reported. Cardiovascular no symptoms reported Gastrointestinal/Abdominal no symptoms reported Genitourinary no symptoms reported. Musculoskeletal no symptoms reported. Skin other (bilateral heel ulcers). Neurological Yes: see HPI. Exam: Lab data for last 24 hours: Laboratory Tests 06/29/17 0500: Troponin I 0.08 H 06/29/17 0100: Troponin I 0.08 H 06/28/17 2055: Troponin I 0.06 06/28/17 1608: Urine Color YELLOW, Urine Appearance CLEAR, Urine pH 5.0, Ur Specific [place] >= 1.030, Urine Protein 1+ H, Urine Ketones NEGATIVE, Urine Blood 1+ H, Urine Nitrate NEGATIVE, Urine Bilirubin NEGATIVE, Urine Urobilinogen 0.2, Ur Leukocyte Esterase NEGATIVE, Urine RBC 5-10, Urine WBC 5-10, Ur Squamous Epith Cells 5-10, Amorphous Sediment 2+, Urine Bacteria 2+, Hyaline Casts 5-10, WBC Casts 5-10, Urine Glucose NEGATIVE 06/28/17 1542: Sodium 137, Potassium 4.3, Chloride 103, Carbon Dioxide 18 L, BUN 28 H, Creatinine 2.7 H, Estimated Creat Clear 19 L, Estimated GFR (MDRD) 22, Glucose 137 H, Calcium 8.9, Total Bilirubin 0.5, AST 15, ALT 14, Alkaline Phosphatase 124 H, Troponin I 0.04, Total Protein 7.1, Albumin 3.0 L, Globulin 4.1 H, Albumin/Globulin Ratio 0.7 L, WBC 11.9 H, RBC 3.50 L, Hgb 10.5 L, Hct 34.1 L, MCV 97.3, RDW 15.4, Plt Count 286, MPV 8.1, Gran % 85.9 H, Gran # 10.3 H, Total Counted 100, Lymphocytes % 9.1 L, Monocytes % 3.8, Eosinophils % 0.3, Basophils % 0.8, Neutrophils 85 H, Lymphocytes (Manual) 9 L, Lymphocytes # 1.1 , Monocytes (Manual) 3, Monocytes # 0.5, Eosinophils # 0.0, Eosinophils # ( Manual) 1, Basophils # 0.1, Basophils # (Manual) 1, Metamyelocytes 1, Platelet Estimate NORMAL, PUBS MCHC 30.9 L, MCH 30.1 06/28/17 1533: POC Glucose 142 H Microbiology 06/28 1608 URINE,FO: Urine Culture - RECD Admission vital signs: 1ST Vital Signs Result Date Time Pulse Ox 95 06/28 1513 B/P 153/87 06/28 1513 Temp 97.9 06/28 1513 Pulse 81 06/28 1513 Resp 18 06/28 1513 O2 Delivery ROOM AIR 06/28 1739 O2 Flow Rate 2 06/28 1925 Exam General appearance: awake, no acute distress Cardiovascular: regular rate & rhythm Respiratory: clear to auscultation ABD: soft, no tenderness Musculoskeletal: motor intact, sensation intact Skin: bilateral heel ulcers Hospital Course Hospital Course: Patient was admitted. Seizure precautions were put in place. Patient does not have any further seizure activity. On the morning of the night the patient was drowsy but easily awakened. He was oriented to place and person. As he had no further seizure activity and had been loaded with Keppra, [place] [facility] [place] Due to patient's underlying renal disease a dose of 500 mg of Keppra twice daily is essentially the maximum dose. If renal function improves he may be able to stand 750 mg twice daily Medications Medications: Discharge meds are as noted. Follow up Follow up in office in: 1 DAY with: Aida Bear APRN at 0711
--- NOTE | 2017-06-29 07:49 | PHARMACY CLINIC NOTE ---
Patient Demographics Patient Demographics Admission date: 06/28/17 Date: 06/29/17 Time: 0748 Allergies Coded Allergies: BANANAS (FOOD) (05/01/17) Cantaloupe (05/10/17) watermelon (05/10/17) HEIGHT- FT: 5 IN: 11.00 K.514 VTE General Information Labs: Laboratory Tests 06/28 1542 Hematology Hgb (14.1 - 18.0 g/dL) 10.5 L Hct (42.0 - 52.0 %) 34.1 L Plt Count (142 - 424 K/mm3) 286 Disclaimer The following section includes nursing documentation that has been pulled in for pharmacy review. Patient's VTE score: 2 Patient's VTE Risk: VERY LOW RISK Clinical trial participant? No VTE prophylaxis NQF [id number] VTE prophylaxis ordered? Yes Type of prophylaxis/treatment: NATALIIA at 0715
[2017-06-29 08:00] VITALS: BP 147/73
[2017-06-29 09:00] VITALS: BP 147/73
== END 2017-06-29 09:05 ==
LOC: ER 15:12 → 2ND 15:58 → ER 15:58 → 2ND 17:15
PROVIDERS: Emergency Medicine
DX: G40.409 Other generalized epilepsy and epileptic syndromes, not intractable, without status epilepticus (principal); I10 Essential (primary) hypertension; L97.429 Non-pressure chronic ulcer of left heel and midfoot with unspecified severity; L97.419 Non-pressure chronic ulcer of right heel and midfoot with unspecified severity; Z79.02 Long term (current) use of antithrombotics/antiplatelets; Z79.82 Long term (current) use of aspirin; Z79.899 Other long term (current) drug therapy; Z95.5 Presence of coronary angioplasty implant and graft; Z83.3 Family history of diabetes mellitus; Z82.49 Family history of ischemic heart disease and other diseases of the circulatory system; Z91.018 Allergy to other foods; Z87.891 Personal history of nicotine dependence
CPT/HCPCS: G0378; J1953

== ENCOUNTER → 2017-07-06 | Outpatient (CLI) | payer MEDICARE, OTHER ==
[~2017-07-06] MED LIST changes: +KEPPRA500 MG PO; +NORVASC 10MG. T10 MG PO
--- NOTE | 2017-07-06 09:34 | RADIOLOGY REPORT PS360 ---
HIP RT 2-3V W/PELVIS IF PERFOR HISTORY: Follow-up fracture POST OP FU ORDERING PHYSICIAN: Castro Caldwell MD PATIENT AGE: 86 years COMPARISON: 05/19/2017 FINDINGS: Femoral decompression screw and short intramedullary roland remains in place stabilizing the comminuted right femoral neck fracture which remains in good alignment. There is some medial displacement of the lesser trochanteric fracture fragment. Skin clips have been removed. No evidence of dislocation. Fracture fragments are somewhat less apparent indicating healing with some callus formation along the lesser trochanter. IMPRESSION: Status post ORIF right femoral neck fracture with healing fracture and alignment.
== END ==
LOC: RAD 08:42
DX: Z48.89 Encounter for other specified surgical aftercare (principal)